=== PATIENT | male | born 1935 | race Caucasian/White ===

== ENCOUNTER 2016-07-09 20:34 | Observation (INO) | payer MEDICARE, BC ==
[~2016-07-09] VITALS: Ht 172.7 cm; Wt 90.1 kg
[~2016-07-09 20:34] MED LIST: ALLO300T74 PO; ATOR40TA64 PO; DIPH25CA84 PO; FAMO-14 PO; FINA5TAB40 PO; FOLI0.8T23 PO; FURO20TA4 PO; METO50TA5 PO; PYRI50TA24 PO; UBID200C8 PO; WARF4TAB6 PO
--- OUTSIDE RECORDS SUMMARY | 2016-07-09 20:39 | XMS REPORT | Continuity of Care Document ---
Demographics Preferred Language Unknown Marital Status Unknown Pentecostalism Affiliation Unknown Race Unknown Ethnic Group Unknown Author Author [facility] Organization [facility] Address Unknown Phone Unavailable Allergies Medications Medication Packaging Start Date Stop Date Route Dosage Sig Ambien 10 mg tablet Tablet 12/16/2015 10 mg 1 tablet qhs Problems Date Dx Coded Attending Type Code Diagnosis Diagnosed By 08/15/2015 G47.00 Insomnia, unspecified RUY MULLINS MD 08/15/2015 G47.33 Obstructive sleep apnea (adult) (pediatric) RUY MULLINS MD 11/07/2015 G47.33 Obstructive sleep apnea (adult) (pediatric) RUY MULLINS MD Procedures Code Description [place] [address] Office or other outpatient visit for the evaluation and management of a new patient, which requires RUY MULLINS MD 09/13/2015 81113 Office or other outpatient visit for the evaluation and management of a new patient, which requires RUY MULLINS MD 09/15/2015 72992 Office or other outpatient visit for the evaluation and management of an established patient, which RUY MULLINS MD 11/07/2015 36507 Office or other outpatient visit for the evaluation and management of an established patient, which RUY MULLINS MD 12/02/2015 18806 Office or other outpatient visit for the evaluation and management of an established patient, which RUY MULLINS MD 12/20/2015 Results Encounters ACCT No. Visit Date/Time Discharge Status Pt. Type Provider Facility Loc./Unit Complaint [id number] 09/13/2015 17:47:09 Document Registration
--- OUTSIDE RECORDS SUMMARY | 2016-07-09 20:39 | XMS REPORT | Referral Summary ---
Author Author [facility] Organization [facility] Address Unknown Phone Unavailable Care Team Providers Care Residential Real Estate Assistant Name Role Phone Wilmar Wilcox Primary Care Physician [phone] Encounter VC Date(s): 05/24/16 - 05/24/16 [facility] [address] [place] [id number]- Discharge Diagnosis: Actinic keratoses Discharge Disposition: 01-Home or Self Care Attending Physician: Niraj Wilcox MD Admitting Physician: Niraj Wiclox MD Vital Signs Most recent to 1 oldest [Reference Range]: Temperature Tympanic 36.7 degC [36.6-38.1 degC] (05/24/16 8:09 AM) Peripheral Pulse 80 bpm Rate [60-100 bpm] (05/24/16 8:09 AM) Respiratory Rate 14 br/min [14-20 br/min] (05/24/16 8:09 AM) Blood Pressure 138/80 mmHg [90-140/60-90 mmHg] (05/24/16 8:09 AM) Problem List Condition Effective Dates Status Health Status Informant Obesity(Confirmed) Active patient Allergies, Adverse Reactions, Alerts Substance Reaction Severity Status aspirin Active carisoprodol Active Medications allopurinol 300 mg oral tablet 300 mg 1 tabs, Oral, Daily, # 30 tabs, 0 Refill(s) Start Date: 05/09/16 Status: Ordered Ambien 5 mg oral tablet 5 mg 1 tabs, Oral, Bedtime (once a day), as needed for sleep, 0 Refill(s) Start Date: 05/09/16 Status: Ordered aspirin 81 mg oral tablet 81 mg 1 tabs, Oral, Daily, # 90 tabs, 0 Refill(s) Start Date: 05/09/16 Status: Ordered carvedilol 6.25 mg oral tablet 6.25 mg 1 tabs, Oral, BID, # 180 tabs, 0 Refill(s) Start Date: 05/09/16 Status: Ordered Co Q-10 200 mg, Oral, Daily, 0 Refill(s) Start Date: 05/09/16 Status: Ordered famotidine 20 mg oral tablet 20 mg 1 tabs, Oral, Daily, # 30 tabs, 0 Refill(s) Start Date: 05/09/16 Status: Ordered finasteride 5 mg oral tablet 5 mg 1 tabs, Oral, Daily, # 90 tabs, 0 Refill(s) Start Date: 05/09/16 Status: Ordered folic acid 0.4 mg oral tablet 0.4 mg 1 tabs, Oral, Daily, # 100 tabs, 0 Refill(s) Start Date: 05/09/16 Status: Ordered Lasix 40 mg oral tablet mg tabs, Oral, BID, 0 Refill(s) Start Date: 05/09/16 Status: Ordered Lipitor 40 mg oral tablet 40 mg 1 tabs, Oral, Daily, # 90 tabs, 0 Refill(s) Start Date: 05/09/16 Status: Ordered lisinopril 10 mg oral tablet 10 mg 1 tabs, Oral, Daily, # 90 tabs, 0 Refill(s) Start Date: 05/09/16 Status: Ordered potassium chloride 10 mEq oral capsule, extended release 10 mEq 1 caps, Oral, BID, # 180 caps, 0 Refill(s) Start Date: 05/09/16 Status: Ordered traMADol 50 mg oral tablet 1-2 tabs, Oral, q6hr, ndillons, # 60 tabs, 0 Refill(s) Start Date: 05/11/16 Stop Date: 06/12/16 Status: Ordered Vitamin B12 Oral, Daily, 0 Refill(s) Start Date: 05/09/16 Status: Ordered Vitamin B6 100 mg oral tablet mg tabs, Oral, Daily, 0 Refill(s) Start Date: 05/09/16 Status: Ordered warfarin 4 mg oral tablet mg tabs, Oral, Daily, take 1 daily TTHSS and 1.5 tabs MWF or as directed, 0 Refill(s) Start Date: 05/11/16 Status: Ordered zolpidem 10 mg oral tablet 10 mg 1 tabs, Oral, Bedtime (once a day), as needed for sleep, Coral Gardner, # 30 tabs, 0 Refill(s) Start Date: 05/24/16 Status: Ordered Results No data available for this section Immunizations No data available for this section Procedures Procedure Date Related Diagnosis Body Site Destruction (eg, laser surgery, 05/24/16 electrosurgery, cryosurgery, chemosurgery, surgical curettement), premalignant lesions (eg, actinic keratoses); first lesion Destruction (eg, laser surgery, 05/24/16 electrosurgery, cryosurgery, chemosurgery, surgical curettement), premalignant lesions (eg, actinic keratoses); second through 14 lesions, each (List separately in addition to code for first lesion) Social History Social History Type Response Smoking Status Former smoker; Type: Cigarettes; Date Last Use: 1955 Assessment and Plan Extracted from: Title: Office Visit Note Author: Niraj Wilcox MD Date: 05/24/16 Assessment/Plan 1.Actinic keratoses Using the cryo-guneach lesion was frozen for approximately 90 seconds. He tolerated this well. Natural progression of healing reviewed. If he runs into trouble or having any difficulties withthe healing process or if he has further questions or concerns or be glad to see him back. Encouraged him to keep his routinefollow-up for his other chronic health problems.
--- OUTSIDE RECORDS SUMMARY | 2016-07-09 20:39 | XMS REPORT | Continuity of Care Document ---
Author Author [facility] Organization [facility] Address Unknown Phone Unavailable Support Name Relationship Address Phone FREDA LERNER II, MD Caregiver [address] [place] [address] [place] [phone] SOFI ORTIZ MD Caregiver [address] [place] [address] [place] [phone] SILVIO FONSECA I Next Of Kin [address] [place] [address] Insurance Providers Payer Name Policy Number Subscriber Name Relationship Medicare [id number] Edmundo Fonseca 18 Self [facility] [id number] Edmundo Fonseca 18 Self Advance Directives Directive Response Recorded Date/Time Advanced Directives Type None 09/29/13 3:38am Ordered Resuscitation Status Full Code 09/29/13 2:41am Resuscitation Documents on File No 05/19/14 11:56am Problems Medical Problems Problem Onset Date Status Bradycardia Unknown Active Pneumonia Unknown Active Back spasm Unknown Active Back spasm Unknown Active Back spasm Unknown Active Altered mental status Unknown Active Back spasm Unknown Active New onset atrial fibrillation Unknown Active Volume depletion Unknown Active New onset atrial fibrillation Unknown Active Dyspnea Unknown Active CHF (congestive heart failure) Unknown Active Hypertension Unknown Active Dyspnea Unknown Active Medications Medication Dose Route Sig Days/Qty Instructions Order Date Discontinued Date Status Allopurinol 300 Mg PO BEDTIME 06/03/09 Active Metoprolol Succinate 25 Mg PO TWICE DAILY LUNCH & SUPPER 06/03/09 Discontinued Finasteride 5 Mg PO DAILY 06/03/09 Active Ezetimibe 10 Mg PO DAILY 06/03/09 06/04/13 Discontinued Rosuvastatin Calcium 10 Mg PO BEDTIME 06/03/09 05/09/13 Discontinued Zolpidem Tartrate 12.5 Mg PO BEDTIME 06/03/09 03/15/10 Discontinued Aspirin 81 Mg PO BEDTIME 06/02/09 01/01/14 Discontinued Irbesartan/Hydrochlorothiazide 1 Tab PO BEDTIME 06/03/09 03/15/10 Discontinued Pyridoxine Hcl 50 Mg PO GIVE WITH LUNCH 06/03/09 Active Folic Acid 0.8 Mg PO DAILY 06/03/09 03/15/10 Discontinued Fish Oil/[place]-3 Fatty Acids 1 Cap PO DAILY 06/02/09 05/09/13 Discontinued Ubidecarenone 300 Mg PO DAILY 06/03/09 06/04/13 Discontinued Docusate Sodium 100 Mg PO NEEDED 06/03/09 03/15/12 Discontinued Vit/Fe Fumarate/Fa 1 Tab PO DAILY 12/21/08 06/02/09 Discontinued Clopidogrel Bisulfate 75 Mg PO DAILY 06/02/09 06/04/13 Discontinued Zolpidem Tartrate 10 Mg PO BEDTIME 03/15/10 05/09/13 Discontinued Irbesartan/Hydrochlorothiazide 1 Tab PO DAILY 03/15/10 03/15/12 Discontinued Folic Acid 400 Mcg PO GIVE WITH LUNCH 03/15/12 Active Cyanocobalamin/Folic Acid 1 Each PO DAILY 03/15/12 06/04/13 Discontinued Losartan/Hydrochlorothiazide 1 Each PO DAILY 03/15/12 06/04/13 Discontinued Simvastatin 40 Mg PO DAILY 05/09/13 06/04/13 Discontinued Doxylamine Succinate 25 Mg PO BEDTIME 05/09/13 06/04/13 Discontinued Ubidecarenone 100 Mg PO DAILY 05/09/13 09/29/13 Discontinued Famotidine 20 Mg PO DAILY 06/04/13 Active Zolpidem Tartrate 12.5 Mg PO BEDTIME 09/23/13 01/04/14 Discontinued Cyclobenzaprine Hcl 10 Mg PO Every 8 Hours PRN PAIN &/OR SPASM 20 Qty 09/23/13 09/30/13 Discontinued Ubidecarenone 200 Mg PO DAILY 09/29/13 Active Hydrocodone Bit/Acetaminophen 1 Tab PO ONE TO THREE TIMES A DAY 09/2909/30/13 Discontinued Rivaroxaban 20 Mg PO GIVE WITH SUPPER 30 Qty 01/01/14 Active Metoprolol Tartrate 50 Mg PO TWICE DAILY WITH MEALS 60 Qty 01/01/14 Discontinued Doxycycline Hyclate 100 Mg PO TWICE DAILY WITH MEALS PRN INFLAMMATION 10 Days 01/04/14 01/04/14 Discontinued Zaleplon 5 Mg PO BEDTIME PRN INSOMNIA 30 Days 01/04/14 Active Atorvastatin Calcium 1 Tab PO DAILY 02/05/14 Active Metoprolol Tartrate 50 Mg PO TWICE DAILY WITH MEALS Take 1 tablet, by mouth, 2 times a day with meals. 02/11/14 Active Furosemide 20 Mg PO DAILY 30 Qty 05/19/14 Active Hydrocodone/Acetaminophen 1 Tab PO NEEDED 60 Qty 05/19/14 Active Social History Social History Problem Response Recorded Date/Time Chewing Tobacco Status No 09/29/2013 12:35am Hx Substance Use No 05/19/2014 11:56am Hx Alcohol Use No 05/19/2014 11:56am Has the pt used tobacco in the last 12 months No 05/19/2014 11:56am Tobacco Usage none 09/24/2013 9:00am Query Response Start Date Stop Date Smoking Status Former smoker Hospital Discharge Instructions No hospital discharge instructions. Plan of Care No plan of care. Functional Status Query Response Date Recorded Physical Hygiene Self February 11, 2014 7:36am Disabilities Hearing Visual September 30, 2013 5:43pm Devices Used Glasses September 30, 2013 5:43pm Dressing Self September 30, 2013 5:43pm Ambulation Self September 30, 2013 5:43pm Diet Self September 30, 2013 5:43pm Mental Status Alert Oriented September 30, 2013 5:43pm Disabilities Hearing Visual September 30, 2013 5:43pm Devices Used Glasses September 30, 2013 5:43pm Physical Hygiene Self February 11, 2014 7:36am Dressing Self September 30, 2013 5:43pm Ambulation Self September 30, 2013 5:43pm Diet Self September 30, 2013 5:43pm Allergies, Adverse Reactions, Alerts Allergen Type Severity Reaction Status Last Updated Sulfa (Sulfonamide Antibiotics) Allergy Unknown UNKNOWN Active 05/19/14 Meprobamate Allergy Unknown PER H&P Active 05/19/14 Morphine Adverse Reaction Unknown HALLUCINATIONS Active 05/19/14 Carisoprodol Allergy Severe UNRESPONSIVE Active 02/11/14 Immunizations Name Given Type Hx Influenza Vaccination Y DEC 2013 Historical Hx Pneumococcal Vaccination Y April 2013 Historical Hx Influenza Vaccination Y DEC 2013 Historical Vital Signs Acute Vital Signs Vital Response Date/Time Temperature (Fahrenheit) 96.5 deg F (96.8 - 99.1) Temperature (Calculated Celsius) 35.92087 degrees C (36.0 - 37.3) Temperature Source Temporal Pulse Rate (adult) 93 bpm (60 - 100) Respiratory Rate 16 breaths/min (10 - 20) O2 Sat by Pulse Oximetry 98 % (90 - 100) Oxygen Delivery Method Room Air Blood Pressure 149/71 mm Hg Blood Pressure Source Automatic Cuff Height 5 ft 8 in Weight 196 lb Body Mass Index 29.0 kg/m^2 Results Test Source Date Result Interp. Ref. Range Comments Activated Partial Thromboplast Time December 29, 2013 4:31am 26.1 SEC N 24-36 Alanine Aminotransferase (ALT/SGPT) February 11, 2014 7:43am 47 U/L N 21- 72 Albumin February 11, 2014 7:43am 3.9 G/DL N 3.5-5.0 Albumin/Globulin Ratio February 11, 2014 7:43am 1.4 RATIO N 1.1-2.2 Alkaline Phosphatase February 11, 2014 7:43am 80 U/L N 38-126 Anion Gap February 11, 2014 7:43am 10 MEQ/L N 5-15 Arterial Blood Base Excess June 04, 2013 4:05pm 4.2 MMOL/L H -2.0- 2.0 Arterial Blood HCO3 June 04, 2013 4:05pm 27 MEQ/L H 22-26 Arterial Blood Oxygen Saturation June 04, 2013 4:05pm 93.0 % L 95.0- 98.0 Arterial Blood Partial Pressure CO2 June 04, 2013 4:05pm 35 MMHG N 34-45 Arterial Blood Total CO2 June 04, 2013 4:05pm 28.4 MEQ/L H 23-27 Arterial Blood pH June 04, 2013 4:05pm 7.500 H 7.350-7.450 Aspartate Amino Transf (AST/SGOT) February 11, 2014 7:43am 30 U/L N 17- 59 BUN/Creatinine Ratio February 11, 2014 7:43am 22 RATIO N 6-26 Band Neutrophils # September 29, 2013 7:56pm 0.9 T/MM3 - COMMENT CALL LERNER IF ABNORMAL Band Neutrophils % September 29, 2013 7:56pm 9.0 % H 0-6 COMMENT CALL LERNER IF ABNORMAL Basophils # (Auto) February 11, 2014 7:43am 0.0 T/MM3 N 0-0.2 Basophils # (Manual) September 29, 2013 7:56pm 0.0 T/MM3 N 0-0.2 COMMENT CALL LERNER IF ABNORMAL Basophils % (Manual) September 29, 2013 7:56pm 0.0 % N 0-2 COMMENT CALL LERNER IF ABNORMAL Basophils (%) (Auto) February 11, 2014 7:43am 0.5 % N 0-2 Blood Urea Nitrogen February 11, 2014 7:43am 22.0 MG/DL H 9-20 C-Reactive Protein December 30, 2013 6:08am 177.4 MG/L H 0-9 Calcium Level February 11, 2014 7:43am 9.2 MG/DL N 8.4-10.2 Calculated Osmolality February 11, 2014 7:43am 271 MOSM/KG N 261-280 Carbon Dioxide Level February 11, 2014 7:43am 28 MEQ/L N 22-30 Chloride Level February 11, 2014 7:43am 101 MEQ/L N 98-107 Conjugated Bilirubin March 15, 2012 9:15am 0.00 MG/DL N 0.00-0.30 Creatine Kinase MB January 01, 2014 4:34am 1.4 NG/ML N 0-3.4 Creatinine February 11, 2014 7:43am 1.0 MG/DL N 0.8-1.5 Eosinophils # (Auto) February 11, 2014 7:43am 0.2 T/MM3 N 0-0.5 Eosinophils # (Manual) September 29, 2013 7:56pm 0.0 T/MM3 N 0-0.5 COMMENT CALL LERNER IF ABNORMAL Eosinophils % (Manual) September 29, 2013 7:56pm 0.0 % N 0-4 COMMENT CALL LERNER IF ABNORMAL Eosinophils (%) (Auto) February 11, 2014 7:43am 2.2 % N 0-4 Erythrocyte Sedimentation Rate December 30, 2013 6:08am 60 MM/HR H 0- 15 Folate January 01, 2014 4:34am > 20.0 NG/ML H 2.76-20 NORMAL ADULT RANGE: 2.76->20 ng/mL Globulin February 11, 2014 7:43am 2.8 G/DL N 2.4-3.6 Glucose Level February 11, 2014 7:43am 94 MG/DL N 75-110 Hematocrit February 11, 2014 7:43am 41.0 % N 41-53 Hemoglobin February 11, 2014 7:43am 13.3 GM/DL L 13.5-17.5 Influenza Type A Antigen June 04, 2013 5:10pm Negative - Negative for Flu A protein antigen. Assay sensitivity is90%. Influenza Type B Antigen June 04, 2013 5:10pm Negative - Negative for Flu B protein antigen. Assay sensitivity is90%. Lymphocytes # (Auto) February 11, 2014 7:43am 1.1 T/MM3 N 1-4.8 Lymphocytes # (Manual) September 29, 2013 7:56pm 1.4 T/MM3 N 1-4.8 COMMENT CALL LERNER IF ABNORMAL Lymphocytes % (Manual) September 29, 2013 7:56pm 14.0 % L 23-45 COMMENT CALL LERNER IF ABNORMAL Lymphocytes (%) (Auto) February 11, 2014 7:43am 12.9 % L 23-45 Magnesium Level February 11, 2014 7:43am 2.2 MG/DL N 1.6-2.3 Mean Corpuscular Hemoglobin February 11, 2014 7:43am 27.5 UUG N 26-34 Mean Corpuscular Hemoglobin Concent February 11, 2014 7:43am 32.4 GM/DL N 31-37 Mean Corpuscular Volume February 11, 2014 7:43am 84.7 UM3 N 80-100 Mean Platelet Volume February 11, 2014 7:43am 9.9 UM3 N 9.4-12.4 Monocytes # (Auto) February 11, 2014 7:43am 1.0 T/MM3 H 0-0.8 Monocytes # (Manual) September 29, 2013 7:56pm 0.2 T/MM3 N 0-0.8 COMMENT CALL LERNER IF ABNORMAL Monocytes % (Manual) September 29, 2013 7:56pm 2.0 % N 0-9.0 COMMENT CALL LERNER IF ABNORMAL Monocytes (%) (Auto) February 11, 2014 7:43am 11.5 % H 0-9.0 Neutrophils # (Auto) February 11, 2014 7:43am 6.1 T/MM3 N 1.8-7.7 Neutrophils # (Manual) September 29, 2013 7:56pm 7.6 T/MM3 N 1.8-7.7 COMMENT CALL LERNER IF ABNORMAL Neutrophils % (Manual) September 29, 2013 7:56pm 75.0 % H 33-66 COMMENT CALL LERNER IF ABNORMAL Neutrophils (%) (Auto) February 11, 2014 7:43am 72.7 % H 33-66 Platelet Count February 11, 2014 7:43am 171 T/MM3 N 130-400 Platelet Function Assay March 16, 2010 8:48am 0 % - P2Y1 WAS DRAWN 0940--- 03/16/10 1001 --- PI previously reported as: 0 % <20% inhibition: recommended pre-surgical level. >20% inhibition: indicates anti-platelet effect. NOTE: Test not reliable with NSAID use or low platelet counts. Not for use with inherited platelet disorders. Potassium Level February 11, 2014 7:43am 4.1 MEQ/L N 3.6-5 Prothromb Time International Ratio February 11, 2014 7:43am 1.64 H 0.81- 1.09 THERAPUTIC RANGE=2.00-3.00 FOR ANTI-THROMBOSIS THERAPUTIC RANGE=2.50- 3.50 FOR IMPLANTED VALVE RDW Standard Deviation February 11, 2014 7:43am 49.4 FL N 36.9-50.2 Red Blood Count February 11, 2014 7:43am 4.84 M/MM3 N 4.50-5.90 Sodium Level February 11, 2014 7:43am 139 MEQ/L N 134-144 Thyroid Stimulating Hormone (TSH) February 11, 2014 7:43am 2.47 MIU/L DN 0.47-4.68 Total Bilirubin February 11, 2014 7:43am 0.60 MG/DL N 0.20-1.30 Total Protein February 11, 2014 7:43am 6.7 G/DL N 6.3-8.2 Troponin I February 11, 2014 7:43am 0.030 ng/ml N 0-0.12 Unconjugated Bilirubin March 15, 2012 9:15am 0.80 MG/DL N 0.00-1.10 Uric Acid December 29, 2013 4:31am 4.1 MG/DL N 3.5-8.5 Urine Amorphous Phosphates December 29, 2013 5:46am Many - Has specimen been collected/obtained? Y Urine Bacteria February 11, 2014 8:25am Trace H - Has specimen been collected/obtained? Y Urine Bilirubin February 11, 2014 8:25am Negative - Has specimen been collected/obtained? Y Urine Blood February 11, 2014 8:25am 1+ H - Has specimen been collected/ obtained? Y Urine Coarse Granular Casts February 11, 2014 8:25am 0-1 /LPF - Has specimen been collected/obtained? Y Urine Collection Type February 11, 2014 8:25am Voided-not cc-midstr - Has specimen been collected/obtained? Y Urine Color February 11, 2014 8:25am Yellow - Has specimen been collected/obtained? Y Urine Glucose (UA) February 11, 2014 8:25am Negative - Has specimen been collected/obtained? Y Urine Hyaline Casts February 11, 2014 8:25am 0-1 /LPF - Has specimen been collected/obtained? Y Urine Ketones February 11, 2014 8:25am Negative - Has specimen been collected/obtained? Y Urine Leukocyte Esterase February 11, 2014 8:25am Negative - Has specimen been collected/obtained? Y Urine Mucus February 11, 2014 8:25am Present - Has specimen been collected/obtained? Y Urine Nitrite February 11, 2014 8:25am Negative - Has specimen been collected/obtained? Y Urine Protein February 11, 2014 8:25am Negative - Has specimen been collected/obtained? Y Urine RBC February 11, 2014 8:25am 3-5 /HPF H - Has specimen been collected/obtained? Y Urine Specific Ida February 11, 2014 8:25am >=1.030 H - Has specimen been collected/obtained? Y Urine Squamous Epithelial Cells February 11, 2014 8:25am 0-5 - Has specimen been collected/obtained? Y Urine Turbidity February 11, 2014 8:25am Clear - Has specimen been collected/obtained? Y Urine Urobilinogen February 11, 2014 8:25am 0.2 EU/DL - Has specimen been collected/obtained? Y Urine WBC February 11, 2014 8:25am 0-1 /HPF - Has specimen been collected/obtained? Y Urine pH February 11, 2014 8:25am 5.5 - Has specimen been collected/ obtained? Y Vitamin B12 Level January 01, 2014 4:34am 689 PG/ML N 239-931 White Blood Count February 11, 2014 7:43am 8.3 T/MM3 N 4.5-11.0 Chemistry Specimen Hemolysis February 11, 2014 7:43am < 15 0-25 0-25: No Hemolysis.26-70: Slight Hemolysis - can falsely elevate K and Urine Protein. 71-285: Moderate Hemolysis - can falsely elevate K, Troponin I, CA 19-9, PTH, CSF GLucose, and Urine Protein, and can falsely decrease Phenytoin. 286-999: Gross Hemolysis - can falsely elevate K, Troponin I, CA 19-9, PTH, CSF Glucose, and Urine Protine, and can falsely decrease Phenytoin. Recommend specimen recollection. Oxygen Delivery Method (LAB) June 04, 2013 4:05pm Room air - Urinalysis Comment June 04, 2013 6:37pm Microscopic not ind. - Has specimen been collected/obtained? Y EKG December 21, 2008 7:30am Complete - Turbidity February 11, 2014 7:43am < 20 0-20 Platelet Function - Aspirin December 21, 2008 7:25am 423 ARU - 350- 549 ARU: Therapeutic range for platelet function withaspirin therapy. 550-700 ARU: does not indicate effect of aspirin therapy. Test not reliable for NSAIDS, anti-platelet agents, low platelets, or low hematocrits. Not to be used for inherited platelet disorders. Reactive Lymphocytes % September 29, 2013 12:30am 3.0 % H 0-0 Glomerular Filtration Rate Calc February 11, 2014 7:43am 72 - Reactive Lymphocytes # September 29, 2013 12:30am 0.4 T/MM3 H 0-0 Immature Granulocyte # (Auto) February 11, 2014 7:43am 0.02 T/MM3 N 0.00- 0.03 Immature Granulocyte % (Auto) February 11, 2014 7:43am 0.2 % N 0.0-0.5 Arterial Blood pO2 at Patient Temp June 04, 2013 4:05pm 60 MMHG L 80 -100 Venous Blood Lactate June 04, 2013 4:25pm 1.9 MMOL/L N 0.6-2.2 Procalcitonin June 04, 2013 4:25pm < 0.05 NG/ML - PCT </=0.5 ng/ mL - sepsis not likely;PCT >0.5 and </=2 ng/mL - sepsis possible; PCT >2 ng/mL - sepsis likely; PCT >/=10 ng/mL - systemic inflammatory response - sepsis or septic shock highly indicated. Icterus Index February 11, 2014 7:43am < 2 0-7 [id number] Natriuretic Peptide February 11, 2014 7:43am 3910 PG/ML H 0 -175 Rule in cut points: <50 years old=450; 50-75 years old=900; >75 years old=1800; When utilizing ProBNP rule-in cut points, adjustment for impaired renal function is typically not required. Blood Culture Blood June 04, 2013 4:25pm NO GROWTH AFTER 5 DAYS Gram Stain Knee, Intraoperative Site-Left December 21, 2008 9:51am Procedures Procedure Status Date Provider(s) Colonoscopy completed 05/20/14 SOFI ORTIZ MD
--- OUTSIDE RECORDS SUMMARY | 2016-07-09 20:39 | XMS REPORT | Continuity of Care Document ---
Author Author [facility] Organization [facility] Address Unknown Phone Unavailable Support Name Relationship Address Phone ADRIANNA KEITA MD Caregiver [facility] [address] [facility] [address] [place] [address] FREDA LERNER II, MD Caregiver [address] [place] [address] [phone] SILVIO FONSECA I Next Of Kin [address] [place] [address] Insurance Providers Payer Name Policy Number Subscriber Name Relationship Medicare [id number] Edmundo Fonseca 18 Self [facility] [id number] Edmundo Fonseca 18 Self Advance Directives Directive Response Recorded Date/Time Advanced Directives Type None 09/29/13 3:38am Ordered Resuscitation Status Full Code 09/29/13 2:41am Resuscitation Documents on File No 02/05/14 12:30pm Chief Complaint and Reason for Visit Chief Complaint General Reason for Visit New onset atrial fibrillation Volume depletion Problems Medical Problems Problem Onset Date Status Bradycardia Unknown Active Pneumonia Unknown Active Back spasm Unknown Active Back spasm Unknown Active Back spasm Unknown Active Altered mental status Unknown Active Back spasm Unknown Active New onset atrial fibrillation Unknown Active Volume depletion Unknown Active New onset atrial fibrillation Unknown Active Medications Medication Dose Route Sig Days/Qty Instructions Order Date Discontinued Date Status Allopurinol 300 Mg PO BEDTIME 06/03/09 Active Metoprolol Succinate 25 Mg PO TWICE DAILY LUNCH & SUPPER 06/03/09 Discontinued Finasteride 5 Mg PO NEEDED EVERY OTHER DAY 06/03/09 Active Ezetimibe 10 Mg PO DAILY [...] Mg PO DAILY 06/03/09 03/15/10 Discontinued Fish Oil/[place]-3 Fatty Acids 1 Cap PO DAILY 06/02/09 [...] BEDTIME PRN INSOMNIA 30 Days 01/04/14 Active Metoprolol Tartrate 25 Mg PO TWICE DAILY WITH MEALS 60 Qty 02/05/14 Active Furosemide 1 Tab PO DAILY 02/05/14 Active Mirtazapine 15 Mg PO BEDTIME 02/05/14 Active Temazepam 15 Mg PO BEDTIME Take 1 capsule, by mouth, 1 time a day (at BEDTIME). 02/05/14 Active Atorvastatin Calcium 1 Tab PO DAILY 02/05/14 Active Social History Social History Problem Response Recorded Date/Time Smoking Status Former smoker 09/29/2013 3:38am When did patient START smoking? 20'S 02/05/2014 12:45pm When did patient STOP smoking? LATE 20S 02/05/2014 12:45pm Chewing Tobacco Status No 09/29/2013 12:35am Hx Substance Use No 02/05/2014 12:45pm Hx Alcohol Use No 02/05/2014 12:45pm Has the pt used tobacco in the last 12 months No 02/05/2014 12:45pm Query Response Start Date Stop Date Smoking Status Never smoker Hospital Discharge Instructions Instructions: Care Instructions: Reason for Hospitalization: BACK SPASM, NEW ONSET A-FIB I was in the hospital because (patient own words): "Terrible pain" Discharge Diet: REGULAR Discharge Activity: as tolerated Follow Up Appointments: Dr Lerner , AT 11:15am ([phone]) Dr Schneider FEBRUARY 04 AT 12:50pm ([phone]) Patient Instructions: back stretching BID Durable Medical Equipment: Pt needs a cane Condition at time of discharge: Good You have increased discomfort at incision site. Redness Hot or hardened area Temperature over 101 degress Fahrenheit Increased or foul smelling drainage Chills IF BLEEDING, PAIN OR PROGRESSIVE SWELLING OCCURS TO THE SITE, APPLY PRESSURE AND CALL 911. Condition at time of discharge: Fair 1.Clear dressing is to remain in place for 2 weeks. 2.Do not pick at it or scrub it while showering. 3.If the dressing begins to pull up, secure it with 4x4 gauze pad and tape. 4.You may shower; however, do not submerge yourself in water until the incision is completely healed. Mepilex 1.Dressing to remain in place until your follow up appointment. 2.If this dressing starts peeling up slightly, it may be reinforced, if it peels excessively, notify your surgeon's office. 3.You may shower with the dressing in place, but do not submerge in water 4.Do not allow water to seep under the dressing, if it should seep under, remove the dressing and notify your surgeon. Notify Physician If: Call your Surgeon if you have: 1.Chest pain, difficulty breathing, fever>100.5 degrees, chills, heart rate >100, confusion, or persistent nausea/vomitting. 2.Severe pain, swelling, redness, or warmth in either of your legs. 3.During office hours, call [phone] 4. After hours, please call [facility] at [phone], and have the short filler bunch machine operator page your Surgeon IN THE EVENT OF AN EMERGENCY, seek medical care at the nearest Emergency Room Condition at time of discharge: Good Care Plan Discharge Patient: Goal: Understand discharge plan Patient Instructions: see patient instructions Plan of Care Discharge Date 01/04/14 2:24pm Disposition 02 TO [facility] Condition at Discharge Improved Instructions/Education Provided Atrial Fibrillation Prescriptions See Medications Section Referrals FREDA LERNER II, MD Functional Status Query Response Date Recorded Physical Hygiene Self January 04, 2014 1:33pm Disabilities Hearing Visual September 30, 2013 5:43pm Devices Used Glasses September 30, 2013 5:43pm Dressing Self September 30, 2013 5:43pm Ambulation Self September 30, 2013 5:43pm Diet Self September 30, 2013 5:43pm Mental Status Alert Oriented September 30, 2013 5:43pm Disabilities Hearing Visual September 30, 2013 5:43pm Devices Used Glasses September 30, 2013 5:43pm Physical Hygiene Self January 04, 2014 1:33pm Dressing Self September 30, 2013 5:43pm Ambulation Self September 30, 2013 5:43pm Diet Self September 30, 2013 5:43pm Allergies, Adverse Reactions, Alerts Allergen Type Severity Reaction Status Last Updated Sulfa (Sulfonamide Antibiotics) Allergy Unknown Active 02/05/14 Morphine Allergy Unknown Active 02/05/14 Carisoprodol Allergy Severe UNRESPONSIVE Active 02/05/14 Immunizations Name Given Type Hx Influenza Vaccination Y DEC 2013 Historical Hx Pneumococcal Vaccination Y April 2013 Historical Hx Influenza Vaccination Y DEC 2013 Historical Vital Signs Acute Vital Signs Vital Response Date/Time Temperature (Fahrenheit) 98.1 deg F (96.8 - 99.1) Temperature (Calculated Celsius) 36.22504 degrees C (36.0 - 37.3) Temperature Source Temporal Pulse Rate (adult) 104 bpm (60 - 100) O2 Sat by Pulse Oximetry 97 % (90 - 100) Oxygen Delivery Method Room Air Blood Pressure 129/70 mm Hg Blood Pressure Source Automatic Cuff Height 5 ft 8 in Weight 192 lb Body Mass Index 29.0 kg/m^2 Results Test Source Date Result Interp. Ref. Range Comments Activated Partial Thromboplast Time December 29, 2013 4:31am 26.1 SEC N 24-36 Alanine Aminotransferase (ALT/SGPT) January 01, 2014 4:34am 41 U/L N 21-72 Albumin January 01, 2014 4:34am 3.3 G/DL L 3.5-5.0 Albumin/Globulin Ratio January 01, 2014 4:34am 1.3 RATIO N 1.1-2.2 Alkaline Phosphatase January 01, 2014 4:34am 125 U/L N 38-126 Anion Gap January 04, 2014 4:22am 10 MEQ/L N 5-15 Arterial Blood Base [...] 7.500 H 7.350-7.450 Aspartate Amino Transf (AST/SGOT) January 01, 2014 4:34am 50 U/L N 17- 59 BUN/Creatinine Ratio January 04, 2014 4:22am 19 RATIO N 6-26 Band Neutrophils # September 29, 2013 7:56pm 0.9 T/MM3 - COMMENT CALL LERNER IF ABNORMAL Band Neutrophils % September 29, 2013 7:56pm 9.0 % H 0-6 COMMENT CALL LERNER IF ABNORMAL Basophils # (Auto) January 02, 2014 4:50am 0.0 T/MM3 N 0-0.2 Basophils # (Manual) September 29, 2013 7:56pm 0.0 T/MM3 N 0-0.2 COMMENT CALL LERNER IF ABNORMAL Basophils % (Manual) September 29, 2013 7:56pm 0.0 % N 0-2 COMMENT CALL LERNER IF ABNORMAL Basophils (%) (Auto) January 02, 2014 4:50am 0.4 % N 0-2 Blood Urea Nitrogen January 04, 2014 4:22am 15.0 MG/DL N 9-20 C-Reactive Protein December 30, 2013 6:08am 177.4 MG/L H 0-9 Calcium Level January 04, 2014 4:22am 8.7 MG/DL N 8.4-10.2 Calculated Osmolality January 04, 2014 4:22am 269 MOSM/KG N 261-280 Carbon Dioxide Level January 04, 2014 4:22am 28 MEQ/L N 22-30 Chloride Level January 04, 2014 4:22am 102 MEQ/L N 98-107 Conjugated Bilirubin March 15, 2012 9:15am 0.00 MG/DL N 0.00-0.30 Creatine Kinase MB January 01, 2014 4:34am 1.4 NG/ML N 0-3.4 Creatinine January 04, 2014 4:22am 0.8 MG/DL N 0.8-1.5 Eosinophils # (Auto) January 02, 2014 4:50am 0.1 T/MM3 N 0-0.5 Eosinophils # (Manual) September 29, 2013 7:56pm 0.0 T/MM3 N 0-0.5 COMMENT CALL LERNER IF ABNORMAL Eosinophils % (Manual) September 29, 2013 7:56pm 0.0 % N 0-4 COMMENT CALL LERNER IF ABNORMAL Eosinophils (%) (Auto) January 02, 2014 4:50am 1.3 % N 0-4 Erythrocyte Sedimentation Rate December 30, 2013 6:08am 60 MM/HR H 0- 15 Folate January 01, 2014 4:34am > 20.0 NG/ML H 2.76-20 NORMAL ADULT RANGE: 2.76->20 ng/mL Globulin January 01, 2014 4:34am 2.6 G/DL N 2.4-3.6 Glucose Level January 04, 2014 4:22am 89 MG/DL N 75-110 Hematocrit January 02, 2014 4:50am 40.5 % L 41-53 Hemoglobin January 02, 2014 4:50am 13.0 GM/DL L 13.5-17.5 Influenza Type A Antigen June 04, 2013 5:10pm Negative - Negative for Flu A protein antigen. Assay sensitivity is90%. Influenza Type B Antigen June 04, 2013 5:10pm Negative - Negative for Flu B protein antigen. Assay sensitivity is90%. Lymphocytes # (Auto) January 02, 2014 4:50am 1.1 T/MM3 N 1-4.8 Lymphocytes # (Manual) September 29, 2013 7:56pm 1.4 T/MM3 N 1-4.8 COMMENT CALL LERNER IF ABNORMAL Lymphocytes % (Manual) September 29, 2013 7:56pm 14.0 % L 23-45 COMMENT CALL LERNER IF ABNORMAL Lymphocytes (%) (Auto) January 02, 2014 4:50am 14.5 % L 23-45 Magnesium Level September 29, 2013 12:30am 2.2 MG/DL N 1.6-2.3 Mean Corpuscular Hemoglobin January 02, 2014 4:50am 27.3 UUG N 26-34 Mean Corpuscular Hemoglobin Concent January 02, 2014 4:50am 32.1 GM/DL N 31-37 Mean Corpuscular Volume January 02, 2014 4:50am 84.9 UM3 N 80-100 Mean Platelet Volume January 02, 2014 4:50am 10.2 UM3 N 9.4-12.4 Monocytes # (Auto) January 02, 2014 4:50am 0.8 T/MM3 N 0-0.8 Monocytes # (Manual) September 29, 2013 7:56pm 0.2 T/MM3 N 0-0.8 COMMENT CALL LERNER IF ABNORMAL Monocytes % (Manual) September 29, 2013 7:56pm 2.0 % N 0-9.0 COMMENT CALL LERNER IF ABNORMAL Monocytes (%) (Auto) January 02, 2014 4:50am 11.1 % H 0-9.0 Neutrophils # (Auto) January 02, 2014 4:50am 5.5 T/MM3 N 1.8-7.7 Neutrophils # (Manual) September 29, 2013 7:56pm 7.6 T/MM3 N 1.8-7.7 COMMENT CALL LERNER IF ABNORMAL Neutrophils % (Manual) September 29, 2013 7:56pm 75.0 % H 33-66 COMMENT CALL LERNER IF ABNORMAL Neutrophils (%) (Auto) January 02, 2014 4:50am 72.4 % H 33-66 Platelet Count January 02, 2014 4:50am 280 T/MM3 N 130-400 Platelet Function Assay March 16, 2010 8:48am 0 % - P2Y1 WAS DRAWN 0940--- 03/16/10 1001 --- PI previously reported as: 0 % <20% inhibition: recommended pre-surgical level. >20% inhibition: indicates anti-platelet effect. NOTE: Test not reliable with NSAID use or low platelet counts. Not for use with inherited platelet disorders. Potassium Level January 04, 2014 4:22am 3.7 MEQ/L N 3.6-5 Prothromb Time International Ratio December 29, 2013 4:31am 1.41 H 0.81 -1.09 THERAPUTIC RANGE=2.00-3.00 FOR ANTI-THROMBOSIS THERAPUTIC RANGE=2.50- 3.50 FOR IMPLANTED VALVE RDW Standard Deviation January 02, 2014 4:50am 48.4 FL N 36.9-50.2 Red Blood Count January 02, 2014 4:50am 4.77 M/MM3 N 4.50-5.90 Sodium Level January 04, 2014 4:22am 140 MEQ/L N 134-144 Thyroid Stimulating Hormone (TSH) January 01, 2014 4:34am 1.30 MIU/L N 0.47-4.68 Total Bilirubin January 01, 2014 4:34am 1.00 MG/DL N 0.20-1.30 Total Protein January 01, 2014 4:34am 5.9 G/DL L 6.3-8.2 Troponin I January 01, 2014 4:34am 0.043 ng/ml N 0-0.12 Unconjugated Bilirubin March 15, 2012 9:15am 0.80 MG/DL N 0.00-1.10 Uric Acid December 29, 2013 4:31am 4.1 MG/DL N 3.5-8.5 Urine Amorphous Phosphates December 29, 2013 5:46am Many - Has specimen been collected/obtained? Y Urine Bacteria December 29, 2013 5:46am None seen - Has specimen been collected/obtained? Y Urine Bilirubin December 29, 2013 5:46am Negative - --- 01/01/14 1359 ---UBILI previously reported as: 1+ H Urine Blood December 29, 2013 5:46am 2+ H - Has specimen been collected/obtained? Y Urine Collection Type December 29, 2013 5:46am Voided-not cc-midstr - Has specimen been collected/obtained? Y Urine Color December 29, 2013 5:46am Katelyn - Has specimen been collected/obtained? Y Urine Glucose (UA) December 29, 2013 5:46am Negative - Has specimen been collected/obtained? Y Urine Hyaline Casts December 29, 2013 5:46am 5-10 /LPF - Has specimen been collected/obtained? Y Urine Ketones December 29, 2013 5:46am 2+ H - Has specimen been collected/obtained? Y Urine Leukocyte Esterase December 29, 2013 5:46am Negative - Has specimen been collected/obtained? Y Urine Mucus September 29, 2013 1:58am Present - Has specimen been collected/obtained? Y Urine Nitrite December 29, 2013 5:46am Negative - Has specimen been collected/obtained? Y Urine Protein December 29, 2013 5:46am 2+ H - Has specimen been collected/obtained? Y Urine RBC December 29, 2013 5:46am None seen /HPF - Has specimen been collected/obtained? Y Urine Specific [place] December 29, 2013 5:46am >=1.030 H - Has specimen been collected/obtained? Y Urine Squamous Epithelial Cells September 30, 2013 6:14am 0-5 - Has specimen been collected/obtained? Y Urine Turbidity December 29, 2013 5:46am Clear - Has specimen been collected/obtained? Y Urine Urobilinogen December 29, 2013 5:46am 0.2 EU/DL - Has specimen been collected/obtained? Y Urine WBC December 29, 2013 5:46am 1-3 /HPF - Has specimen been collected/obtained? Y Urine pH December 29, 2013 5:46am 5.5 - Has specimen been collected/ obtained? Y Vitamin B12 Level January 01, 2014 4:34am 689 PG/ML N 239-931 White Blood Count January 02, 2014 4:50am 7.6 T/MM3 N 4.5-11.0 Chemistry Specimen Hemolysis January 04, 2014 4:22am < 15 0-25 0-25 : No Hemolysis.26-70: Slight Hemolysis - can falsely [...] December 21, 2008 7:30am Complete - Turbidity January 04, 2014 4:22am < 20 0-20 Platelet Function - Aspirin [...] % H 0-0 Glomerular Filtration Rate Calc January 04, 2014 4:22am 93 - Reactive Lymphocytes # September 29, 2013 12:30am 0.4 T/MM3 H 0-0 Immature Granulocyte # (Auto) January 02, 2014 4:50am 0.02 T/MM3 N 0.00-0.03 Immature Granulocyte % (Auto) January 02, 2014 4:50am 0.3 % N 0.0-0.5 Arterial Blood pO2 at [...] or septic shock highly indicated. Icterus Index January 04, 2014 4:22am < 2 0-7 VA-Qrk-H-Type Natriuretic Peptide September 29, 2013 12:30am 1310 PG/ML H 0- 175 Rule in cut points: <50 years old=450; 50-75 years old=900; >75 years old=1800; When utilizing ProBNP rule-in cut points, adjustment for impaired renal function is typically not required. Blood Culture Blood June 04, 2013 4:25pm NO GROWTH AFTER 5 DAYS Gram Stain Knee, Intraoperative Site-Left December 21, 2008 9:51am Name: EDMUNDO FONSECA Unit #: [id number] : 1935 Sex: M Loc / Svc: MED DOS: 12/29/13 Signed Report #: [id number] DIAGNOSTIC IMAGING REPORT TYPE OF EXAM: CHEST, PA & LATERAL Dictated By: LEN HANNAH MD INDICATION: ITS.REASON: AFIB CHEST 2-VIEWS UPRIGHT (PA & LAT): COMPARISON: September 29, 2013 FINDINGS: The lungs are clear without evidence of focal abnormal airspace opacity. There is no pleural effusion or pneumothorax. The heart size, mediastinal contours and pulmonary vascularity are stable. IMPRESSION: No acute cardiopulmonary disease. . Procedures Procedure Status Date Provider(s) ECHO EXAMINATION PROCEDURE completed 12/29/13 ADRIANNA KEITA MD Encounters Encounter Location Date/Time Departed Clinic [facility] 02/05/14 11:53am Discharged Inpatient [facility] 12/29/13 7:41am
--- OUTSIDE RECORDS SUMMARY | 2016-07-09 20:39 | XMS REPORT | Continuity of Care Document ---
Author Author [facility] Organization [facility] Address Unknown Phone Unavailable Support Name Relationship Address Phone FREDA LERNER II, MD Caregiver [address] [place] [phone] JEN ANDREW MD Caregiver [address] [place] [phone] SILVIO FONSECA I Next Of Kin [address] [place] [address] Insurance Providers Payer Name Policy Number Subscriber Name Relationship Medicare [id number] Edmundo Fonseca 18 Self [facility] [id number] Edmundo Fonseca 18 Self Advance Directives Directive Response Recorded Date/Time Advanced Directives Type None 09/29/13 3:38am Ordered Resuscitation Status Full Code 09/29/13 2:41am Resuscitation Documents on File N Full Code 12/29/13 8:18am Chief Complaint and Reason for Visit Chief Complaint NEW ONSET A FIB,NEAR SYNCOPE VOLUME DEPLETION Reason for Visit Bradycardia Pneumonia Altered mental status Back spasm New onset atrial fibrillation Volume depletion New onset atrial fibrillation Problems Medical Problems Problem Onset Date Status [...] Mg PO DAILY 06/03/09 03/15/10 Discontinued Fish Oil/[place]-3 Fatty Acids 1 Cap PO DAILY 06/02/09 [...] DAILY 03/15/10 03/15/12 Discontinued Folic Acid 400 Mg PO GIVE WITH LUNCH 03/15/12 Active Cyanocobalamin/Folic [...] 09/23/13 09/30/13 Discontinued Ubidecarenone 200 Mg PO GIVE WITH LUNCH 09/29/13 Active Hydrocodone Bit/Acetaminophen 1 Tab PO ONE TO THREE TIMES A DAY 09/2909/30/13 Discontinued Rosuvastatin Calcium 10 Mg PO BEDTIME Take 1 tablet, by mouth, one time a day at bedtime. 12/29/13 Active Rivaroxaban 20 Mg PO GIVE WITH SUPPER 30 Qty 01/01/14 Active Metoprolol Tartrate 50 Mg PO TWICE DAILY WITH MEALS 60 Qty 01/01/14 Active Doxycycline Hyclate 100 Mg PO TWICE DAILY WITH MEALS PRN INFLAMMATION 10 Days 01/04/14 01/04/14 Discontinued Zaleplon 5 Mg PO BEDTIME PRN INSOMNIA 30 Days 01/04/14 Active Doxycycline Hyclate 100 Mg PO TWICE DAILY WITH MEALS 10 Days 01/04/14 Active Social History Social History Problem Response Recorded Date/Time Smoking Status Former smoker 09/29/2013 3:38am Chewing Tobacco Status No 09/29/2013 12:35am Hx Substance Use No 12/29/2013 4:58am Hx Alcohol Use No 12/29/2013 4:58am Has the pt used tobacco in the last 12 months No 12/29/2013 8:19am Query Response Start Date Stop Date Smoking Status Never smoker Hospital Discharge Instructions Instructions: Care Instructions: Reason for Hospitalization: BACK SPASM, NEW ONSET A-FIB I was in the hospital because (patient own words): "Terrible pain" Discharge Diet: REGULAR Discharge Activity: as tolerated Follow Up Appointments: Dr Lerner , AT 11:15am ([phone]) Dr Schneider FEBRUARY 04 AT 12:50pm ([phone]) Patient Instructions: back stretching BID Durable Medical Equipment: Pt needs a cane Condition at time of discharge: Good SHOULD YOUR SYMPTOMS RETURN YOU CAN CONTACT DR RODRIGUEZ OR THE WOUND CARE CLINIC THROUGH THE OFFICE OR RETURN TO THE EMERGENCY DEPARTMENT FOR EMERGENT EVALUATION Wound/Incision Care: KEEP THE AREA DRY. Condition at time of discharge: Good Plan of Care Discharge Date 01/04/14 2:24pm Disposition 01 DISCHARGED HOME, SELF-CARE Instructions/Education Provided Atrial Fibrillation Prescriptions See Medications Section Functional Status Query Response Date Recorded Physical [...] Updated Sulfa (Sulfonamide Antibiotics) Allergy Unknown Active 09/28/13 Morphine Allergy Unknown Active 12/29/13 Carisoprodol Allergy Severe UNRESPONSIVE Active 12/29/13 Immunizations Name Given Type Hx Influenza Vaccination Y November 2012 Historical Hx Pneumococcal Vaccination Y April 2013 Historical Hx Influenza Vaccination Y November 2012 Historical Vital Signs Acute Vital Signs Vital Response Date/Time Temperature (Fahrenheit) 97.9 deg F (96.8 - 99.1) Temperature (Calculated Celsius) 36.50241 degrees C (36.0 - 37.3) Temperature Source Temporal Pulse Rate (adult) 72 bpm (60 - 100) Respiratory Rate 16 breaths/min (10 - 20) Height 5 ft 8 in Weight 216 lb Body Mass Index 32.0 kg/m^2 Results Test Source Date Result Interp. [...] June 04, 2013 4:05pm 7.500 H 7.350-7.450 Arterial Blood pO2 at Patient Temp June 04, 2013 4:05pm 60 MMHG L 80 -100 Aspartate Amino Transf (AST/SGOT) January 01, 2014 [...] 04, 2014 4:22am 28 MEQ/L N 22-30 Chemistry Specimen Hemolysis January 04, 2014 4:22am [...] can falsely decrease Phenytoin. Recommend specimen recollection. Chloride Level January 04, 2014 4:22am 102 MEQ/L N 98-107 Conjugated Bilirubin March 15, 2012 9:15am 0.00 MG/DL N 0.00-0.30 Creatine Kinase MB January 01, 2014 4:34am 1.4 NG/ML N 0-3.4 Creatinine January 04, 2014 4:22am 0.8 MG/DL N 0.8-1.5 EKG December 21, 2008 7:30am Complete - Eosinophils # (Auto) January 02, 2014 4:50am [...] 01, 2014 4:34am 2.6 G/DL N 2.4-3.6 Glomerular Filtration Rate Calc January 04, 2014 4:22am 93 - Glucose Level January 04, 2014 4:22am 89 MG/DL N 75-110 Hematocrit January 02, 2014 4:50am 40.5 % L 41-53 Hemoglobin January 02, 2014 4:50am 13.0 GM/DL L 13.5-17.5 Icterus Index January 04, 2014 4:22am < 2 0-7 Immature Granulocyte # (Auto) January 02, 2014 4:50am 0.02 T/MM3 N 0.00-0.03 Immature Granulocyte % (Auto) January 02, 2014 4:50am 0.3 % N 0.0-0.5 Influenza Type A Antigen June 04, 2013 [...] 02, 2014 4:50am 11.1 % H 0-9.0 XJ-Feo-S-Type Natriuretic Peptide September 29, 2013 12:30am 1310 PG/ML H 0- 175 Rule in cut points: <50 years old=450; 50-75 years old=900; >75 years old=1800; When utilizing ProBNP rule-in cut points, adjustment for impaired renal function is typically not required. Neutrophils # (Auto) January 02, 2014 4:50am 5.5 T/MM3 N 1.8-7.7 Neutrophils # (Manual) September 29, 2013 7:56pm 7.6 T/MM3 N 1.8-7.7 COMMENT CALL LERNER IF ABNORMAL Neutrophils % (Manual) September 29, 2013 7:56pm 75.0 % H 33-66 COMMENT CALL LERNER IF ABNORMAL Neutrophils (%) (Auto) January 02, 2014 4:50am 72.4 % H 33-66 Oxygen Delivery Method (LAB) June 04, 2013 4:05pm Room air - Platelet Count January 02, 2014 4:50am 280 T/MM3 N 130-400 Platelet Function - Aspirin December 21, 2008 7:25am 423 ARU - 350- 549 ARU: Therapeutic range for platelet function withaspirin therapy. 550-700 ARU: does not indicate effect of aspirin therapy. Test not reliable for NSAIDS, anti-platelet agents, low platelets, or low hematocrits. Not to be used for inherited platelet disorders. Platelet Function Assay March 16, 2010 8:48am 0 % - P2Y1 WAS DRAWN 0940--- 03/16/10 1001 --- PI previously reported as: 0 % <20% inhibition: recommended pre-surgical level. >20% inhibition: indicates anti-platelet effect. NOTE: Test not reliable with NSAID use or low platelet counts. Not for use with inherited platelet disorders. Potassium Level January 04, 2014 4:22am 3.7 MEQ/L N 3.6-5 Procalcitonin June 04, 2013 4:25pm < 0.05 NG/ML - PCT </=0.5 ng/ mL - sepsis not likely;PCT >0.5 and </=2 ng/mL - sepsis possible; PCT >2 ng/mL - sepsis likely; PCT >/=10 ng/mL - systemic inflammatory response - sepsis or septic shock highly indicated. Prothromb Time International Ratio December 29, 2013 4:31am 1.41 H 0.81 -1.09 THERAPUTIC RANGE=2.00-3.00 FOR ANTI-THROMBOSIS THERAPUTIC RANGE=2.50- 3.50 FOR IMPLANTED VALVE RDW Standard Deviation January 02, 2014 4:50am 48.4 FL N 36.9-50.2 Reactive Lymphocytes # September 29, 2013 12:30am 0.4 T/MM3 H 0-0 Reactive Lymphocytes % September 29, 2013 12:30am 3.0 % H 0-0 Red Blood Count January 02, 2014 4:50am 4.77 M/MM3 N 4.50-5.90 Sodium Level January 04, 2014 4:22am 140 MEQ/L N 134-144 Thyroid Stimulating Hormone (TSH) January 01, 2014 4:34am 1.30 MIU/L N 0.47-4.68 Total Bilirubin January 01, 2014 4:34am 1.00 MG/DL N 0.20-1.30 Total Protein January 01, 2014 4:34am 5.9 G/DL L 6.3-8.2 Troponin I January 01, 2014 4:34am 0.043 ng/ml N 0-0.12 Turbidity January 04, 2014 4:22am < 20 0-20 Unconjugated Bilirubin March 15, 2012 9:15am 0.80 MG/DL N 0.00-1.10 Uric Acid December 29, 2013 4:31am 4.1 MG/DL N 3.5-8.5 Urinalysis Comment June 04, 2013 6:37pm Microscopic not ind. - Has specimen been collected/obtained? Y Urine Amorphous Phosphates December 29, 2013 5:46am [...] Has specimen been collected/obtained? Y Urine Specific [place] December 29, 2013 5:46am >=1.030 H - [...] - Has specimen been collected/ obtained? Y Venous Blood Lactate June 04, 2013 4:25pm 1.9 MMOL/L N 0.6-2.2 White Blood Count January 02, 2014 4:50am 7.6 T/MM3 N 4.5-11.0 Blood Culture Blood June 04, 2013 4:25pm NO GROWTH AFTER 5 DAYS Gram Stain Knee, Intraoperative Site-Left December 21, 2008 9:51am Name: EDMUNDO FONSECA Unit #: [id number] : 1935 Sex: M Loc / Svc: MED DOS: 12/29/13 Signed Report #: [id number] DIAGNOSTIC IMAGING REPORT TYPE OF EXAM: CHEST, [...] IMPRESSION: No acute cardiopulmonary disease. . Procedures No known history of procedures. Encounters Encounter Location Date/Time Discharged Inpatient 12/29/13 7:41am Recent Diagnosis Bradycardia Pneumonia Altered mental status Back spasm New onset atrial fibrillation Volume depletion New onset atrial fibrillation
--- OUTSIDE RECORDS SUMMARY | 2016-07-09 20:39 | XMS REPORT | Continuity of Care Document ---
Author Author [facility] Organization [facility] Address Unknown Phone Unavailable Support Name Relationship Address Phone MILAGROS KEYS MD Caregiver [address] [place] [address] FREDA LERNER II, MD Caregiver [address] [facility] [address] [place] [phone] SILVIO FONSECA I Next Of Kin [address] [place] [address] Insurance Providers Payer Name Policy Number Subscriber Name Relationship Medicare [id number] Edmundo Fonseca 18 Self [facility] [id number] Edmundo Fonseca 18 Self Advance Directives Directive Response Recorded Date/Time Advanced Directives Type None 09/29/13 3:38am Ordered Resuscitation Status Full Code 09/29/13 2:41am Chief Complaint and Reason for Visit Chief [...] Mg PO DAILY 06/03/09 03/15/10 Discontinued Fish Oil/[place]-3 Fatty Acids 1 Cap PO DAILY 06/02/09 [...] BEDTIME PRN INSOMNIA 30 Days 01/04/14 Active Mirtazapine 15 Mg PO BEDTIME Take 1 tablet, by mouth, 1 time a day at bedtime. 02/05/14 Active Atorvastatin Calcium 1 Tab PO DAILY 02/05/14 Active Metoprolol Tartrate 50 Mg PO TWICE DAILY WITH MEALS 02/11/14 Active Social History Social History Problem Response Recorded Date/Time Smoking Status Former smoker 09/29/2013 3:38am Chewing Tobacco Status No 09/29/2013 12:35am Hx Substance Use No 02/11/2014 7:36am Hx Alcohol Use No 02/11/2014 7:36am Has the pt used tobacco in the last 12 months No 02/05/2014 12:45pm Query Response Start Date Stop Date Smoking Status Never smoker Hospital Discharge Instructions Instructions: Care Instructions: Reason for Hospitalization: BACK SPASM, NEW ONSET A-FIB I was in the hospital because (patient own words): "Terrible pain" Discharge Diet: REGULAR Discharge Activity: as tolerated Follow Up Appointments: Dr Lerner , AT 11:15am ([phone]) Dr Schneider FEBRUARY 04 AT 12:50pm ([phone]) Patient Instructions: back stretching BID Durable Medical Equipment: Pt needs a cane Condition at time of discharge: Good Plan of Care Discharge Date 01/04/14 2:24pm Disposition 02 TO [facility] Condition at Discharge Improved Instructions/Education [...] Updated Sulfa (Sulfonamide Antibiotics) Allergy Unknown Active 02/11/14 Morphine Allergy Unknown Active 02/11/14 Carisoprodol Allergy Severe UNRESPONSIVE Active 02/11/14 Immunizations Name Given Type Hx Influenza Vaccination Y DEC 2013 Historical Hx Pneumococcal Vaccination Y April 2013 Historical Hx Influenza Vaccination Y DEC 2013 Historical Vital Signs Acute Vital Signs Vital Response Date/Time Temperature (Fahrenheit) 98.0 deg F (96.8 - 99.1) Temperature (Calculated Celsius) 36.51356 degrees C (36.0 - 37.3) Pulse Rate (adult) 71 bpm (60 - 100) Respiratory Rate 18 breaths/min (10 - 20) O2 Sat by Pulse Oximetry 96 % (90 - 100) Blood Pressure 132/71 mm Hg Height 5 ft 8 in Weight 199 lb Body Mass Index 30.0 kg/m^2 Results Test Source Date Result Interp. [...] L 80 -100 Aspartate Amino Transf (AST/SGOT) February 11, 2014 [...] 11, 2014 7:43am 28 MEQ/L N 22-30 Chemistry Specimen Hemolysis February 11, 2014 7:43am [...] decrease Phenytoin. Recommend specimen recollection. Chloride Level February 11, 2014 7:43am 101 MEQ/L N 98-107 Conjugated Bilirubin March 15, 2012 9:15am 0.00 MG/DL N 0.00-0.30 Creatine Kinase MB January 01, 2014 4:34am 1.4 NG/ML N 0-3.4 Creatinine February 11, 2014 7:43am 1.0 MG/DL N 0.8-1.5 EKG December 21, 2008 7:30am Complete - Eosinophils # (Auto) February 11, 2014 7:43am [...] 11, 2014 7:43am 2.8 G/DL N 2.4-3.6 Glomerular Filtration Rate Calc February 11, 2014 7:43am 72 - Glucose Level February 11, 2014 7:43am 94 MG/DL N 75-110 Hematocrit February 11, 2014 7:43am 41.0 % N 41-53 Hemoglobin February 11, 2014 7:43am 13.3 GM/DL L 13.5-17.5 Icterus Index February 11, 2014 7:43am < 2 0-7 Immature Granulocyte # (Auto) February 11, 2014 7:43am 0.02 T/MM3 N 0.00- 0.03 Immature Granulocyte % (Auto) February 11, 2014 7:43am 0.2 % N 0.0-0.5 Influenza Type A Antigen [...] 11, 2014 7:43am 11.5 % H 0-9.0 BR-Yzu-G-Type Natriuretic Peptide February 11, 2014 7:43am 3910 PG/ML H 0 -175 Rule in cut points: <50 years old=450; 50-75 years old=900; >75 years old=1800; When utilizing ProBNP rule-in cut points, adjustment for impaired renal function is typically not required. Neutrophils # (Auto) February 11, 2014 7:43am 6.1 T/MM3 N 1.8-7.7 Neutrophils # (Manual) September 29, 2013 7:56pm 7.6 T/MM3 N 1.8-7.7 COMMENT CALL LERNER IF ABNORMAL Neutrophils % (Manual) September 29, 2013 7:56pm 75.0 % H 33-66 COMMENT CALL LERNER IF ABNORMAL Neutrophils (%) (Auto) February 11, 2014 7:43am 72.7 % H 33-66 Oxygen Delivery Method (LAB) June 04, 2013 4:05pm Room air - Platelet Count February 11, 2014 7:43am 171 T/MM3 N 130-400 Platelet Function - Aspirin [...] 11, 2014 7:43am 4.1 MEQ/L N 3.6-5 Procalcitonin June 04, 2013 4:25pm < 0.05 NG/ML - PCT </=0.5 ng/ mL - sepsis not likely;PCT >0.5 and </=2 ng/mL - sepsis possible; PCT >2 ng/mL - sepsis likely; PCT >/=10 ng/mL - systemic inflammatory response - sepsis or septic shock highly indicated. Prothromb Time International Ratio February 11, 2014 7:43am 1.64 H 0.81- 1.09 THERAPUTIC RANGE=2.00-3.00 FOR ANTI-THROMBOSIS THERAPUTIC RANGE=2.50- 3.50 FOR IMPLANTED VALVE RDW Standard Deviation February 11, 2014 7:43am 49.4 FL N 36.9-50.2 Reactive Lymphocytes # September 29, 2013 12:30am 0.4 T/MM3 H 0-0 Reactive Lymphocytes % September 29, 2013 12:30am 3.0 % H 0-0 Red Blood Count February 11, 2014 7:43am 4.84 M/MM3 N 4.50-5.90 Sodium Level February 11, 2014 7:43am 139 MEQ/L N 134-144 Thyroid Stimulating Hormone (TSH) February 11, 2014 7:43am 2.47 MIU/L DN 0.47-4.68 Total Bilirubin February 11, 2014 7:43am 0.60 MG/DL N 0.20-1.30 Total Protein February 11, 2014 7:43am 6.7 G/DL N 6.3-8.2 Troponin I February 11, 2014 7:43am 0.030 ng/ml N 0-0.12 Turbidity February 11, 2014 7:43am < 20 0-20 Unconjugated Bilirubin March 15, [...] Has specimen been collected/obtained? Y Urine Specific [place] February 11, 2014 8:25am >=1.030 H - [...] 04, 2013 4:25pm 1.9 MMOL/L N 0.6-2.2 Vitamin B12 Level January 01, 2014 4:34am 689 PG/ML N 239-931 White Blood Count February 11, 2014 7:43am 8.3 T/MM3 N 4.5-11.0 Blood Culture Blood June 04, 2013 4:25pm NO GROWTH AFTER 5 DAYS Gram Stain Knee, Intraoperative Site-Left December 21, 2008 9:51am Name: EDMUNDO FONSECA Unit #: [id number] : 1935 Sex: M Loc / Svc: ED DOS: 02/11/14 Signed Report #: [id number] DIAGNOSTIC IMAGING REPORT TYPE OF EXAM: CHEST 1 VIEW Dictated By: LEN HANNAH MD INDICATION: ITS.REASON: dyspnea CHEST 1 VIEW: Comparison: December 31, 2013 Findings: Lungs are stable in appearance. Postoperative changes of prior CABG. No focal pneumonia or congestive failure. Heart size and mediastinal contours are stable. Impression: Stable chest without acute cardiopulmonary disease. . Procedures Procedure Status Date Provider(s) ECHO EXAMINATION PROCEDURE completed 12/29/13 ADRIANNA KEITA MD Encounters Encounter Location Date/Time Registered Emergency Room [facility] 02/11/14 7:13am Departed Clinic [facility] 02/05/14 11:53am Discharged Inpatient [facility] 12/29/13 7:41am Recent Diagnosis
--- OUTSIDE RECORDS SUMMARY | 2016-07-09 20:40 | XMS REPORT | Referral Summary ---
Author Author [facility] Organization [facility] Address Unknown Phone Unavailable Care Team Providers Care Product Representative Name Role Phone Wilmar Wilcox Primary Care Physician [phone] Encounter Date(s): 05/09/16 - 05/09/16 [facility] [address] [place] [phone] Discharge Diagnosis: Mixed hyperlipidemia Discharge Diagnosis: Afib Discharge Diagnosis: Right hip pain Discharge Diagnosis: 3-vessel CAD Discharge Diagnosis: Benign essential HTN Discharge Disposition: 01-Home or Self Care Attending Physician: Niraj Wilcox MD Admitting Physician: Niraj Wilcox MD Vital Signs Most recent to 1 oldest [Reference Range]: Temperature Tympanic 36.2 degC [36.6-38.1 degC] *LOW* (05/09/16 8:49 AM) Peripheral Pulse 80 bpm Rate [60-100 bpm] (05/09/16 8:49 AM) Respiratory Rate 20 br/min [14-20 br/min] (05/09/16 8:49 AM) Blood Pressure 124/64 mmHg [90-140/60-90 mmHg] (05/09/16 8:49 AM) Problem List Condition Effective Dates Status [...] Refill(s) Start Date: 05/09/16 Status: Ordered Vitamin B12 Oral, Daily, 0 Refill(s) Start Date: 05/09/16 Status: Ordered Vitamin B6 100 mg oral tablet mg tabs, Oral, Daily, 0 Refill(s) Start Date: 05/09/16 Status: Ordered Results No data available for this section Immunizations No data available for this section Procedures No data available for this section Social History Social History Type Response Smoking Status Former smoker; Type: Cigarettes; Date Last Use: 1955 Assessment and Plan Extracted from: Title: Office Visit Note Author: Niraj Wilcox MD Date: 05/09/16 Assessment/Plan 1.Right hip pain We will do an x-ray today and see what that shows. I think it's likely he 'll need to see an orthopedic surgeonmore than likely has significant arthritic changes. We'll see what the x-ray shows and make further recommendations. Ordered: Office Visit [place] 3 [place] [id number] XR Hip w Pelvis when perform 2-3 vws RT 2.3-vessel CAD Overall this appears to bechronic but stable. 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 He has had recent evaluation as mentioned above. Medications reviewed and no changes are recommended at this time. Ordered: CBC w/ Differential Comprehensive Metabolic Panel Lipid Panel Office Visit Level 3 New [id number] PT 3.Benign essential HTN Blood pressure appears to be adequately controlled no change in current treatment is recommended. Laboratory studies will be ordered. Ordered: CBC w/ Differential Comprehensive Metabolic Panel Lipid Panel Office Visit Level 3 New [id number] 4.Afib He is on chronic anticoagulation therapy. His rhythm actually sounded fairly regular today. We will check INR along with other laboratory studies. No change in current treatment at this time. Ordered: CBC w/ Differential Comprehensive Metabolic Panel Lipid Panel Office Visit Level 3 New [id number] PT 5.Mixed hyperlipidemia Labstudies ordered no change in current treatment recommended. Ordered: Comprehensive Metabolic Panel Lipid Panel Office Visit Level 3 New [id number]
--- OUTSIDE RECORDS SUMMARY | 2016-07-09 20:40 | XMS REPORT | Continuity of Care Document ---
Author Author [facility] L[facility] Organization [facility] LIVE Address Unknown Phone Unavailable Support Name Relationship Address Phone FREDA LERNER II, MD Caregiver [address] [place] [phone] JUAN DAVID PIZANO MD Caregiver [address] [place] [id number] SILVIO FONSECA I Next Of Kin [phone] [place] [address] Insurance Providers Payer Name Policy Number Subscriber Name Relationship Medicare [id number] Edmundo Fonseca 18 Self [facility] [id number] Edmundo Fonseca 18 Self Advance Directives Directive Response Recorded Date/Time Advanced Directives Type None 09/29/13 3:38am Ordered Resuscitation Status Full Code 09/29/13 2:41am Problems Medical Problems Problem Onset Date Status [...] Mg PO DAILY 06/03/09 03/15/10 Discontinued Fish Oil/[place]-3 Fatty Acids 1 Cap PO DAILY 06/02/09 [...] 02/05/14 Active Metoprolol Tartrate 50 Mg PO DAILY Take 1 tablet, by mouth, 2 times a day with meals. 02/11/14 Active Furosemide 20 Mg PO DAILY 30 Qty 05/19/14 Active Mirtazapine 15 Mg PO BEDTIME 06/02/14 Active Social History Social History Problem Response Recorded Date/Time Chewing Tobacco Status No 09/29/2013 12:35am Hx Substance Use No 06/02/2014 10:10am Hx Alcohol Use No 06/02/2014 10:10am Has the pt used tobacco in the last 12 months No 05/19/2014 11:56am Tobacco Usage none 09/24/2013 9:00am Query Response Start Date Stop Date Smoking Status Former smoker Hospital Discharge Instructions No hospital discharge instructions. Plan of Care No plan of care. Functional Status Query Response Date Recorded Physical Hygiene Self June 02, 2014 10:10am Disabilities Hearing Visual September 30, 2013 5:43pm Devices Used Glasses September 30, 2013 5:43pm Dressing Self September 30, 2013 5:43pm Ambulation Self September 30, 2013 5:43pm Diet Self September 30, 2013 5:43pm Mental Status Alert Oriented September 30, 2013 5:43pm Disabilities Hearing Visual September 30, 2013 5:43pm Devices Used Glasses September 30, 2013 5:43pm Physical Hygiene Self June 02, 2014 10:10am Dressing Self September 30, 2013 5:43pm Ambulation Self September 30, 2013 5:43pm Diet Self September 30, 2013 5:43pm Allergies, Adverse Reactions, Alerts Allergen Type Severity Reaction Status Last Updated Sulfa (Sulfonamide Antibiotics) Allergy Unknown UNKNOWN Active 06/02/14 Meprobamate Allergy Unknown PER H&P Active 06/02/14 Morphine Adverse Reaction Unknown HALLUCINATIONS Active 06/02/14 Carisoprodol Allergy Severe UNRESPONSIVE Active 06/02/14 Immunizations Name Given Type Hx Influenza Vaccination Y DEC 2013 Historical Hx Pneumococcal Vaccination Y April 2013 Historical Hx Influenza Vaccination Y DEC 2013 Historical Vital Signs Acute Vital Signs Vital Response Date/Time Temperature (Fahrenheit) 98.2 deg F (96.8 - 99.1) Temperature (Calculated Celsius) 36.24534 degrees C (36.0 - 37.3) Pulse Rate (adult) 38 bpm (60 - 100) Respiratory Rate 15 breaths/min (10 - 20) O2 Sat by Pulse Oximetry 99 % (90 - 100) Oxygen Flow Rate 2 L/min Blood Pressure 158/80 mm Hg Height 5 ft 8 in Weight 204 lb Body Mass Index 31.0 kg/m^2 Results Test Source Date Result Interp. Ref. Range Comments Activated Partial Thromboplast Time June 02, 2014 10:10am 42.1 SEC H 24-36 Alanine Aminotransferase (ALT/SGPT) June 02, 2014 10:10am 45 U/L N 21-72 Albumin June 02, 2014 10:10am 4.5 G/DL N 3.5-5.0 Albumin/Globulin Ratio June 02, 2014 10:10am 1.6 RATIO N 1.1-2.2 Alkaline Phosphatase June 02, 2014 10:10am 89 U/L N 38-126 Anion Gap June 02, 2014 10:10am 14 MEQ/L N 5-15 Arterial Blood Base Excess [...] L 80 -100 Aspartate Amino Transf (AST/SGOT) June 02, 2014 10:10am 46 U/L N 17- 59 BUN/Creatinine Ratio June 02, 2014 10:10am 25 RATIO N 6-26 Band Neutrophils # September 29, 2013 7:56pm 0.9 T/MM3 - COMMENT CALL LERNER IF ABNORMAL Band Neutrophils % September 29, 2013 7:56pm 9.0 % H 0-6 COMMENT CALL LERNER IF ABNORMAL Basophils # (Auto) June 02, 2014 10:10am 0.0 T/MM3 N 0-0.2 Basophils # (Manual) September 29, 2013 7:56pm 0.0 T/MM3 N 0-0.2 COMMENT CALL LERNER IF ABNORMAL Basophils % (Manual) September 29, 2013 7:56pm 0.0 % N 0-2 COMMENT CALL LERNER IF ABNORMAL Basophils (%) (Auto) June 02, 2014 10:10am 0.4 % N 0-2 Blood Urea Nitrogen June 02, 2014 10:10am 30.0 MG/DL H 9-20 C-Reactive Protein December 30, 2013 6:08am 177.4 MG/L H 0-9 Calcium Level June 02, 2014 10:10am 9.8 MG/DL N 8.4-10.2 Calculated Osmolality June 02, 2014 10:10am 283 MOSM/KG H 261-280 Carbon Dioxide Level June 02, 2014 10:10am 30 MEQ/L N 22-30 Chemistry Specimen Hemolysis June 02, 2014 10:10am 19 N 0-25 0-25: No Hemolysis.26-70: Slight Hemolysis - [...] decrease Phenytoin. Recommend specimen recollection. Chloride Level June 02, 2014 10:10am 100 MEQ/L N 98-107 Conjugated Bilirubin March 15, 2012 9:15am 0.00 MG/DL N 0.00-0.30 Creatine Kinase MB January 01, 2014 4:34am 1.4 NG/ML N 0-3.4 Creatinine June 02, 2014 10:10am 1.2 MG/DL N 0.8-1.5 EKG December 21, 2008 7:30am Complete - Eosinophils # (Auto) June 02, 2014 10:10am 0.1 T/MM3 N 0-0.5 Eosinophils # (Manual) September 29, 2013 7:56pm 0.0 T/MM3 N 0-0.5 COMMENT CALL LERNER IF ABNORMAL Eosinophils % (Manual) September 29, 2013 7:56pm 0.0 % N 0-4 COMMENT CALL LERNER IF ABNORMAL Eosinophils (%) (Auto) June 02, 2014 10:10am 0.5 % N 0-4 Erythrocyte Sedimentation Rate December 30, 2013 6:08am 60 MM/HR H 0- 15 Folate January 01, 2014 4:34am > 20.0 NG/ML H 2.76-20 NORMAL ADULT RANGE: 2.76->20 ng/mL Globulin June 02, 2014 10:10am 2.9 G/DL N 2.4-3.6 Glomerular Filtration Rate Calc June 02, 2014 10:10am 58 - Glucose Level June 02, 2014 10:10am 102 MG/DL N 75-110 Hematocrit June 02, 2014 10:10am 44.4 % N 41-53 Hemoglobin June 02, 2014 10:10am 14.4 GM/DL N 13.5-17.5 Icterus Index June 02, 2014 10:10am < 2 0-7 Immature Granulocyte # (Auto) June 02, 2014 10:10am 0.01 T/MM3 N 0.00-0.03 Immature Granulocyte % (Auto) June 02, 2014 10:10am 0.1 % N 0.0-0.5 Influenza Type A Antigen June 04, 2013 5:10pm Negative - Negative for Flu A protein antigen. Assay sensitivity is90%. Influenza Type B Antigen June 04, 2013 5:10pm Negative - Negative for Flu B protein antigen. Assay sensitivity is90%. Lymphocytes # (Auto) June 02, 2014 10:10am 1.5 T/MM3 N 1-4.8 Lymphocytes # (Manual) September 29, 2013 7:56pm 1.4 T/MM3 N 1-4.8 COMMENT CALL LERNER IF ABNORMAL Lymphocytes % (Manual) September 29, 2013 7:56pm 14.0 % L 23-45 COMMENT CALL LERNER IF ABNORMAL Lymphocytes (%) (Auto) June 02, 2014 10:10am 14.8 % L 23-45 Magnesium Level June 02, 2014 10:10am 2.2 MG/DL N 1.6-2.3 Mean Corpuscular Hemoglobin June 02, 2014 10:10am 29.1 UUG N 26-34 Mean Corpuscular Hemoglobin Concent June 02, 2014 10:10am 32.4 GM/DL N 31-37 Mean Corpuscular Volume June 02, 2014 10:10am 89.7 UM3 N 80-100 Mean Platelet Volume June 02, 2014 10:10am 10.4 UM3 N 9.4-12.4 Monocytes # (Auto) June 02, 2014 10:10am 1.0 T/MM3 H 0-0.8 Monocytes # (Manual) September 29, 2013 7:56pm 0.2 T/MM3 N 0-0.8 COMMENT CALL LERNER IF ABNORMAL Monocytes % (Manual) September 29, 2013 7:56pm 2.0 % N 0-9.0 COMMENT CALL LERNER IF ABNORMAL Monocytes (%) (Auto) June 02, 2014 10:10am 9.6 % H 0-9.0 XC-Siv-T-Type Natriuretic Peptide June 02, 2014 10:10am 5130 PG/ML H 0-175 Rule in cut points: <50 years old=450; 50-75 years old=900; >75 years old=1800; When utilizing ProBNP rule-in cut points, adjustment for impaired renal function is typically not required. Neutrophils # (Auto) June 02, 2014 10:10am 7.6 T/MM3 N 1.8-7.7 Neutrophils # (Manual) September 29, 2013 7:56pm 7.6 T/MM3 N 1.8-7.7 COMMENT CALL LERNER IF ABNORMAL Neutrophils % (Manual) September 29, 2013 7:56pm 75.0 % H 33-66 COMMENT CALL LERNER IF ABNORMAL Neutrophils (%) (Auto) June 02, 2014 10:10am 74.6 % H 33-66 Oxygen Delivery Method (LAB) June 04, 2013 4:05pm Room air - Platelet Count June 02, 2014 10:10am 204 T/MM3 N 130-400 Platelet Function - Aspirin [...] use with inherited platelet disorders. Potassium Level June 02, 2014 10:10am 4.1 MEQ/L N 3.6-5 Procalcitonin June 04, 2013 4:25pm < 0.05 NG/ML - PCT </=0.5 ng/ mL - sepsis not likely;PCT >0.5 and </=2 ng/mL - sepsis possible; PCT >2 ng/mL - sepsis likely; PCT >/=10 ng/mL - systemic inflammatory response - sepsis or septic shock highly indicated. Prothromb Time International Ratio June 02, 2014 10:10am 2.63 H 0.81 -1.09 THERAPUTIC RANGE=2.00-3.00 FOR ANTI-THROMBOSIS THERAPUTIC RANGE=2.50- 3.50 FOR IMPLANTED VALVE RDW Standard Deviation June 02, 2014 10:10am 45.6 FL N 36.9-50.2 Reactive Lymphocytes # September 29, 2013 12:30am 0.4 T/MM3 H 0-0 Reactive Lymphocytes % September 29, 2013 12:30am 3.0 % H 0-0 Red Blood Count June 02, 2014 10:10am 4.95 M/MM3 N 4.50-5.90 Sodium Level June 02, 2014 10:10am 144 MEQ/L N 134-144 Thyroid Stimulating Hormone (TSH) June 02, 2014 10:10am 2.34 MIU/L N 0.47-4.68 Total Bilirubin June 02, 2014 10:10am 1.00 MG/DL N 0.20-1.30 Total Protein June 02, 2014 10:10am 7.4 G/DL N 6.3-8.2 Troponin I June 02, 2014 10:10am 0.090 ng/ml N 0-0.12 Turbidity June 02, 2014 10:10am < 20 0-20 Unconjugated Bilirubin March 15, [...] Has specimen been collected/obtained? Y Urine Specific [place] February 11, 2014 8:25am >=1.030 H - [...] 689 PG/ML N 239-931 White Blood Count June 02, 2014 10:10am 10.2 T/MM3 N 4.5-11.0 Blood Culture Blood June 04, 2013 4:25pm NO GROWTH AFTER 5 DAYS Gram Stain Knee, Intraoperative Site-Left December 21, 2008 9:51am Name: EDMUNDO FONSECA Monique Unit #: [id number] : 1935 Sex: M Loc / Svc: ED DOS: 06/02/14 Signed Report #: [id number] DIAGNOSTIC IMAGING REPORT TYPE OF EXAM: CHEST 1 VIEW Dictated By: LEN HANNAH MD Indication: ITS.REASON: weakness CHEST 1 VIEW: Comparison: February 11, 2014 Findings: Post sternotomy changes are again noted. The lungs are stable. Prominent aortic knob is redemonstrated without interval change. No pneumothorax or effusion. Cardiac silhouette remains moderately enlarged. Mediastinal contours and pulmonary vascularity are stable. Impression: Stable appearance of the chest without pneumonia or congestive failure. . Procedures Procedure Status Date Provider(s) COLONOSCOPY W/LESION REMOVAL completed 05/20/14 SOFI ORTIZ MD COLONOSCOPY W/LESION REMOVAL completed 05/20/14 SOFI ORTIZ MD PROPOFOL INJ 500 MG/50ML completed 05/20/14 [id number]"RINGERS LACTATE INFUSION, UP TO 1000 CC" completed 05/20/14 Encounters Encounter Location Date/Time Departed Emergency Room [facility] 06/02/14 9:51am Recent Diagnosis
--- OUTSIDE RECORDS SUMMARY | 2016-07-09 20:40 | XMS REPORT | Continuity of Care Document ---
Author Author [facility] Organization [facility] Address Unknown Phone Unavailable Support Name Relationship Address Phone FREDA LERNER II, MD Caregiver [address] [place] [phone] JUAN DAVID PIZANO MD Caregiver [address] [place] [address] SILVIO FONSECA I Next Of Kin [address] [place] [address] Insurance Providers Payer Name Policy Number Subscriber Name Relationship Medicare [id number] Edmundo Fonseca 18 Self [facility] [id number] Edmundo Fonseca 18 Self Advance Directives Directive Response Recorded Date/Time Advanced Directives Type None 09/29/13 3:38am Ordered Resuscitation Status Full Code 09/29/13 2:41am Chief Complaint and Reason for Visit Chief Complaint ALTERED MENTAL STATUS Reason for Visit Back spasm Altered mental status Back spasm Problems Medical Problems Problem Onset Date Status Bradycardia Unknown Active Pneumonia Unknown Active Back spasm Unknown Active Back spasm Unknown Active Back spasm Unknown Active Altered mental status Unknown Active Back spasm Unknown Active Medications Medication Dose Route Sig Days/Qty Instructions Order Date Discontinued Date Status Allopurinol 300 Mg PO DAILY 06/03/09 Active Metoprolol Succinate 25 Mg PO TWICE A DAY 06/03/09 Active Finasteride 5 Mg PO DAILY 06/03/09 Active Ezetimibe 10 Mg PO DAILY 06/03/09 06/04/13 Discontinued Rosuvastatin Calcium 10 Mg PO BEDTIME 06/03/09 05/09/13 Discontinued Zolpidem Tartrate 12.5 Mg PO BEDTIME 06/03/09 03/15/10 Discontinued Aspirin 81 Mg PO BEDTIME 06/02/09 Active Irbesartan/Hydrochlorothiazide 1 Tab PO BEDTIME 06/03/09 03/15/10 Discontinued Pyridoxine Hcl 50 Mg PO DAILY 06/03/09 Active Folic Acid 0.8 Mg PO DAILY 06/03/09 03/15/10 Discontinued Fish Oil/[place]-3 Fatty Acids 1 Cap PO DAILY 06/02/09 [...] 03/15/12 Discontinued Folic Acid 400 Mg PO DAILY 03/15/12 Active Cyanocobalamin/Folic Acid 1 Each PO DAILY 03/15/12 06/04/13 Discontinued Losartan/Hydrochlorothiazide 1 Each PO DAILY 03/15/12 06/04/13 Discontinued Atorvastatin Calcium 40 Mg PO DAILY 05/09/13 Active Simvastatin 40 Mg PO DAILY 05/09/13 06/04/13 Discontinued Doxylamine Succinate 25 Mg PO BEDTIME 05/09/13 06/04/13 Discontinued Ubidecarenone 100 Mg PO DAILY 05/09/13 09/29/13 Discontinued Famotidine 20 Mg PO DAILY 06/04/13 Active Zolpidem Tartrate 12.5 Mg PO BEDTIME 09/23/13 Active Cyclobenzaprine Hcl 10 Mg PO Every 8 Hours PRN PAIN &/OR SPASM 20 Qty 09/23/13 09/30/13 Discontinued Ibuprofen 3 Tab PO Every 8 Hours 5 Days 09/23/13 Active Ubidecarenone 200 Mg PO DAILY 09/29/13 Active Hydrocodone Bit/Acetaminophen 1 Tab PO ONE TO THREE TIMES A DAY 09/2909/30/13 Discontinued Tramadol Hcl 50 Mg PO Q6H/0300,0900,1500,2100 PRN PAIN 21 Days Active Social History Social History Problem Response Recorded Date/Time Smoking Status Former smoker 09/29/2013 3:38am Chewing Tobacco Status No 09/29/2013 12:35am Hx Substance Use No 09/29/2013 12:35am Hx Alcohol Use No 09/29/2013 12:35am Has the pt used tobacco in the last 12 months No 09/29/2013 3:38am Query Response Start Date Stop Date Smoking Status Never smoker Hospital Discharge Instructions Instructions: Care Instructions: Reason for Hospitalization: CONFUSION, BACK PAIN, UNSTABLE GAIT I was in the hospital because (patient own words): "I GOT TO THE PLACE WHERE THINGS WEREN'T MAKING SENSE" Follow Up Appointments: MAKE FOLLOW UP APPOINTMENT WITH IN 1 WEEK Condition at time of discharge: Good Care Plan Discharge Patient: Patient Instructions: see patient instructions Problem: see problem list Keep insisions covered with current dressing. Keep wounds dry. Durable Medical Equipment: PATIENT HAS A WALKER AND WHEELCHAIR, NO OTHER EQUIPMENT NEEDS IDENTIFIED AT THIS TIME. Condition at time of discharge: Good Care Plan Discharge Patient: Patient Instructions: see patient instructions Problem: see problem list rate >100, confusion, or persistent nausea/vomitting. 2.Severe pain, swelling, redness, or warmth in either of your legs. 3.During office hours, call [phone] 4. After hours, please call [facility] at [phone], and have the drying tumbler operator page your Surgeon IN THE EVENT OF AN EMERGENCY, seek medical care at the nearest Emergency Room New Scripts Called to Pharmacy: asa ec 325 mg daily,celebrex 200 mg bid,colace 100mg daily,neurontin 300 mg bid,theragan H 1 DAILY,ROXICODONE 5 MG 5-15mg q 3 hr prn pain,oxycontin 10mg q 12hrs for pain Condition at time of discharge: Good Care Plan Discharge Patient: Patient Instructions: see patient instructions Problem: see problem list see problem list Plan of Care Discharge Date 09/30/13 6:35pm Disposition 01 DISCHARGED HOME, SELF-CARE Instructions/Education Provided DI for Altered Mental Status Prescriptions See Medications Section Functional Status Query Response Date Recorded Physical Hygiene Self September 30, 2013 5:43pm Disabilities Hearing Visual September 30, 2013 5:43pm Devices Used Glasses September 30, 2013 5:43pm Dressing Self September 30, 2013 5:43pm Ambulation Self September 30, 2013 5:43pm Diet Self September 30, 2013 5:43pm Mental Status Alert Oriented September 30, 2013 5:43pm Disabilities Hearing Visual September 30, 2013 5:43pm Devices Used Glasses September 30, 2013 5:43pm Physical Hygiene Self September 30, 2013 5:43pm Dressing Self September 30, 2013 5:43pm Ambulation Self September 30, 2013 5:43pm Diet Self September 30, 2013 5:43pm Allergies, Adverse Reactions, Alerts Allergen Type Severity Reaction Status Last Updated Sulfa (Sulfonamide Antibiotics) Allergy Unknown Active 09/28/13 Carisoprodol Allergy Severe UNRESPONSIVE Active 09/28/13 Immunizations Name Given Type Hx Influenza Vaccination Y November 2012 Historical Hx Pneumococcal Vaccination Y April 2013 Historical Hx Influenza Vaccination Y November 2012 Historical Vital Signs Acute Vital Signs Vital Response Date/Time Temperature (Fahrenheit) 98.2 deg F (96.8 - 99.1) Temperature (Calculated Celsius) 36.70519 degrees C (36.0 - 37.3) Temperature Source Temporal Pulse Rate (adult) 71 bpm (60 - 100) Respiratory Rate 20 breaths/min (10 - 20) O2 Sat by Pulse Oximetry 99 % (90 - 100) Blood Pressure 112/65 mm Hg Blood Pressure Source Automatic Cuff Blood Pressure 112/65 mm Hg Height 5 ft 9 in Weight 196 lb Body Mass Index 29.0 kg/m^2 Results Test Source Date Result Interp. Ref. Range Comments Activated Partial Thromboplast Time March 15, 2012 9:15am 30.1 SEC N 24-36 Alanine Aminotransferase (ALT/SGPT) September 29, 2013 12:30am 12 U/L L 21- 72 Albumin September 29, 2013 12:30am 4.3 G/DL N 3.5-5.0 Albumin/Globulin Ratio September 29, 2013 12:30am 1.3 RATIO N 1.1-2.2 Alkaline Phosphatase September 29, 2013 12:30am 102 U/L N 38-126 Anion Gap September 29, 2013 12:30am 12 MEQ/L N 5-15 Arterial Blood Base Excess [...] 7.500 H 7.350-7.450 Aspartate Amino Transf (AST/SGOT) September 29, 2013 12:30am 22 U/L N 17-59 BUN/Creatinine Ratio September 29, 2013 12:30am 21 RATIO N 6-26 Band Neutrophils # September 29, 2013 7:56pm 0.9 T/MM3 - COMMENT CALL LERNER IF ABNORMAL Band Neutrophils % September 29, 2013 7:56pm 9.0 % H 0-6 COMMENT CALL LERNER IF ABNORMAL Basophils # (Auto) June 06, 2013 4:26am 0.0 T/MM3 N 0-0.2 Basophils # (Manual) September 29, 2013 7:56pm 0.0 T/MM3 N 0-0.2 COMMENT CALL LERNER IF ABNORMAL Basophils % (Manual) September 29, 2013 7:56pm 0.0 % N 0-2 COMMENT CALL LERNER IF ABNORMAL Basophils (%) (Auto) June 06, 2013 4:26am 0.2 % N 0-2 Blood Urea Nitrogen September 29, 2013 12:30am 23.0 MG/DL H 9-20 Calcium Level September 29, 2013 12:30am 9.4 MG/DL N 8.4-10.2 Calculated Osmolality September 29, 2013 12:30am 265 MOSM/KG N 261-280 Carbon Dioxide Level September 29, 2013 12:30am 29 MEQ/L N 22-30 Chloride Level September 29, 2013 12:30am 94 MEQ/L L 98-107 Conjugated Bilirubin March 15, 2012 9:15am 0.00 MG/DL N 0.00-0.30 Creatinine September 29, 2013 12:30am 1.1 MG/DL N 0.8-1.5 Eosinophils # (Auto) June 06, 2013 4:26am 0.0 T/MM3 N 0-0.5 Eosinophils # (Manual) September 29, 2013 7:56pm 0.0 T/MM3 N 0-0.5 COMMENT CALL LERNER IF ABNORMAL Eosinophils % (Manual) September 29, 2013 7:56pm 0.0 % N 0-4 COMMENT CALL LERNER IF ABNORMAL Eosinophils (%) (Auto) June 06, 2013 4:26am 0.3 % N 0-4 Globulin September 29, 2013 12:30am 3.3 G/DL N 2.4-3.6 Glucose Level September 29, 2013 12:30am 108 MG/DL N 75-110 Hematocrit September 29, 2013 7:56pm 40.6 % L 41-53 COMMENT CALL LERNER IF ABNORMAL Hemoglobin September 29, 2013 7:56pm 12.9 GM/DL L 13.5-17.5 COMMENT CALL LERNER IF ABNORMAL Influenza Type A Antigen June 04, 2013 5:10pm Negative - Negative for Flu A protein antigen. Assay sensitivity is90%. Influenza Type B Antigen June 04, 2013 5:10pm Negative - Negative for Flu B protein antigen. Assay sensitivity is90%. Lymphocytes # (Auto) June 06, 2013 4:26am 1.0 T/MM3 N 1-4.8 Lymphocytes # (Manual) September 29, 2013 7:56pm 1.4 T/MM3 N 1-4.8 COMMENT CALL LERNER IF ABNORMAL Lymphocytes % (Manual) September 29, 2013 7:56pm 14.0 % L 23-45 COMMENT CALL LERNER IF ABNORMAL Lymphocytes (%) (Auto) June 06, 2013 4:26am 10.5 % L 23-45 Magnesium Level September 29, 2013 12:30am 2.2 MG/DL N 1.6-2.3 Mean Corpuscular Hemoglobin September 29, 2013 7:56pm 25.6 UUG L 26-34 COMMENT CALL LERNER IF ABNORMAL Mean Corpuscular Hemoglobin Concent September 29, 2013 7:56pm 31.8 GM/DL N 31 -37 COMMENT CALL LERNER IF ABNORMAL Mean Corpuscular Volume September 29, 2013 7:56pm 80.7 UM3 N 80-100 COMMENT CALL LERNER IF ABNORMAL Mean Platelet Volume September 29, 2013 7:56pm 9.0 UM3 L 9.4-12.4 COMMENT CALL LERNER IF ABNORMAL Monocytes # (Auto) June 06, 2013 4:26am 1.4 T/MM3 H 0-0.8 Monocytes # (Manual) September 29, 2013 7:56pm 0.2 T/MM3 N 0-0.8 COMMENT CALL LERNER IF ABNORMAL Monocytes % (Manual) September 29, 2013 7:56pm 2.0 % N 0-9.0 COMMENT CALL LERNER IF ABNORMAL Monocytes (%) (Auto) June 06, 2013 4:26am 14.4 % H 0-9.0 Neutrophils # (Auto) June 06, 2013 4:26am 7.2 T/MM3 N 1.8-7.7 Neutrophils # (Manual) September 29, 2013 7:56pm 7.6 T/MM3 N 1.8-7.7 COMMENT CALL LERNER IF ABNORMAL Neutrophils % (Manual) September 29, 2013 7:56pm 75.0 % H 33-66 COMMENT CALL LERNER IF ABNORMAL Neutrophils (%) (Auto) June 06, 2013 4:26am 74.4 % H 33-66 Platelet Count September 29, 2013 7:56pm 217 T/MM3 N 130-400 COMMENT CALL LERNER IF ABNORMAL Platelet Function Assay March 16, 2010 8:48am 0 % - P2Y1 WAS DRAWN 0940--- 03/16/10 1001 --- PI previously reported as: 0 % <20% inhibition: recommended pre-surgical level. >20% inhibition: indicates anti-platelet effect. NOTE: Test not reliable with NSAID use or low platelet counts. Not for use with inherited platelet disorders. Potassium Level September 29, 2013 12:30am 4.6 MEQ/L N 3.6-5 Prothromb Time International Ratio March 15, 2012 9:15am 1.05 N 0.86- 1.10 THERAPUTIC RANGE=2.00-3.00 FOR ANTI-THROMBOSIS THERAPUTIC RANGE=2.50- 3.50 FOR IMPLANTED VALVE RDW Standard Deviation September 29, 2013 7:56pm 50.3 FL H 36.9-50.2 COMMENT CALL LERNER IF ABNORMAL Red Blood Count September 29, 2013 7:56pm 5.03 M/MM3 N 4.50-5.90 COMMENT CALL LERNER IF ABNORMAL Sodium Level September 29, 2013 12:30am 135 MEQ/L N 134-144 Thyroid Stimulating Hormone (TSH) September 29, 2013 12:30am 4.89 MIU/L H 0.47-4.68 Total Bilirubin September 29, 2013 12:30am 1.20 MG/DL N 0.20-1.30 Total Protein September 29, 2013 12:30am 7.6 G/DL N 6.3-8.2 Troponin I September 29, 2013 12:30am 0.030 ng/ml N 0-0.12 Unconjugated Bilirubin March 15, 2012 9:15am 0.80 MG/DL N 0.00-1.10 Urine Bacteria September 30, 2013 6:14am None seen - Has specimen been collected/obtained? Y Urine Bilirubin September 30, 2013 6:14am Negative - Has specimen been collected/obtained? Y Urine Blood September 30, 2013 6:14am 1+ H - Has specimen been collected/ obtained? Y Urine Collection Type September 30, 2013 6:14am Cleancatch-midstream - Has specimen been collected/obtained? Y Urine Color September 30, 2013 6:14am Yellow - Has specimen been collected /obtained? Y Urine Glucose (UA) September 30, 2013 6:14am Negative - Has specimen been collected/obtained? Y Urine Ketones September 30, 2013 6:14am Negative - Has specimen been collected/obtained? Y Urine Leukocyte Esterase September 30, 2013 6:14am Negative - Has specimen been collected/obtained? Y Urine Mucus September 29, 2013 1:58am Present - Has specimen been collected/obtained? Y Urine Nitrite September 30, 2013 6:14am Negative - Has specimen been collected/obtained? Y Urine Protein September 30, 2013 6:14am Negative - Has specimen been collected/obtained? Y Urine RBC September 30, 2013 6:14am 3-5 /HPF H - Has specimen been collected /obtained? Y Urine Specific [place] September 30, 2013 6:14am >=1.030 H - Has specimen been collected/obtained? Y Urine Squamous Epithelial Cells September 30, 2013 6:14am 0-5 - Has specimen been collected/obtained? Y Urine Turbidity September 30, 2013 6:14am Clear - Has specimen been collected/obtained? Y Urine Urobilinogen September 30, 2013 6:14am 0.2 EU/DL - Has specimen been collected/obtained? Y Urine WBC September 30, 2013 6:14am 1-3 /HPF - Has specimen been collected /obtained? Y Urine pH September 30, 2013 6:14am 5.0 - Has specimen been collected/ obtained? Y White Blood Count September 29, 2013 7:56pm 10.1 T/MM3 N 4.5-11.0 COMMENT CALL LERNER IF ABNORMAL Chemistry Specimen Hemolysis September 29, 2013 12:30am < 15 0-25 0-25: No Hemolysis.26-70: Slight [...] December 21, 2008 7:30am Complete - Turbidity September 29, 2013 12:30am < 20 0-20 Platelet Function - Aspirin [...] % H 0-0 Glomerular Filtration Rate Calc September 29, 2013 12:30am 65 - Reactive Lymphocytes # September 29, 2013 12:30am 0.4 T/MM3 H 0-0 Immature Granulocyte # (Auto) June 06, 2013 4:26am 0.02 T/MM3 N 0.00 -0.03 Immature Granulocyte % (Auto) June 06, 2013 4:26am 0.2 % N 0.0-0.5 Arterial Blood pO2 [...] or septic shock highly indicated. Icterus Index September 29, 2013 12:30am < 2 0-7 BC-Sed-S-Type Natriuretic Peptide September 29, 2013 12:30am 1310 PG/ML H 0- 175 Rule in cut points: <50 years old=450; 50-75 years old=900; >75 years old=1800; When utilizing ProBNP rule-in cut points, adjustment for impaired renal function is typically not required. Blood Culture Blood June 04, 2013 4:25pm NO GROWTH AFTER 5 DAYS Gram Stain Knee, Intraoperative Site-Left December 21, 2008 9:51am Procedures No known history of procedures. Encounters Encounter Location Date/Time Discharged Inpatient [facility] 09/29/13 2:41am Departed Emergency Room [facility] 09/23/13 12:56pm Recent Diagnosis Back spasm Altered mental status Back spasm
--- NOTE | 2016-07-09 21:08 | NUR ---
WAITING ROOM PT AMBULATES TO WAITING ROOM AT THIS TIME ACCOMPANIED BY FAMILY TO AWAIT ROOM PLACEMENT. NO S/S OF DISTRESS, NO COMPLAINTS.
--- OUTSIDE RECORDS SUMMARY | 2016-07-09 22:01 | XMS REPORT | Continuity of Care Document ---
Demographics Preferred Language Unknown Marital Status Unknown Jainism Affiliation Unknown Race Unknown Ethnic Group Unknown Author Author [facility] Organization [facility] Address Unknown Phone Unavailable Allergies Medications Medication [...] Procedures Code [place] [address] Office or other outpatient visit for the evaluation and management of a new patient, which requires RUY MULLINS MD 09/13/2015 24946 Office or other outpatient visit for the evaluation and management of a new patient, which requires RUY MULLINS MD 09/15/2015 70651 Office or other outpatient visit for the evaluation and management of an established patient, which RUY MULLINS MD 11/07/2015 26351 Office or other outpatient visit for the evaluation and management of an established patient, which RUY MULLINS MD 12/02/2015 81388 Office or other outpatient visit for the evaluation and management of an established patient, which RUY MULLINS MD 12/20/2015 Results Encounters ACCT No. Visit Date/Time Discharge Status Pt. Type Provider Facility Loc./Unit Complaint [id number] 09/13/2015 17:47:09 Document Registration
--- OUTSIDE RECORDS SUMMARY | 2016-07-09 22:01 | XMS REPORT | Continuity of Care Document ---
Author Author [facility] Organization [facility] Address Unknown Phone Unavailable Support Name Relationship Address Phone FREDA LERNER II, MD Caregiver [address] [place] [address] [place] [phone] SOFI ORTIZ MD Caregiver [address] [place] [address] [place] [phone] SILVIO FONSECA I Next Of Kin [address] [place] [address] Insurance Providers Payer Name Policy Number Subscriber Name Relationship Medicare [id number] Edmundo Fonseca 18 Self [facility] [id number] Edmundo Fonseca 18 Self Advance Directives Directive [...] Mg PO DAILY 06/03/09 03/15/10 Discontinued Fish Oil/[place]-3 Fatty Acids 1 Cap PO DAILY 06/02/09 [...] F (96.8 - 99.1) Temperature (Calculated Celsius) 35.21057 degrees C (36.0 - 37.3) Temperature Source [...] Has specimen been collected/obtained? Y Urine Specific [place] February 11, 2014 8:25am >=1.030 H - [...] February 11, 2014 7:43am < 2 0-7 KP-Wok-X-Type Natriuretic Peptide February 11, 2014 7:43am 3910 [...]
--- OUTSIDE RECORDS SUMMARY | 2016-07-09 22:01 | XMS REPORT | Continuity of Care Document ---
Author Author [facility] Organization [facility] Address Unknown Phone Unavailable Support Name Relationship Address Phone ADRIANNA KEITA MD Caregiver [facility] [address] [place] [address] FREDA LERNER II, MD Caregiver [address] [place] [address] [phone] SILVIO FONSECA I Next Of Kin [address] [place] [address] Insurance Providers Payer Name Policy Number Subscriber Name Relationship Medicare [id number] Edmundo Fonseca 18 Self [facility] [id number] Edmundo Fonseca 18 Self Advance Directives Directive [...] Mg PO DAILY 06/03/09 03/15/10 Discontinued Fish Oil/[place]-3 Fatty Acids 1 Cap PO DAILY 06/02/09 [...] Up Appointments: Dr Lerner , AT 11:15am ([phone]) Dr Schneider FEBRUARY 04 AT 12:50pm ([phone]) Patient Instructions: back stretching BID Durable Medical [...] of your legs. 3.During office hours, call [phone] 4. After hours, please call [facility] at [phone], and have the lens molding equipment operator page your Surgeon IN THE EVENT OF AN EMERGENCY, seek medical care at the nearest Emergency Room Condition at time of discharge: Good Care Plan Discharge Patient: Goal: Understand discharge plan Patient Instructions: see patient instructions Plan of Care Discharge Date 01/04/14 2:24pm Disposition 02 TO [facility] Condition at Discharge Improved Instructions/Education [...] F (96.8 - 99.1) Temperature (Calculated Celsius) 36.74734 degrees C (36.0 - 37.3) Temperature Source [...] Has specimen been collected/obtained? Y Urine Specific [place] December 29, 2013 5:46am >=1.030 H - [...] January 04, 2014 4:22am < 2 0-7 GR-Ymf-M-Type Natriuretic Peptide September 29, 2013 12:30am 1310 [...] 2008 9:51am Name: EDMUNDO FONSECA Unit #: [id number] : 1935 Sex: M Loc / Svc: MED DOS: 12/29/13 Signed Report #: [id number] DIAGNOSTIC IMAGING REPORT TYPE OF EXAM: CHEST, [...] MD Encounters Encounter Location Date/Time Departed Clinic [facility] 02/05/14 11:53am Discharged Inpatient [facility] 12/29/13 7:41am
--- OUTSIDE RECORDS SUMMARY | 2016-07-09 22:01 | XMS REPORT | Continuity of Care Document ---
Author Author [facility] Organization [facility] Address Unknown Phone Unavailable Support Name Relationship Address Phone FREDA LERNER II, MD Caregiver [address] [facility] [address] [place] [phone] JEN ANDREW MD Caregiver [address] [place] [phone] SILVIO FONSECA I Next Of Kin [address] [place] [address] Insurance Providers Payer Name Policy Number Subscriber Name Relationship Medicare [id number] Edmundo Fonseca 18 Self [facility] [id number] Edmundo Fonseca 18 Self Advance Directives Directive [...] Mg PO DAILY 06/03/09 03/15/10 Discontinued Fish Oil/[place]-3 Fatty Acids 1 Cap PO DAILY 06/02/09 [...] Up Appointments: Dr Lerner , AT 11:15am ([phone]) Dr Schneider FEBRUARY 04 AT 12:50pm ([phone]) Patient Instructions: back stretching BID Durable Medical [...] F (96.8 - 99.1) Temperature (Calculated Celsius) 36.60553 degrees C (36.0 - 37.3) Temperature Source [...] 02, 2014 4:50am 11.1 % H 0-9.0 ZC-Voa-S-Type Natriuretic Peptide September 29, 2013 12:30am 1310 [...] Has specimen been collected/obtained? Y Urine Specific [place] December 29, 2013 5:46am >=1.030 H - [...] 2008 9:51am Name: EDMUNDO FONSECA Unit #: [id number] : 1935 Sex: M Loc / Svc: MED DOS: 12/29/13 Signed Report #: [id number] DIAGNOSTIC IMAGING REPORT TYPE OF EXAM: CHEST, [...] procedures. Encounters Encounter Location Date/Time Discharged Inpatient [facility] 12/29/13 7:41am Recent Diagnosis Bradycardia Pneumonia Altered mental status Back spasm New onset atrial fibrillation Volume depletion New onset atrial fibrillation
--- OUTSIDE RECORDS SUMMARY | 2016-07-09 22:01 | XMS REPORT | Continuity of Care Document ---
Author Author [facility] Organization [facility] Address Unknown Phone Unavailable Support Name Relationship Address Phone MILAGROS KEYS MD Caregiver [address] [place] [address] FREDA LERNER II, MD Caregiver [address] [facility] [address] [address] [place] [phone] SILVIO FONSECA I Next Of Kin [address] [place] [address] Insurance Providers Payer Name Policy Number Subscriber Name Relationship Medicare [id number] Edmundo Fonseca 18 Self [facility] [id number] Edmundo Fonseca 18 Self Advance Directives Directive [...] Mg PO DAILY 06/03/09 03/15/10 Discontinued Fish Oil/[place]-3 Fatty Acids 1 Cap PO DAILY 06/02/09 [...] Up Appointments: Dr Lerner , AT 11:15am ([phone]) Dr Schneider FEBRUARY 04 AT 12:50pm ([phone]) Patient Instructions: back stretching BID Durable Medical Equipment: Pt needs a cane Condition at time of discharge: Good Plan of Care Discharge Date 01/04/14 2:24pm Disposition 02 TO [facility] Condition at Discharge Improved Instructions/Education [...] F (96.8 - 99.1) Temperature (Calculated Celsius) 36.07085 degrees C (36.0 - 37.3) Pulse Rate [...] 11, 2014 7:43am 11.5 % H 0-9.0 YA-Ptd-W-Type Natriuretic Peptide February 11, 2014 7:43am 3910 [...] Has specimen been collected/obtained? Y Urine Specific [place] February 11, 2014 8:25am >=1.030 H - [...] 2008 9:51am Name: EDMUNDO FONSECA Unit #: [id number] : 1935 Sex: M Loc / Svc: ED DOS: 02/11/14 Signed Report #: [id number] DIAGNOSTIC IMAGING REPORT TYPE OF EXAM: CHEST [...] Encounters Encounter Location Date/Time Registered Emergency Room [facility] 02/11/14 7:13am Departed Clinic [facility] 02/05/14 11:53am Discharged Inpatient [facility] 12/29/13 7:41am Recent Diagnosis
--- OUTSIDE RECORDS SUMMARY | 2016-07-09 22:02 | XMS REPORT | Continuity of Care Document ---
Author Author Ihsan [facility] LIVE Organization [facility] LIVE Address Unknown Phone Unavailable Support Name Relationship Address Phone FREDA LERNER II, MD Caregiver [address] [place] [phone] JUAN DAVID PIZANO MD Caregiver [address] [place] [id number] SILVIO FONSECA I Next Of Kin [address] [place] [address] Insurance Providers Payer Name Policy Number Subscriber Name Relationship Medicare [id number] Edmundo Fonseca 18 Self [facility] [id number] Edmundo Fonseca 18 Self Advance Directives Directive [...] Mg PO DAILY 06/03/09 03/15/10 Discontinued Fish Oil/[place]-3 Fatty Acids 1 Cap PO DAILY 06/02/09 [...] F (96.8 - 99.1) Temperature (Calculated Celsius) 36.85415 degrees C (36.0 - 37.3) Pulse Rate [...] 02, 2014 10:10am 9.6 % H 0-9.0 DS-Wfk-J-Type Natriuretic Peptide June 02, 2014 10:10am 5130 [...] Has specimen been collected/obtained? Y Urine Specific [place] February 11, 2014 8:25am >=1.030 H - [...] 9:51am Name: EDMUNDO FONSECA Monique Unit #: [id number] : 1935 Sex: M Loc / Svc: ED DOS: 06/02/14 Signed Report #: [id number] DIAGNOSTIC IMAGING REPORT TYPE OF EXAM: CHEST [...] MD PROPOFOL INJ 500 MG/50ML completed 05/20/14 [id number]"RINGERS LACTATE INFUSION, UP TO 1000 CC" completed 05/20/14 Encounters Encounter Location Date/Time Departed Emergency Room [facility] 06/02/14 9:51am Recent Diagnosis
--- OUTSIDE RECORDS SUMMARY | 2016-07-09 22:02 | XMS REPORT | Continuity of Care Document ---
Author Author Ihsan [facility] LIVE Organization [facility] LIVE Address Unknown Phone Unavailable Support Name Relationship Address Phone FREDA LERNER II, MD Caregiver [address] [place] [phone] JUAN DAVID PIZANO MD Caregiver [address] [place] [address] SILVIO FONSECA I Next Of Kin [address] [place] [address] Insurance Providers Payer Name Policy Number Subscriber Name Relationship Medicare [id number] Edmundo Fonseca [address] [facility] [id number] Edmundo Fonseca 18 Self Advance Directives Directive [...] Mg PO DAILY 06/03/09 03/15/10 Discontinued Fish Oil/[place]-3 Fatty Acids 1 Cap PO DAILY 06/02/09 [...] of your legs. 3.During office hours, call [phone] 4. After hours, please call [facility] at [phone], and have the turbogenerator operator page your Surgeon IN THE EVENT [...] F (96.8 - 99.1) Temperature (Calculated Celsius) 36.50663 degrees C (36.0 - 37.3) Temperature Source [...] specimen been collected /obtained? Y Urine Specific [place] September 30, 2013 6:14am >=1.030 H - [...] September 29, 2013 12:30am < 2 0-7 QQ-Pib-R-Type Natriuretic Peptide September 29, 2013 12:30am 1310 [...] procedures. Encounters Encounter Location Date/Time Discharged Inpatient [facility] 09/29/13 2:41am Departed Emergency Room [facility] 09/23/13 12:56pm Recent Diagnosis Back spasm Altered mental status Back spasm
[2016-07-09 22:34] LABS: BASOPHILS % (AUTO) 0.4 % (0-2); EOSINOPHILS # (AUTO) 0.4 T/MM3 (0-0.5); EOSINOPHILS % (AUTO) 4.6 % (0-4); HCT - HEMATOCRIT 30.5 % (41-53); HGB - HEMOGLOBIN 10.1 GM/DL (13.5-17.5); IMMATURE GRANULOCYTE # (AUTO) 0.04 T/MM3 (0.00-0.03); IMMATURE GRANULOCYTE % (AUTO) 0.4 % (0.0-0.5); LYMPHOCYTES # (AUTO) 1.5 T/MM3 (1-4.8); LYMPHOCYTES % (AUTO) 16.1 % (23-45); MEAN CORPUSCULAR HGB 31.7 UUG (26-34); MEAN CORPUSCULAR HGB CONC(MCHC 33.1 GM/DL (31-37); MEAN CORPUSCULAR VOLUME 95.6 UM3 (80-100); MEAN PLATELET VOLUME 9.5 UM3 (9.4-12.4); MONOCYTES # (AUTO) 0.8 T/MM3 (0-0.8); MONOCYTES % (AUTO) 8.1 % (0-9.0); NEUTROPHILS #(AUTO)-ABSOLUTE 6.6 T/MM3 (1.8-7.7); NEUTROPHILS % (AUTO) 70.4 % (33-66); RED BLOOD COUNT 3.19 M/MM3 (4.50-5.90); WBC - WHITE BLOOD COUNT 9.4 T/MM3 (4.5-11.0)
[2016-07-09 22:43] LABS: ALBUMIN 4.1 G/DL (3.5-5.0); ALBUMIN/GLOBULIN RATIO 1.4 RATIO (1.1-2.2); ALKALINE PHOSPHATASE 64 U/L (38-126); ALT (SGPT) 37 U/L (21-72); ANION GAP 14 MEQ/L (5-15); AST (SGOT) 27 U/L (17-59); BUN/CREATININE RATIO 26 RATIO (6-26); CALCIUM 9.6 MG/DL (8.4-10.2); CHLORIDE 103 MEQ/L (98-107); CO2 - CARBON DIOXIDE 22 MEQ/L (22-30); CREATININE 3.6 MG/DL (0.8-1.5); GLOMERULAR FILTRATION RATE 16; GLUCOSE 134 MG/DL (75-110); POTASSIUM 5.5 MEQ/L (3.6-5); SODIUM 139 MEQ/L (134-144)
[2016-07-09 22:57] LABS: BLOOD, URINE NEGATIVE (NEGATIVE); COLOR,URINE YELLOW (YELLOW); LEUKOCYTE ESTERASE ,URINE NEGATIVE (NEGATIVE); NITRITE,URINE NEGATIVE (NEGATIVE); UROBILINOGEN,URINE 0.2 EU/DL (NORMAL)
[2016-07-09] MEDS ORDERED: NORMAL SALINE 1,000 ML IV SCH (23:05)
--- NOTE | 2016-07-09 23:05 | ERPDOC ---
Departure Disposition Decision Date: Jul 09, 2016 Disposition Decision Time: 23:18 Disposition: 02 TO [facility] Impression Impression Impression: Primary Impression: Acute renal failure Severity: Moderate Condition: Stable Seen By: Physician only Referrals: BIJAL ATWOOD MD (Family) Problems/Meds/Labs Reviewed?: Yes Medications reviewed and manag: Yes Follow up care ordered?: Yes Mental Status: Alert, Oriented [facility] - General Medical General Chief Complaint: Acute Medical Problem Stated Complaint: CRITICAL LAB RESULTS Time Seen by Provider: 21:39 [facility] - General Medical Initial Comments 81-year-old gentleman sent in for lab follow-up. He was told his potassium was 6.5 and creatinine was 3.5 on a routine blood draw today. He has felt "cruddy" with a headache and some body aches for about 2 months now. Has a history of coronary artery disease and atrial fibrillation after having a coronary bypass in 2004.No hx of renal insufficiency or elevated potassium. Allergies: Coded Allergies: carisoprodol (Verified Allergy, Severe, UNRESPONSIVE, 07/09/16) Sulfa (Sulfonamide Antibiotics) (Verified Allergy, Unknown, UNKNOWN, ) morphine (Verified Adverse Reaction, Unknown, HALLUCINATIONS, 07/09/16) Past History Past Medical History Metabolic: gout, hypercholesterolemia, hypertension, other ENMT: sleep apnea Cardiac: A-fib, CAD GI: GERD, ulcers Male: BPH, kidney stones Musculoskeletal: back pain, osteoarthritis Psychological: depression Surgical History General: appendix, back, other, tonsils Cardiac: cardiac bypass, cardiac stent Joint: carpal tunnel, elbow, knee Family History Family PMH: FOUND: CAD Vaccines Hx Influenza Vaccination: Yes (DEC 2013) Hx Pneumococcal Vaccination: Yes (April 2013) Social History Smoking Status: Never smoker Substance Use Type: does not use Sexuality: female partner Record Review Pertinent history updated: Yes Review of Systems Cardiovascular Cardiac: see HPI GI Upper Abdomen: see HPI Musculoskeletal General: see HPI All other Systems All Other Systems: Reviewed and Negative Physical Exam General General Nourishment: well nourished, well developed, appears stated age, no acute distress General Body Habitus: well groomed Vitals and Pain First Documented Vital Signs Date Time Temp Pulse Resp B/P Pulse Ox O2 Delivery O2 Flow Rate FiO2 07/09/16 20:54 98.5 68 16 96/54 99 Room Air Weight: Kilograms: 89.600 Height (feet): 5 Height (inches): 8.00 Triage Pain Scale: Normal Exams: Head: Normocephalic w/o trauma Eyes: Pupils are PERRLA w/ EOMI, No scleral icterus, irritation, or foreign bodies noted Neck: Full range of motion, without adenopathy, JVD, bruits or thyromegaly Chest/Resp: Clear all benson, with good airflow, and symmetry bilaterally CV: Regular rate and rhythm, without murmur or gallop, Pulses 2+ all extremities, capillary refill, <2 seconds all ext., no pedal edema noted Abdomen: Bowel sounds positive, soft, non-tender, non-distended, no hepatosplenomegaly, masses or bruits noted Neurologic: Patient is alert, and oriented, cranial nerves, motor/sensory/ cerebellar, exams w/o gross deficits, to observation Psychiatric: Patient exhibits, appropriate attention, emotion and affect Differential Diagnoses Considering: Depression, Hypo/Hyperkalemia, Hypo/Hypernatremia, Medication Effect, Metabolic, UTI Progress Results/Orders Orders Procedure Category Date Status Time Cbc W/Auto LAB 07/09/16 Complete Diff-Reflex Manual Cmp - Comprehensive LAB 07/09/16 Complete Metabolic Ua, Dip Wreflex LAB 07/09/16 Complete [employer] Writer 22:04 Probnp LAB 07/09/16 Complete 23:00 Place In Facility: ED ADM 07/09/16 Transmitted Normal Saline (Ns) PHA 07/09/16 Complete 23:15 Normal Saline (Normal PHA 07/09/16 In Process Saline Iv) 23:15 Ambulate CARLI 07/09/16 In Process 23:05 Telemetry [facility] 07/09/16 In Process 23:05 Regular Diet DIET 07/10/16 Transmitted Breakfast Normal Saline (Normal PHA 07/09/16 Complete Saline Iv) 23:05 Ondansetron Inj PHA 07/09/16 In Process (Zofran) 23:15 Cbc W/Auto LAB 07/10/16 Complete Diff-Reflex Manual 04:00 Bmp - Basic Metabolic LAB 07/10/16 Complete Panel 04:00 Magnesium LAB 07/10/16 Complete 04:00 Phosphorus LAB 07/10/16 Complete 04:00 Lab Results Laboratory Tests Test 07/09/16 22:17 07/09/16 22:48 White Blood Count 9.4T/MM3 Red Blood Count 3.19M/MM3 Hemoglobin 10.1GM/DL Hematocrit 30.5% Mean Corpuscular Volume 95.6UM3 Mean Corpuscular Hemoglobin 31.7UUG Mean Corpuscular Hemoglobin Concent 33.1GM/DL RDW Standard Deviation 48.6FL Platelet Count 188T/MM3 Mean Platelet Volume 9.5UM3 Immature Granulocyte % (Auto) 0.4% Neutrophils (%) (Auto) 70.4% Lymphocytes (%) (Auto) 16.1% Monocytes (%) (Auto) 8.1% Eosinophils (%) (Auto) 4.6% Basophils (%) (Auto) 0.4% Absolute Immature Granulocyte (auto 0.04T/MM3 Absolute Neutrophils (auto) 6.6T/MM3 Absolute Lymphocytes (auto) 1.5T/MM3 Absolute Monocytes (auto) 0.8T/MM3 Absolute Eosinophils (auto) 0.4T/MM3 Absolute Basophils (auto) 0.0T/MM3 Turbidity < 20 Sodium Level 139MEQ/L Potassium Level 5.5MEQ/L Chloride Level 103MEQ/L Carbon Dioxide Level 22MEQ/L Anion Gap 14MEQ/L Blood Urea Nitrogen 95.0MG/DL Creatinine 3.6MG/DL Glomerular Filtration Rate Calc 16 BUN/Creatinine Ratio 26RATIO Glucose Level 134MG/DL Calculated Osmolality 299MOSM/KG Calcium Level 9.6MG/DL Total Bilirubin 0.80MG/DL Icterus Index < 2 Aspartate Amino Transf (AST/SGOT) 27U/L Alanine Aminotransferase (ALT/SGPT) 37U/L Alkaline Phosphatase 64U/L BQ-Afj-U-Type Natriuretic Peptide 3610PG/ML Total Protein 7.0G/DL Albumin 4.1G/DL Globulin 2.9G/DL Albumin/Globulin Ratio 1.4RATIO Chemistry Specimen Hemolysis < 15 Urine Collection Type Voided-not cc-midstr Urine Color Yellow Urine Turbidity Clear Urine pH 5.0 Urine Specific [place] 1.020 Urine Protein Negative Urine Glucose (UA) Negative Urine Ketones Negative Urine Blood Negative Urine Nitrite Negative Urine Bilirubin Negative Urine Urobilinogen 0.2EU/DL Urine Leukocyte Esterase Negative Urinalysis Comment Microscopic not ind. Medications Current ED Medications Sodium Chloride (Normal Saline IV) 1,000 ml @ 125 mls/hr Q8H IV ; Start at 23:05; Stop 07/10/16 at 02:01; Status DC Progress Progress Labs drawn initially as likelihood of rbc rupture inflating Kt value. However, Kt 5.5, Creat 3.5, No obvious cause. He is on lasix 40mg bid, but has been chronically on this for some time. Called and spoke with hospitalist, who agreed with admit, hydrate and reeval in am. MOHSEN ANAND MD Jul 09, 2016 23:05
[2016-07-09] MEDS ORDERED: NORMAL SALINE 500 ML IV ONE (23:15)
[2016-07-09] MEDS ORDERED: ONDANSETRON 4mg/2ml INJECTION IV PRN (23:15)
--- OUTSIDE RECORDS SUMMARY | 2016-07-09 23:22 | XMS REPORT | Continuity of Care Document ---
Author Author [facility] LIVE Organization [facility] LIVE Address Unknown Phone Unavailable Support Name Relationship Address Phone ADRIANNA KEITA MD Caregiver [facility] [address] [place] [address] FREDA LERNER II, MD Caregiver [address] [place] [address] [phone] SILVIO FONSECA I Next Of Kin [address] [place] [address] Insurance Providers Payer Name Policy Number Subscriber Name Relationship Medicare [id number] Edmundo Fonseca 18 Self [facility] [id number] Edmundo Fonseca 18 Self Advance Directives Directive [...] Mg PO DAILY 06/03/09 03/15/10 Discontinued Fish Oil/[place]-3 Fatty Acids 1 Cap PO DAILY 06/02/09 [...] Up Appointments: Dr Lerner , AT 11:15am ([phone]) Dr Schneider FEBRUARY 04 AT 12:50pm ([phone]) Patient Instructions: back stretching BID Durable Medical [...] of your legs. 3.During office hours, call [phone] 4. After hours, please call [facility] at [phone], and have the loop drier operator page your Surgeon IN THE EVENT OF AN EMERGENCY, seek medical care at the nearest Emergency Room Condition at time of discharge: Good Care Plan Discharge Patient: Goal: Understand discharge plan Patient Instructions: see patient instructions Plan of Care Discharge Date 01/04/14 2:24pm Disposition 02 TO [facility] Condition at Discharge Improved Instructions/Education [...] F (96.8 - 99.1) Temperature (Calculated Celsius) 36.42762 degrees C (36.0 - 37.3) Temperature Source [...] Has specimen been collected/obtained? Y Urine Specific [place] December 29, 2013 5:46am >=1.030 H - [...] January 04, 2014 4:22am < 2 0-7 BX-Hij-E-Type Natriuretic Peptide September 29, 2013 12:30am 1310 [...] 2008 9:51am Name: EDMUNDO FONSECA Unit #: [id number] : 1935 Sex: M Loc / Svc: MED DOS: 12/29/13 Signed Report #: [id number] DIAGNOSTIC IMAGING REPORT TYPE OF EXAM: CHEST, [...] Provider(s) ECHO EXAMINATION PROCEDURE completed 12/29/13 ADRIANNA EKITA MD Encounters Encounter Location Date/Time Departed Clinic [facility] 02/05/14 11:53am Discharged Inpatient [facility] 12/29/13 7:41am
--- OUTSIDE RECORDS SUMMARY | 2016-07-09 23:22 | XMS REPORT | Continuity of Care Document ---
Demographics Preferred Language Unknown Marital Status Unknown Anabaptism Affiliation Unknown Race Unknown Ethnic Group Unknown Author Author [facility] Organization [facility] Address Unknown Phone Unavailable Allergies Medications Medication [...] Procedures Code [place] [address] Office or other outpatient visit for the evaluation and management of a new patient, which requires RUY MULLINS MD 09/13/2015 56649 Office or other outpatient visit for the evaluation and management of a new patient, which requires RUY MULLINS MD 09/15/2015 15279 Office or other outpatient visit for the evaluation and management of an established patient, which RUY MULLINS MD 11/07/2015 61769 Office or other outpatient visit for the evaluation and management of an established patient, which RUY MULLINS MD 12/02/2015 42358 Office or other outpatient visit for the evaluation and management of an established patient, which RUY MULLINS MD 12/20/2015 Results Encounters ACCT No. Visit Date/Time Discharge Status Pt. Type Provider Facility Loc./Unit Complaint [id number] 09/13/2015 17:47:09 Document Registration
--- OUTSIDE RECORDS SUMMARY | 2016-07-09 23:22 | XMS REPORT | Continuity of Care Document ---
Author Author [facility] LIVE Organization [facility] LIVE Address Unknown Phone Unavailable Support Name Relationship Address Phone FREDA LERNER II, MD Caregiver [address] [place] [phone] JEN ANDREW MD Caregiver [address] [place] [phone] SILVIO FONSECA I Next Of Kin [address] [place] [address] Insurance Providers Payer Name Policy Number Subscriber Name Relationship Medicare [id number] Edmundo Fonseca 18 Self [facility] [id number] Edmundo Fonseca 18 Self Advance Directives Directive [...] Mg PO DAILY 06/03/09 03/15/10 Discontinued Fish Oil/[place]-3 Fatty Acids 1 Cap PO DAILY [...] Up Appointments: Dr Lerner , AT 11:15am ([phone]) Dr Schneider FEBRUARY 04 AT 12:50pm ([phone]) Patient Instructions: back stretching BID Durable Medical [...] F (96.8 - 99.1) Temperature (Calculated Celsius) 36.30366 degrees C (36.0 - 37.3) Temperature Source [...] 02, 2014 4:50am 11.1 % H 0-9.0 YY-Bil-J-Type Natriuretic Peptide September 29, 2013 12:30am 1310 [...] Has specimen been collected/obtained? Y Urine Specific [place] December 29, 2013 5:46am >=1.030 H - [...] 2008 9:51am Name: EDMUNDO FONSECA Unit #: [id number] : 1935 Sex: M Loc / Svc: MED DOS: 12/29/13 Signed Report #: [id number] DIAGNOSTIC IMAGING REPORT TYPE OF EXAM: CHEST, [...] procedures. Encounters Encounter Location Date/Time Discharged Inpatient [facility] 12/29/13 7:41am Recent Diagnosis Bradycardia Pneumonia Altered mental status Back spasm New onset atrial fibrillation Volume depletion New onset atrial fibrillation
--- OUTSIDE RECORDS SUMMARY | 2016-07-09 23:23 | XMS REPORT | Continuity of Care Document ---
Author Author Ihsan [facility] LIVE Organization [facility] LIVE Address Unknown Phone Unavailable Support Name Relationship Address Phone FREDA LERNER II, MD Caregiver [address] [place] [phone] JUAN DAVID PIZANO MD Caregiver [address] [place] [address] SILVIO FONSECA I Next Of Kin [address] [place] [address] Insurance Providers Payer Name Policy Number Subscriber Name Relationship Medicare [id number] Edmundo Fonseca 18 Self [facility] [id number] Edmundo Fonseca 18 Self Advance Directives Directive [...] Mg PO DAILY 06/03/09 03/15/10 Discontinued Fish Oil/[place]-3 Fatty Acids 1 Cap PO DAILY 06/02/09 [...] of your legs. 3.During office hours, call [phone] 4. After hours, please call [facility] at [phone], and have the tubing machine operator page your Surgeon IN THE [...] F (96.8 - 99.1) Temperature (Calculated Celsius) 36.32176 degrees C (36.0 - 37.3) Temperature Source [...] specimen been collected /obtained? Y Urine Specific [place] September 30, 2013 6:14am >=1.030 H - [...] September 29, 2013 12:30am < 2 0-7 ZV-Bbj-O-Type Natriuretic Peptide September 29, 2013 12:30am 1310 [...] procedures. Encounters Encounter Location Date/Time Discharged Inpatient [facility] 09/29/13 2:41am Departed Emergency Room [facility] 09/23/13 12:56pm Recent Diagnosis Back spasm Altered mental status Back spasm
--- OUTSIDE RECORDS SUMMARY | 2016-07-09 23:23 | XMS REPORT | Continuity of Care Document ---
Author Author Ihsan [facility] LIVE Organization [facility] LIVE Address Unknown Phone Unavailable Support Name Relationship Address Phone FREDA LERNER II, MD Caregiver [address] [place] [phone] JUAN DAVID PIZANO MD Caregiver [address] [place] [id number] SILVIO FONSECA I Next Of Kin [address] [place] [address] Insurance Providers Payer Name Policy Number Subscriber Name Relationship Medicare [id number] Edmundo Fonseca 18 Self [facility] [id number] Edmundo Fonseca 18 Self Advance Directives Directive [...] Mg PO DAILY 06/03/09 03/15/10 Discontinued Fish Oil/[place]-3 Fatty Acids 1 Cap PO DAILY 06/02/09 [...] F (96.8 - 99.1) Temperature (Calculated Celsius) 36.66026 degrees C (36.0 - 37.3) Pulse Rate [...] 02, 2014 10:10am 9.6 % H 0-9.0 HF-Dzf-Z-Type Natriuretic Peptide June 02, 2014 10:10am 5130 [...] Has specimen been collected/obtained? Y Urine Specific [place] February 11, 2014 8:25am >=1.030 H - [...] 9:51am Name: EDMUNDO FONSECA Monique Unit #: [id number] : 1935 Sex: M Loc / Svc: ED DOS: 06/02/14 Signed Report #: [id number] DIAGNOSTIC IMAGING REPORT TYPE OF EXAM: CHEST [...] MD PROPOFOL INJ 500 MG/50ML completed 05/20/14 [id number]"RINGERS LACTATE INFUSION, UP TO 1000 CC" completed 05/20/14 Encounters Encounter Location Date/Time Departed Emergency Room [facility] 06/02/14 9:51am Recent Diagnosis
--- OUTSIDE RECORDS SUMMARY | 2016-07-09 23:23 | XMS REPORT | Continuity of Care Document ---
Author Author [facility] LIVE Organization [facility] LIVE Address Unknown Phone Unavailable Support Name Relationship Address Phone FREDA LERNER II, MD Caregiver [address] [place] [address] [place] [phone] SOFI ORTIZ MD Caregiver [address] [place] [address] [place] [phone] SILVIO FONSECA I Next Of Kin [address] [place] [address] Insurance Providers Payer Name Policy Number Subscriber Name Relationship Medicare [id number] Edmundo Fonseca 18 Self [facility] [id number] Edmundo Fonseca 18 Self Advance Directives Directive [...] Mg PO DAILY 06/03/09 03/15/10 Discontinued Fish Oil/[place]-3 Fatty Acids 1 Cap PO DAILY 06/02/09 [...] F (96.8 - 99.1) Temperature (Calculated Celsius) 35.36884 degrees C (36.0 - 37.3) Temperature Source [...] Has specimen been collected/obtained? Y Urine Specific [place] February 11, 2014 8:25am >=1.030 H - [...] February 11, 2014 7:43am < 2 0-7 YP-Vnm-Z-Type Natriuretic Peptide February 11, 2014 7:43am 3910 [...]
--- OUTSIDE RECORDS SUMMARY | 2016-07-09 23:23 | XMS REPORT | Continuity of Care Document ---
Author Author [facility] LIVE Organization [facility] LIVE Address Unknown Phone Unavailable Support Name Relationship Address Phone MILAGROS KEYS MD Caregiver [address] [place] [address] FREDA LERNER II, MD Caregiver [address] [place] [phone] SILVIO FONSECA I Next Of Kin [address] [place] [address] Insurance Providers Payer Name Policy Number Subscriber Name Relationship Medicare [id number] Edmundo Fonseca 18 Self [facility] [id number] Edmundo Fonseca 18 Self Advance Directives Directive [...] Mg PO DAILY 06/03/09 03/15/10 Discontinued Fish Oil/[place]-3 Fatty Acids 1 Cap PO DAILY 06/02/09 [...] Up Appointments: Dr Lerner , AT 11:15am ([phone]) Dr Schneider FEBRUARY 04 AT 12:50pm ([phone]) Patient Instructions: back stretching BID Durable Medical Equipment: Pt needs a cane Condition at time of discharge: Good Plan of Care Discharge Date 01/04/14 2:24pm Disposition 02 TO [facility] Condition at Discharge Improved Instructions/Education [...] F (96.8 - 99.1) Temperature (Calculated Celsius) 36.23398 degrees C (36.0 - 37.3) Pulse Rate [...] 11, 2014 7:43am 11.5 % H 0-9.0 AT-Bpu-U-Type Natriuretic Peptide February 11, 2014 7:43am 3910 [...] Has specimen been collected/obtained? Y Urine Specific [place] February 11, 2014 8:25am >=1.030 H - [...] 2008 9:51am Name: EDMUNDO FONSECA Unit #: [id number] : 1935 Sex: M Loc / Svc: ED DOS: 02/11/14 Signed Report #: [id number] DIAGNOSTIC IMAGING REPORT TYPE OF EXAM: CHEST [...] Encounters Encounter Location Date/Time Registered Emergency Room [facility] 02/11/14 7:13am Departed Clinic [facility] 02/05/14 11:53am Discharged Inpatient [facility] 12/29/13 7:41am Recent Diagnosis
[2016-07-09] MEDS ORDERED: LISI10TA7 PO (23:29)
[2016-07-09] MEDS ORDERED: ASPI-557 PO (23:29)
[2016-07-09] MEDS ORDERED: CARV6.252 PO (23:29)
[2016-07-09] MEDS ORDERED: POTA10TA10 PO (23:29)
[2016-07-09] MEDS ORDERED: ZOLP5TAB2 PO (23:30)
[2016-07-10] VITALS (7 sets, daily range): BP systolic 81–122; BP diastolic 46–69; PULSE 59–71; RESP 16; TEMP 97.7–98; O2SAT 95–99; Ht 172.7 cm; Wt 90.1 kg
--- NOTE | 2016-07-10 00:08 | NUR ---
Admission 81 yo male arrived to Room 149 via wheelchair accompanied by RN from ED. Pt. alert, oriented x3. States received call from MD today regarding abnormal lab and was directed to come to hospital.
--- NOTE | 2016-07-10 00:08 | NUR ---
TRANSFER TO [facility] VIA W/C
--- NOTE | 2016-07-10 00:30 | NUR ---
Pt. assessed and spoke with tele-hospitalist Yahir Horne. Meds and IVF orders reviewed, no new orders.
--- NOTE | 2016-07-10 01:00 | NUR ---
Meds Pt. did not take Ambien or Lipitor prior to admission. Given on admission - see eMAR.
--- NOTE | 2016-07-10 01:04 | HPPDOC ---
JOHNATHAN HERNANDEZ MD 07/10/16 0007: HPI - Adult Date DATE: 07/10/16 TIME: 00:06 General Chief Complaint: Abnormal lab values History of Present Illness 81 yo M with PMH of A. Fib and CAD presented to the ED per his PCP's request for abnormal lab values. He was told his potassium was 6.5 and creatinine was 3.5 on a routine blood draw today. He has felt "cruddy" with a headache and some body aches for about 2 months now. Has a history of coronary artery disease and atrial fibrillation after having a coronary bypass in 2004. He denies CP, SOA, abdominal pain and changes in bowel habits or black stools. He reports a decreased appetite and a 10 lbs weight loss in the past 2 months. Patient was admitted for IVF, further evaluation and treatment. Past Medical History Past Medical History a. fib CAD Current Medications Home Meds Reported Medications Pyridoxine HCl (Pyridoxine HCl) 100 Mg Tablet, 100 MG PO WL, TAB 07/10/16 Zolpidem Tartrate (Ambien) 5 Mg Tablet, 5 MG PO HS, TAB Take 1 tablet, by mouth, 1 time a day (at BEDTIME). 07/09/16 Aspirin (Aspir 81) 81 Mg Tablet.dr, 1 TAB PO DAILY, #30 TAB 5 Refills 07/09/16 Carvedilol (Carvedilol) 6.25 Mg Tablet, 1 TAB PO BIDWM, TAB BEST WITH FOOD. 07/09/16 Potassium Chloride (Klor-Con 10) 10 Meq Tablet.er, 1 TAB PO BID 07/09/16 Lisinopril (Lisinopril) 10 Mg Tablet, 10 MG PO DAILY for HYPERTENSION, TAB 07/09/16 Warfarin Sodium (Warfarin Sodium) 4 Mg Tablet, 4 MG PO 1700, TAB Take 1 tablet, by mouth, 1 time a day (at 5 pm). 03/02/15 Furosemide (Furosemide) 20 Mg Tablet, 20 MG PO DAILY, #30 05/19/14 Atorvastatin Calcium (Atorvastatin Calcium) 40 Mg Tablet, 1 TAB PO DAILY, TAB 02/05/14 Ubidecarenone (Co Q-10) 200 Mg Capsule, 200 MG PO DAILY 09/29/13 Famotidine (Famotidine) 20 Mg Tablet, 20 MG PO DAILY, TAB 0 Refills 06/04/13 Folic Acid (Folic Acid) 0.8 Mg Tablet, 400 MCG PO WL, 0 Refills 03/15/12 Finasteride (Finasteride) 5 Mg Tablet, 5 MG PO DAILY, 0 Refills 06/03/09 Allopurinol (Allopurinol) 300 Mg Tablet, 300 MG PO HS, 0 Refills 06/03/09 Discontinued Reported Medications Metoprolol Tartrate (Metoprolol Tartrate) 50 Mg Tablet, 50 MG PO BID, TAB 02/11/14 Diphenhydramine HCl (Benadryl) 25 Mg Capsule, 1 CAP PO HS Y for PRN ORDERS, CAP 12/21/14 Allergies: Coded Allergies: carisoprodol (Verified Allergy, Severe, UNRESPONSIVE, 07/09/16) Sulfa (Sulfonamide Antibiotics) (Verified Allergy, Unknown, UNKNOWN, ) morphine (Verified Adverse Reaction, Unknown, HALLUCINATIONS, 07/09/16) Family History Family History: Patient denies HX of cancer Social History Sexuality: female partner Review of Systems Constitutional: REPORTS: see HPI Eyes General: DENIES: burning, dryness, erythema, exudate, foreign body sensation, itching, other, pain, photophobia, see HPI, subconjunctival bleed, watering ENMT Ears: DENIES: drainage, erythema, foreign body, other, pain, see HPI Hearing: DENIES: hearing loss, other, see HPI, tinnitus Balance: DENIES: ataxia, falling to one side, other, see HPI, vertigo Cardiovascular DENIES: chest pain, dyspnea on exertion, hx of rheumatic fever, murmur, orthopnea, other, paroxysmal nocturnal dysp, see HPI Rhythm/Rate: DENIES: bradycardia, irregular beat, other, palpitations, see HPI , tachycardia Pulmonary Respiratory: DENIES: cough, dyspnea, exposure to TB, hyperventilation, other, pleuritic chest pain, pneumonia hx, see HPI, sputum, tachypnea GI Upper Abdomen: DENIES: abdominal swelling, dysphagia, food intolerances, heartburn/indigestion, hematemesis, nausea, other, pain, see HPI, vomiting Lower Abdomen: DENIES: blood in stool, monika-colored stools, constipation, diarrhea, melena, other, pain, painful BM, see HPI Musculoskeletal General: DENIES: atrophy of muscles, cramps, edema, joint pain, joint swelling , other, pain, see HPI, spasm, tenderness, weakness Integumentary Skin: DENIES: color change, infections, itching, lesion, mole, other, rash, see HPI, sores, tumor, ulcers Hair: DENIES: alopecia, breaking, change in distribution, dandruff, lesions, other, see HPI Neurological General: DENIES: aphasia, ataxia, blackouts, blindness, change in strength, dysarthria, dysesthesia, fainting, headache, memory disturbances, numbness, other, paralysis/paresis, poor coordination, see HPI, seizures, syncope, tics, tingling, tremor, vertigo, weakness Psychiatric Psychiatric: DENIES: anxiety, depression, emotional instability, hallucinations , irritability, memory impairment, nervousness, other, see HPI, suicidal ideation/attempt Endocrine DENIES: heat/cold intolerance, other, polydipsia, polyphagia, see HPI Hematologic/Lymphatic DENIES: anemia, bleeding gums, easy bruising, frequent nosebleeds, lymphadenopathy, other, see HPI Physical Exam General General Nourishment: well nourished, well developed Vital Signs Vital Signs Date Time Temp Pulse Resp B/P Pulse Ox O2 Delivery O2 Flow Rate FiO2 07/09/16 20:54 98.5 68 16 96/54 99 Room Air Height (Feet): 5 Height (Inches): 8.00 Respiratory Brief: FOUND: clear all benson, equal bilaterally Cardiovascular (brief) Cardiac Brief: FOUND: regular rate, regular rhythm Abdomen (brief) Abdominal Brief: FOUND: BS normo active x4, soft Musculoskeletal (brief) Musculoskeletal Brief: NOT FOUND: deformity, extremities move equally, loss of motion, other, spasm, tenderness Integumentary (brief) Integumentary Brief: FOUND: pink, NOT FOUND: dry, lesions, other, rash, warm Neurologic (brief) Neurological Brief: FOUND: cranial 2-12 intact Neurologic RN Documented GCS Eye Opening: (4)Spontaneous Verbal: (5)Oriented Motor: (6)Obeys Commands Total: Psychiatric (brief) FOUND: alert, normal affect, oriented Laboratory Laboratory Tests Test 07/09/16 22:17 07/09/16 22:48 White Blood Count 9.4T/MM3 Red Blood Count 3.19M/MM3 Hemoglobin 10.1GM/DL Hematocrit 30.5% Mean Corpuscular Volume 95.6UM3 Mean Corpuscular Hemoglobin 31.7UUG Mean Corpuscular Hemoglobin Concent 33.1GM/DL RDW Standard Deviation 48.6FL Platelet Count 188T/MM3 Mean Platelet Volume 9.5UM3 Immature Granulocyte % (Auto) 0.4% Neutrophils (%) (Auto) 70.4% Lymphocytes (%) (Auto) 16.1% Monocytes (%) (Auto) 8.1% Eosinophils (%) (Auto) 4.6% Basophils (%) (Auto) 0.4% Absolute Immature Granulocyte (auto 0.04T/MM3 Absolute Neutrophils (auto) 6.6T/MM3 Absolute Lymphocytes (auto) 1.5T/MM3 Absolute Monocytes (auto) 0.8T/MM3 Absolute Eosinophils (auto) 0.4T/MM3 Absolute Basophils (auto) 0.0T/MM3 Turbidity < 20 Sodium Level 139MEQ/L Potassium Level 5.5MEQ/L Chloride Level 103MEQ/L Carbon Dioxide Level 22MEQ/L Anion Gap 14MEQ/L Blood Urea Nitrogen 95.0MG/DL Creatinine 3.6MG/DL Glomerular Filtration Rate Calc 16 BUN/Creatinine Ratio 26RATIO Glucose Level 134MG/DL Calculated Osmolality 299MOSM/KG Calcium Level 9.6MG/DL Total Bilirubin 0.80MG/DL Icterus Index < 2 Aspartate Amino Transf (AST/SGOT) 27U/L Alanine Aminotransferase (ALT/SGPT) 37U/L Alkaline Phosphatase 64U/L SF-Smq-[id number]-Type Natriuretic Peptide 3610PG/ML Total Protein 7.0G/DL Albumin 4.1G/DL Globulin 2.9G/DL Albumin/Globulin Ratio 1.4RATIO Chemistry Specimen Hemolysis < 15 Urine Collection Type Voided-not cc-midstr Urine Color Yellow Urine Turbidity Clear Urine pH 5.0 Urine Specific [place] 1.020 Urine Protein Negative Urine Glucose (UA) Negative Urine Ketones Negative Urine Blood Negative Urine Nitrite Negative Urine Bilirubin Negative Urine Urobilinogen 0.2EU/DL Urine Leukocyte Esterase Negative Urinalysis Comment Microscopic not ind. Assessment & Plan Problems: (1) Acute renal failure Status: Acute Assessment & Plan: etiology unknown. Likely due to volume depletion from decreased PO intake. Will give IVF NS at 124cc/hr overnight. Monitor UOP and BUN/ Cr. Given patients constellation of symptoms he will likely need further work up for possible underlying CA. (2) Hypertension Status: Acute Assessment & Plan: continue home meds (3) CHF (congestive heart failure) Status: Acute Assessment & Plan: will give gentle IVF and carefully monitor fluid status. DVT Prophylaxis: SCD'S Code Status Full Code Hospital Course Summary Disclaimer The hospital course summary below is not to be considered part of the above Progress Note. NATHANIEL PRATT DO 07/10/16 9262: Past Medical History Current Medications Home Meds Reported Medications Pyridoxine HCl (Pyridoxine HCl) 100 Mg Tablet, 100 MG PO WL, TAB 07/10/16 Zolpidem Tartrate (Ambien) 5 Mg Tablet, 5 MG PO HS, TAB Take 1 tablet, by mouth, 1 time a day (at BEDTIME). 07/09/16 Aspirin (Aspir 81) 81 Mg Tablet.dr, 1 TAB PO DAILY, #30 TAB 5 Refills 07/09/16 Carvedilol (Carvedilol) 6.25 Mg Tablet, 1 TAB PO BIDWM, TAB BEST WITH FOOD. 07/09/16 Potassium Chloride (Klor-Con 10) 10 Meq Tablet.er, 1 TAB PO BID 07/09/16 Lisinopril (Lisinopril) 10 Mg Tablet, 10 MG PO DAILY for HYPERTENSION, TAB 07/09/16 Warfarin Sodium (Warfarin Sodium) 4 Mg Tablet, 4 MG PO 1700, TAB Take 1 tablet, by mouth, 1 time a day (at 5 pm). 03/02/15 Furosemide (Furosemide) 20 Mg Tablet, 20 MG PO DAILY, #30 05/19/14 Atorvastatin Calcium (Atorvastatin Calcium) 40 Mg Tablet, 1 TAB PO DAILY, TAB 02/05/14 Ubidecarenone (Co Q-10) 200 Mg Capsule, 200 MG PO DAILY 09/29/13 Famotidine (Famotidine) 20 Mg Tablet, 20 MG PO DAILY, TAB 0 Refills 06/04/13 Folic Acid (Folic Acid) 0.8 Mg Tablet, 400 MCG PO WL, 0 Refills 03/15/12 Finasteride (Finasteride) 5 Mg Tablet, 5 MG PO DAILY, 0 Refills 06/03/09 Allopurinol (Allopurinol) 300 Mg Tablet, 300 MG PO HS, 0 Refills 06/03/09 Discontinued Reported Medications Metoprolol Tartrate (Metoprolol Tartrate) 50 Mg Tablet, 50 MG PO BID, TAB 02/11/14 Diphenhydramine HCl (Benadryl) 25 Mg Capsule, 1 CAP PO HS Y for PRN ORDERS, CAP 12/21/14 Allergies: Coded Allergies: carisoprodol (Verified Allergy, Severe, UNRESPONSIVE, 07/09/16) Sulfa (Sulfonamide Antibiotics) (Verified Allergy, Unknown, UNKNOWN, ) morphine (Verified Adverse Reaction, Unknown, HALLUCINATIONS, 07/09/16) Assessment & Plan Plan/Intensity of Service 07/10/2016 Dr. Pratt H&P: I saw and examined Edmundo Fonseca in his room today. He was alert, quite cooperative, and in his asked many, many pertinent questions. He came to the ER last night because his doctor told him he had a high potassium and he had a lousy kidney function rating. Ama [place] history to this current problem as he did not realize he was as sick as his doctor believed him to be. Edmundo's medical history includes the following problems: Coronary artery disease, hypertension, congestive heart failure, acute renal failure, hyperkalemia, atrial fib after his CABG in 2004. He also has sleep apnea. Lately he has had a headache and body aches more or less for the past 2 months. Surgical history includes an appendectomy, back surgery, tonsillectomy, elbow surgery, knee surgery, dad and a coronary artery bypass graft, I believe 3 vessels, in 2004. The family history is noncontributory. His review of systems is positive for 2 months [place] past for headaches, and body aches, as well as long-term renal problems. Is also positive for backaches elbow pain and knee pain. The remainder of his review of systems is negative. Physical exam is as follows: Head is normocephalic pupils are equal tympanic membranes are clear nares are clear and the oropharynx is clear. Neck is supple with no lymphadenopathy. Lungs are clear to auscultation bilaterally, and the heart shows a regular rhythm and rate. Abdomen is soft, nontender with physiologic bowel sounds. Rectal exam is deferred and the genital exam is deferred. Extremities show no clubbing cyanosis or edema integument is warm and dry and without rash or bruising. Cranial nerves II through XII are grossly intact. The diagnoses are as follows: Acute renal failure; 2. Hypertension, chronic; 3. Congestive heart failure, chronic and 4. Hyperkalemia currently. Our plan is to hydrate this gentleman because right now he is a little dry with osmolality of 296. We've already raises GFR from 16-18 with the with this gentle hydration. Creatinine was was 3.3 albumin 90 and those should both be helped with this gentle hydration. Potassium was 5.5 and I'm sure that will come down also. We have to do this slowly as the his BNP was 3600. He stated irritated tomorrow will know how that will result. JOHNATHAN HERNANDEZ MD Jul 10, 2016 00:07 NATHANIEL PRATT DO Jul 10, 2016 23:13
[2016-07-10] MEDS: ZOLPIDEM 5 MG TABLET PO SCH ×2 (01:05→22:05)
[2016-07-10] MEDS: NORMAL SALINE 1,000 ML IV SCH ×3 (01:59→19:59)
--- NOTE | 2016-07-10 05:18 | NUR ---
Shift Summary Pt. reports sleeping some; states it is difficult to sleep in a different environment. Output 600cc for shift. IVF NS infusing 125cc/hr.
[2016-07-10 05:42] LABS: BASOPHILS % (AUTO) 0.3 % (0-2); EOSINOPHILS # (AUTO) 0.4 T/MM3 (0-0.5); EOSINOPHILS % (AUTO) 4.5 % (0-4); HCT - HEMATOCRIT 28.7 % (41-53); HGB - HEMOGLOBIN 9.6 GM/DL (13.5-17.5); IMMATURE GRANULOCYTE # (AUTO) 0.03 T/MM3 (0.00-0.03); IMMATURE GRANULOCYTE % (AUTO) 0.3 % (0.0-0.5); INR 2.95 (0.76-1.04); LYMPHOCYTES # (AUTO) 1.4 T/MM3 (1-4.8); LYMPHOCYTES % (AUTO) 15.9 % (23-45); MEAN CORPUSCULAR HGB 31.9 UUG (26-34); MEAN CORPUSCULAR HGB CONC(MCHC 33.4 GM/DL (31-37); MEAN CORPUSCULAR VOLUME 95.3 UM3 (80-100); MONOCYTES # (AUTO) 0.9 T/MM3 (0-0.8); MONOCYTES % (AUTO) 10.5 % (0-9.0); NEUTROPHILS #(AUTO)-ABSOLUTE 5.9 T/MM3 (1.8-7.7); NEUTROPHILS % (AUTO) 68.5 % (33-66); PROTHROMBIN TIME 32.2 SEC (9.31-12.49); RED BLOOD COUNT 3.01 M/MM3 (4.50-5.90); WBC - WHITE BLOOD COUNT 8.6 T/MM3 (4.5-11.0)
[2016-07-10 05:54] LABS: ANION GAP 10 MEQ/L (5-15); BUN/CREATININE RATIO 27 RATIO (6-26); CALCIUM 9.2 MG/DL (8.4-10.2); CHLORIDE 107 MEQ/L (98-107); CO2 - CARBON DIOXIDE 22 MEQ/L (22-30); CREATININE 3.3 MG/DL (0.8-1.5); GLOMERULAR FILTRATION RATE 18; GLUCOSE 107 MG/DL (75-110); MAGNESIUM 2.1 MG/DL (1.6-2.3); PHOSPHORUS 5.1 MG/DL (2.5-4.5); POTASSIUM 5.5 MEQ/L (3.6-5); SODIUM 139 MEQ/L (134-144)
[2016-07-10] MEDS ORDERED: ATORVASTATIN 40 MG TABLET PO SCH ×2 (09:00→22:00)
[2016-07-10] MEDS: CARVEDILOL 6.25 MG TABLET PO SCH ×2 (09:37→17:35)
[2016-07-10] MEDS: FAMOTIDINE 20 MG TABLET PO SCH (09:37)
[2016-07-10] MEDS: ASPIRIN *EC* 81mg TABLET PO SCH (09:37)
[2016-07-10] MEDS ORDERED: PYRI100T6 PO (13:56)
[2016-07-10] MEDS ORDERED: PNEUMOCOCCAL 13 VACCINE 0.5 ML SYRINGE IM ONE (14:00)
[2016-07-10] MEDS ORDERED: PNEUMOCOCCAL VAC. ADMIN. CHARGE INJ ONE (14:00)
--- NOTE | 2016-07-10 14:34 | NUR ---
CM THIS WORKER VISITED PT IN ROOM, WAS PRESENT. THIS WORKER INTRODUCED SELF AND ROLE OF CASE MANAGEMENT. THIS WORKER DISCUSSED PLANS AFTER BEING DISCHARGED, PT STATED HE WILL BE RETURNING HOME WITH . PT STATED HE HAS GOOD FINANCIAL SUPPORT AND FAMILY SUPPORT. CHILDREN AND FAMILY LIVE IN [place]. PT AND DENIED ANY NEEDS. THIS PT WAS GIVEN THIS WORKER'S CONTACT INFORMATION AND ENCOURAGED TO CALL WITH ANY QUESTIONS/NEEDS. Addendum: 07/10/16 at 1434 by TABBY SMITH Amended: Links added.
[2016-07-10] MEDS: LISINOPRIL 2.5 MG TABLET PO SCH (15:15)
[2016-07-10] MEDS ORDERED: WARFARIN 4 MG TABLET PO SCH (17:00)
--- NOTE | 2016-07-10 18:47 | NUR ---
SHIFT SUMMARY PT ALERT AND ORIENTED X3. PT ON RA, DENIES SOA. DENIES PAIN, DENIES N/V. UP WITH STAND BY ASSIST, CANE. IVL RIGHT AC PATENT. ADEQUATE URINE OUTPUT. PT ABLE TO MAKE NEEDS KNOWN. AMBULATED IN ROOM MULTIPLE TIMES TODAY. BED ALARM ON, CALL LIGHT WITHIN REACH.
[2016-07-11] VITALS: BP 96/54; PULSE 61; RESP 15; TEMP 97.5; O2SAT 96
[2016-07-11] MEDS: NORMAL SALINE 1,000 ML IV SCH ×3 (03:31→15:15)
--- NOTE | 2016-07-11 03:55 | NUR ---
SUMMARY PT IS ALERT AND ORIENTED. PT HAS BEEN SLEEPING AT EACH ROUNDING CHECK. DENIES PAIN. DENIES NAUSEA. DENIES SOA, DENIES DIZZINESS. IV IN THE RT AC RUNNING NS 125 ML/HR.
[2016-07-11 07:41] VITALS: BP 134/60; PULSE 89; RESP 16; TEMP 98.1; O2SAT 98
[2016-07-11 07:48] VITALS: PULSE 87; RESP 16
[2016-07-11 07:58] VITALS: PULSE 87; RESP 16
[2016-07-11] MEDS: LISINOPRIL 2.5 MG TABLET PO SCH (08:44)
[2016-07-11] MEDS: ASPIRIN *EC* 81mg TABLET PO SCH (08:45)
[2016-07-11] MEDS: FAMOTIDINE 20 MG TABLET PO SCH (08:45)
[2016-07-11] MEDS: CARVEDILOL 6.25 MG TABLET PO SCH ×2 (08:45→17:10)
[2016-07-11 12:28] LABS: INR 3.05 (0.76-1.04); PROTHROMBIN TIME 33.2 SEC (9.31-12.49)
--- NOTE | 2016-07-11 14:28 | NUR ---
COUMADIN CONSULT (Initial): Dx: AFIB Baseline INR = 3.05. Mr Fonseca usually receives warfarin 4mg daily, will give 2.5mg today. Will continue to monitor and make adjustments accordingly. Thank you.
[2016-07-11] MEDS ORDERED: WARFARIN 2.5 MG TABLET PO ONE (14:30)
[2016-07-11 15:11] VITALS: BP 136/57; PULSE 61; RESP 18; TEMP 97; O2SAT 100
[2016-07-11 16:36] LABS: ANION GAP 10 MEQ/L (5-15); BUN/CREATININE RATIO 34 RATIO (6-26); CALCIUM 8.8 MG/DL (8.4-10.2); CHLORIDE 112 MEQ/L (98-107); CO2 - CARBON DIOXIDE 22 MEQ/L (22-30); CREATININE 1.7 MG/DL (0.8-1.5); GLOMERULAR FILTRATION RATE 39; GLUCOSE 101 MG/DL (75-110); POTASSIUM 5.2 MEQ/L (3.6-5); SODIUM 144 MEQ/L (134-144)
--- NOTE | 2016-07-11 17:28 | NUR ---
NON-ADMIN COREG PT BEING DISCHARGED THIS EVENING. WILL TAKE OWN COREG AT HOME DUE TO MOP STATUS AND COST.
--- NOTE | 2016-07-11 18:07 | NUR ---
SHIFT SUMMARY VSS. RA. DENIES PAIN. AMBULATED SEVERAL TIMES INDEPENDENTLY IN HALLWAY TODAY. IV FLUIDS D/C'D. GOOD INTAKE AND URINE OUTPUT. PRESENT MOST OF DAY.
--- NOTE | 2016-07-11 18:44 | DSPDOC ---
General Date Date DATE: 07/11/16 TIME: 18:38 Attending Physician Alejandra Dsouza MD Admitting Physician Alejandra Dsouza MD Consulting Physician Admitting Diagnosis acute renal insufficiency Discharge Diagnosis . Acute renal failure, resolved 2. CHF, controlled 3. Hypertension, chronic 4. She be G, 2004 6. Hyperkalemia, mostly resolved 7. Dehydration, resolved Procedures None Laboratory Laboratory Tests Test 07/11/16 10:00 07/11/16 12:10 07/11/16 15:54 07/11/16 16:07 Stool Occult Blood Negative Prothromb Time International Ratio 3.05 (0.76-1.04) Specimen Comment ([facility]) Lab to recollect Tests Not Done Bmp Reason Tests Not Done Hemolyzed specimen Turbidity < 20 (0-20) Sodium Level 144MEQ/L (134-144) Potassium Level 5.2MEQ/L (3.6-5) Chloride Level 112MEQ/L (98-107) Carbon Dioxide Level 22MEQ/L (22-30) Anion Gap 10MEQ/L (5-15) Blood Urea Nitrogen 58.0MG/DL (9-20) Creatinine 1.7MG/DL (0.8-1.5) Glomerular Filtration Rate Calc 39 BUN/Creatinine Ratio 34RATIO (6-26) Glucose Level 101MG/DL (75-110) Calculated Osmolality 293MOSM/KG (261-280) Calcium Level 8.8MG/DL (8.4-10.2) Icterus Index < 2 (0-7) Chemistry Specimen Hemolysis < 15 (0-25) Microbiology Not applicable History of Present Illness 81 yo M with PMH of A. Fib and CAD presented to the ED per his PCP's request for abnormal lab values. He was told his potassium was 6.5 and creatinine was 3.5 on a routine blood draw today. He has felt "cruddy" with a headache and some body aches for about 2 months now. Has a history of coronary artery disease and atrial fibrillation after having a coronary bypass in 2004. He denies CP, SOA, abdominal pain and changes in bowel habits or black stools. He reports a decreased appetite and a 10 lbs weight loss in the past 2 months. Patient was admitted for IVF, further evaluation and treatment. Hospital Course This 81-year-old gentleman came into to the hospital with complaints of acute renal failure and CHF. He also complaints of dehydration. He was dehydrated, with a also loudly of 299; he also had a GFR of only 16, which is quite close to the area where we think about dialysis. He also had hyperkalemia which was a 5.5 when he came in when necessary was 58 creatinine was 1.7. H&H was 9.6 and 28.7. We hydrated him talk to him quite a bit about limiting his caffeine in all forms including tea and coffee on his next lab work is GFR and risen to 18 and today it was up to 39 which is quite amazing. His potassium today dropped to 5.2 which is barely above normal his dehydration was resolved also he assures us he is going to start drinking water every day and avoid the caffeine which pushes up out of his body he has done quite well the hospital and is leaving in much better condition than he came in. He also says he feels much much better than when he came in he plans to follow-up with Dr. martinez or 2. He'll build make those plans easily I did spend over 30 minutes doing this discharge summary Problems: (1) Acute renal failure Status: Acute Assessment & Plan: etiology unknown. Likely due to volume depletion from decreased PO intake. Will give IVF NS at 124cc/hr overnight. Monitor UOP and BUN/ Cr. Given patients constellation of symptoms he will likely need further work up for possible underlying CA. (2) Hypertension Status: Acute Assessment & Plan: continue home meds (3) CHF (congestive heart failure) Status: Acute Assessment & Plan: will give gentle IVF and carefully monitor fluid status. Code Status Full Code Home Meds Reported Medications Pyridoxine HCl (Pyridoxine HCl) 100 Mg Tablet, 100 MG PO WL, TAB 07/10/16 Zolpidem Tartrate (Ambien) 5 Mg Tablet, 5 MG PO HS, TAB Take 1 tablet, by mouth, 1 time a day (at BEDTIME). 07/09/16 Aspirin (Aspir 81) 81 Mg Tablet.dr, 1 TAB PO DAILY, #30 TAB 5 Refills 07/09/16 Carvedilol (Carvedilol) 6.25 Mg Tablet, 1 TAB PO BIDWM, TAB BEST WITH FOOD. 07/09/16 Potassium Chloride (Klor-Con 10) 10 Meq Tablet.er, 1 TAB PO BID 07/09/16 Lisinopril (Lisinopril) 10 Mg Tablet, 10 MG PO DAILY for HYPERTENSION, TAB 07/09/16 Warfarin Sodium (Warfarin Sodium) 4 Mg Tablet, 4 MG PO 1700, TAB Take 1 tablet, by mouth, 1 time a day (at 5 pm). 03/02/15 Atorvastatin Calcium (Atorvastatin Calcium) 40 Mg Tablet, 1 TAB PO DAILY, TAB 02/05/14 Ubidecarenone (Co Q-10) 200 Mg Capsule, 200 MG PO DAILY 09/29/13 Famotidine (Famotidine) 20 Mg Tablet, 20 MG PO DAILY, TAB 0 Refills 06/04/13 Folic Acid (Folic Acid) 0.8 Mg Tablet, 400 MCG PO WL, 0 Refills 03/15/12 Finasteride (Finasteride) 5 Mg Tablet, 5 MG PO DAILY, 0 Refills 06/03/09 Allopurinol (Allopurinol) 300 Mg Tablet, 300 MG PO HS, 0 Refills 06/03/09 Discontinued Reported Medications Furosemide (Furosemide) 20 Mg Tablet, 20 MG PO DAILY, #30 05/19/14 Metoprolol Tartrate (Metoprolol Tartrate) 50 Mg Tablet, 50 MG PO BID, TAB 02/11/14 Diphenhydramine HCl (Benadryl) 25 Mg Capsule, 1 CAP PO HS Y for PRN ORDERS, CAP 12/21/14 Face to Face Encounter I met with patient on the day of dismissal and discussed follow up appointments , medications, and safety plan. Discharge Disposition Patient is discharged to his home with his . NATHANIEL MARTINEZ DO Jul 11, 2016 18:43
[2016-07-11] MEDS ORDERED: FURO20TA4 PO (18:52)
--- NOTE | 2016-07-11 19:04 | NUR ---
DISMISSAL TO HOME VSS. RA. DENIES PAIN. DISMISSAL INSTRUCTIONS REVIEWED WITH PT AND SPOUSE. DENY QUESTIONS. TAKEN TO FRONT ENTRANCE BY WHEELCHAIR. DROVE PT HOME IN PRIVATE VEHICLE.
== END 2016-07-11 19:04 | disposition home or self-care (01) ==
LOC: ED 20:34 → EDHOLD 23:07 → MED 07-10 00:08
PROVIDERS: ADMIT Internal Medicine; ATTEND Internal Medicine
DX: N28.9 Disorder of kidney and ureter, unspecified (principal); I50.9 Heart failure, unspecified; I10 Essential (primary) hypertension; E87.5 Hyperkalemia; E86.0 Dehydration; Z95.1 Presence of aortocoronary bypass graft; Z79.82 Long term (current) use of aspirin; Z79.01 Long term (current) use of anticoagulants; Z79.899 Other long term (current) drug therapy; I25.10 Atherosclerotic heart disease of native coronary artery without angina pectoris; I48.91 Unspecified atrial fibrillation; E78.00 Pure hypercholesterolemia, unspecified; M10.9 Gout, unspecified; G47.30 Sleep apnea, unspecified; K21.9 Gastro-esophageal reflux disease without esophagitis; N40.0 Benign prostatic hyperplasia without lower urinary tract symptoms; F32.9 Major depressive disorder, single episode, unspecified; Z95.5 Presence of coronary angioplasty implant and graft; Z23 Encounter for immunization
CPT/HCPCS: 36415; 80048; 80053; 81003; 82272; 83735; 83880; 84100; 85025; 85610; 90732; 96360; 96361; 99284; A9270; G0009; G0378; J7030; 96372; 99218

== ENCOUNTER 2016-07-29 00:39 | Observation (INO) | payer MEDICARE, BC ==
[2016-07-29] VITALS (8 sets, daily range): BP systolic 93–135; BP diastolic 51–69; PULSE 60–74; RESP 14–18; TEMP 97.5–98.5; O2SAT 95–100; Ht 172.7 cm; Wt 95.4 kg
[~2016-07-29] VITALS: Ht 172.7 cm; Wt 95.4 kg
[~2016-07-29 00:39] MED LIST changes: +ASPI-557 PO; +CARV6.252 PO; -DIPH25CA84 PO; +LISI10TA7 PO; -METO50TA5 PO; +POTA10TA10 PO; +PYRI100T6 PO; -PYRI50TA24 PO; +ZOLP5TAB2 PO
--- OUTSIDE RECORDS SUMMARY | 2016-07-29 00:43 | XMS REPORT | Continuity of Care Document ---
Author Author [facility] Organization [facility] Address Unknown Phone Unavailable Support Name Relationship Address Phone MOHSEN ANAND MD Caregiver [address] [place] [address] Unavailable ALEJANDRA HERNANDEZ MD Caregiver [address] [place] [phone] Unavailable ALEJANDRA HERNANDEZ MD Caregiver [address] [place] [phone] Unavailable BIJAL ATWOOD MD Caregiver [address] [place] [address] [address] [facility] Unavailable SILVIO FONSECA I Next Of Kin [address] [place] [id number] Insurance Providers Guarantor Edmundo Fonseca Address [address] [place] [address] Email 07-09-16 Payer Medicare Policy Number [id number] Subscriber's Name Edmundo Fonseca Relationship 18 Self Effective Date 00 Payer [facility] Policy Number [id number] Subscriber's Name Edmundo Fonseca Relationship 18 Self Group Number [id number] Advance Directives Directive Response Recorded Date/Time Advanced Directives Type None 09/29/13 3:38am Ordered Resuscitation Status Full Code 09/29/13 2:41am Resuscitation Documents on File No 07/10/16 12:23am DPOA for Healthcare Only Y sonChristiano Nato 07/10/16 12:23am Living Will Yes 07/10/16 12:23am Problems Active Problems Medical Problem Onset Date Status Altered mental status Unknown Acute Back spasm Unknown Acute Bradycardia Unknown Acute CAD (coronary artery disease) Unknown Chronic CHF (congestive heart failure) Unknown Acute Chest pain Unknown Acute Dyspnea Unknown Acute Dyspnea Unknown Acute Dyspnea Unknown Acute Hypertension Unknown Acute New onset atrial fibrillation Unknown Acute Pneumonia Unknown Acute Volume depletion Unknown Acute Volume depletion Unknown Acute Past Problems Medical Problem Onset Date Acute renal failure Unknown Medications Current Home Medications Medication Dose Units Route Directions Days Qty Instructions Start Date Allopurinol 300 Mg Tablet 300 Mg Oral Bedtime 06/03/09 Aspirin (Aspir 81) 81 Mg Tablet.dr 1 Tab Oral Daily 30 Tablet 07/09 Atorvastatin Calcium 40 Mg Tablet 1 Tab Oral Daily 02/05/14 Carvedilol 6.25 Mg Tablet 1 Tab Oral Twice Daily With Meals BEST WITH FOOD. 07/09/16 Famotidine 20 Mg Tablet 20 Mg Oral Daily 06/04/13 Finasteride 5 Mg Tablet 5 Mg Oral Daily 06/03/09 Folic Acid 0.8 Mg Tablet 400 Mcg Oral Give With Lunch 03/15/12 Furosemide 20 Mg Tablet 1 Tab Oral Daily 30 Days 30 Tablet 07/11/16 Lisinopril 10 Mg Tablet 10 Mg Oral Daily for Hypertension Potassium Chloride (Klor-Con 10) 10 Meq Tablet.er 1 Tab Oral Twice A Day 07/09/16 Pyridoxine Hcl 100 Mg Tablet 100 Mg Oral Give With Lunch 07/10/16 Ubidecarenone (Co Q-10) 200 Mg Capsule 200 Mg Oral Daily 09/29/13 Warfarin Sodium 4 Mg Tablet 4 Mg Oral 1700 Take 1 tablet, by mouth, 1 time a day (at 5 pm). 03/02/15 Zolpidem Tartrate (Ambien) 5 Mg Tablet 5 Mg Oral Bedtime Take 1 tablet, by mouth, 1 time a day (at BEDTIME). 07/09/16 Past Home Medications Medication Directions Ordered Status Aspirin (Aspir 81) 81 Mg Tablet.dr, 81 Mg Oral Bedtime 06/02/09 Discontinued Clopidogrel Bisulfate (Plavix) 75 Mg Tablet, 75 Mg Oral Daily 06/02/09 Discontinued Cyanocobalamin/Folic Acid (Vitamin D11-Mbllt Acid Tablet) 1 Each Tablet, 1 Each Oral Daily 03/15/12 Discontinued Cyclobenzaprine Hcl (Flexeril) 10 Mg Tablet, 10 Mg Oral Every 8 Hours as needed for Pain &/Or Spasm 09/23/13 Discontinued Diphenhydramine Hcl (Benadryl) 25 Mg Capsule, 1 Cap Oral Bedtime as needed for Prn Orders 12/21/14 Discontinued Docusate Sodium (Stool Softener) 100 Mg Capsule, 100 Mg Oral As Needed Discontinued Doxycycline Hyclate 100 Mg Tablet, 100 Mg Oral Twice Daily With Meals as needed for Inflammation 01/04/14 Discontinued Doxylamine Succinate (Unisom Sleep Aid) 25 Mg Tablet, 25 Mg Oral Bedtime Discontinued Ezetimibe (Zetia) 10 Mg Tablet, 10 Mg Oral Daily 06/03/09 Discontinued Fish Oil/[place]-3 Fatty Acids (Fish Oil 1,200 Mg Softgel) 1 Cap Capsule, 1 Cap Oral Daily 06/02/09 Discontinued Folic Acid 0.8 Mg Tablet, 0.8 Mg Oral Daily 06/03/09 Discontinued Furosemide 20 Mg Tablet, 20 Mg Oral Daily 05/19/14 Discontinued Hydrocodone Bit/Acetaminophen ([place] 7.5/325 Tablet) 1 Tab Tablet, 1 Tab Oral One To Three Times A Day 09/29/13 Discontinued Irbesartan/Hydrochlorothiazide (Avalide 150-12.5 Mg Tablet) 1 Tab Tablet, 1 Tab Oral Daily 03/15/10 Discontinued Irbesartan/Hydrochlorothiazide (Avalide 300-12.5 Mg Tablet) 1 Tab Tablet, 1 Tab Oral Bedtime 06/03/09 Discontinued Losartan/Hydrochlorothiazide (Losartan-Hctz 100-12.5 Mg Tab) 1 Each Tablet, 1 Each Oral Daily 03/15/12 Discontinued Metoprolol Succinate (Toprol Xl) 50 Mg Tab.sr.24h, 25 Mg Oral Twice Daily Lunch & Supper 06/03/09 Discontinued Metoprolol Tartrate 50 Mg Tablet, 50 Mg Oral Twice A Day 02/11/14 Discontinued Metoprolol Tartrate 50 Mg Tablet, 50 Mg Oral Twice Daily With Meals 01/01/14 Discontinued Vit/Fe Fumarate/Fa ( Vitamins Tablet) 1 Tab Tablet, 1 Tab Oral Daily 12/21/08 Discontinued Rosuvastatin Calcium (Crestor) 10 Mg Tablet, 10 Mg Oral Bedtime 06/03/09 Discontinued Simvastatin 40 Mg Tablet, 40 Mg Oral Daily 05/09/13 Discontinued Ubidecarenone (Co Q-10) 100 Mg Capsule, 100 Mg Oral Daily 05/09/13 Discontinued Ubidecarenone (Coenzyme Q10) 200 Mg Tablet, 300 Mg Oral Daily 06/03/09 Discontinued Zolpidem Tartrate (Ambien Cr) 12.5 Mg/Bottle Tab.mphase, 12.5 Mg Oral Bedtime 09/23/13 Discontinued Zolpidem Tartrate (Ambien) 10 Mg Tablet, 10 Mg Oral Bedtime 03/15/10 Discontinued Zolpidem Tartrate (Ambien Cr) 12.5 Mg/Bottle Tab.mphase, 12.5 Mg Oral Bedtime 06/03/09 Discontinued Social History Social History Problem Response Recorded Date/Time Onset Date Status Reason for Hospitalization ACUTE RENAL INSUFFICIENCY 07/11/2016 6:44pm Not Applicable Not Applicable Chewing Tobacco Status No 09/29/2013 12:35am Not Applicable Not Applicable Hx Substance Use No 07/09/2016 9:30pm Not Applicable Not Applicable Hx Alcohol Use No 07/09/2016 9:30pm Not Applicable Not Applicable Has the pt used tobacco in the last 12 months No 07/10/2016 12:19am Not Applicable Not Applicable Tobacco Usage none 09/24/2013 9:00am Not Applicable Not Applicable Query Response Start Date Stop Date Smoking Status Former smoker Hospital Discharge Instructions Instructions: Care Instructions: I was in the hospital because (patient own words): Got a call from doctor that labwork today was concerning and to come to ER. Discharge Diet: low-sodium Discharge Activity: As tolerated and Follow Up Appointments: Follow up with your primary care doctor within 2 weeks. Pending Lab / Results: No Pending Lab Expected Signs/Symptoms: None but if you do experience lightheadedness or lack of function you could have a low blood pressure or kidney problems. Notify Physician If: You feel ill. During Business Hours:: Please call the physician's office at his office After Business Hours:: Please call [phone] and have the roll mill operator page the physician. Pain Management/Treatment: N/a Wound/Incision Care: N/a Condition at time of discharge: Good Plan of Care Discharge Date 07/11/16 7:04pm Disposition 01 DISCHARGED HOME, SELF-CARE Instructions/Education Provided Chronic Kidney Disease (DC) Hyperkalemia (DC) Prescriptions See Medication Section Care Plan and Goals See Discharge Instructions Section Functional Status Query Response Date Recorded Mobility Status Ambulatory w/assist July 10, 2016 1:07am Assistive Devices Cane July 10, 2016 1:07am Activity Limitations Weakness July 10, 2016 1:07am Feeding Ability Independent July 10, 2016 1:07am Toileting Ability Independent July 10, 2016 1:07am Grooming Ability Independent July 10, 2016 1:07am Dressing Ability Independent July 10, 2016 1:07am Driving Ability Independent July 10, 2016 1:07am Housework Ability Assist July 10, 2016 1:07am Meal Preparation Ability Independent July 10, 2016 1:07am Stair Climbing Ability Assist July 10, 2016 1:07am Ability to complete ADL's impeded by No change July 10, 2016 1:07am Cognitive/Perceptual Impairments Impaired vision July 10, 2016 1:07am Visual Assistive Devices Glasses July 10, 2016 1:07am Allergies, Adverse Reactions, Alerts Allergen Type Severity Reaction Status Last Updated Sulfa (Sulfonamide Antibiotics) Allergy Unknown UNKNOWN Active 07/09/16 Morphine Adverse Reaction Unknown HALLUCINATIONS Active 07/09/16 Carisoprodol Allergy Severe UNRESPONSIVE Active 07/09/16 Immunizations Immunization Event Date Type Not Given Reason Dose Number Lot Number [employer] VIS Given Pneumococcal conjugate PCV 13 07/10/16 Administered 1 [id number] Pfizer Query Response on File Recorded Date/Time Hx Influenza Vaccination Y Jan 2016 07/10/16 12:19am Hx Pneumococcal Vaccination Y April 2013 07/10/16 12:19am Hx Influenza Vaccination Y Jan 2016 07/10/16 12:19am Influenza Vaccine Hx NOV 2015 07/10/16 1:57pm Vital Signs Acute Vital Signs Vital Response Date/Time Temperature (Fahrenheit) 97.0 deg F (96.8 - 99.1) 07/11/2016 3:11pm Temperature (Calculated Celsius) 36.48832 degrees C (36.0 - 37.3) 07/11/2016 3:11pm Pulse Rate (adult) 61 bpm (60 - 100) 07/11/2016 3:11pm Respiratory Rate 18 breaths/min (10 - 20) 07/11/2016 3:11pm O2 Sat by Pulse Oximetry 100 % (90 - 100) 07/11/2016 3:11pm Oxygen Delivery Method Room Air 07/11/2016 3:11pm Blood Pressure 136/57 mm Hg 07/11/2016 3:11pm Blood Pressure Source Automatic Cuff 07/11/2016 3:11pm Height (Feet) 5 feet 07/10/2016 1:04am Height (Inches) 8.00 inches 07/10/2016 1:04am Weight (Kilograms) 90.100 kg 07/11/2016 7:40am Body Mass Index (BMI) 30.2 07/10/2016 12:22am Results Laboratory Results Test Name Result Units Flags Reference Collection Date/Time Result Date/ Time Comments White Blood Count 8.6 T/MM3 4.5-11.0 07/10/2016 4:38am 07/10/2016 5: 42am Red Blood Count 3.01 M/MM3 L 4.50-5.90 07/10/2016 4:38am 07/10/2016 5: 42am Hemoglobin 9.6 GM/DL L 13.5-17.5 07/10/2016 4:38am 07/10/2016 5:42am Hematocrit 28.7 % L 41-53 07/10/2016 4:38am 07/10/2016 5:42am Mean Corpuscular Volume 95.3 UM3 80-100 07/10/2016 4:38am 07/10/2016 5: 42am Mean Corpuscular Hemoglobin 31.9 UUG 26-34 07/10/2016 4:38am 2016 5:42am Mean Corpuscular Hemoglobin Concent 33.4 GM/DL 31-37 07/10/2016 4:3807/10/2016 5:42am RDW Standard Deviation 47.4 FL 36.9-50.2 07/10/2016 4:3807/10/2016 5 :42am Platelet Count 167 T/MM3 130-400 07/10/2016 4:38am 07/10/2016 5:42am Mean Platelet Volume 10.0 UM3 9.4-12.4 07/10/2016 4:38am 07/10/2016 5: 42am Neutrophils (%) (Auto) 68.5 % H 33-66 07/10/2016 4:3807/10/2016 5: 42am Lymphocytes (%) (Auto) 15.9 % L 23-45 07/10/2016 4:3807/10/2016 5: 42am Monocytes (%) (Auto) 10.5 % H 0-9.0 07/10/2016 4:3807/10/2016 5:42am Eosinophils (%) (Auto) 4.5 % H 0-4 07/10/2016 4:3807/10/2016 5:42am Basophils (%) (Auto) 0.3 % 0-2 07/10/2016 4:3807/10/2016 5:42am Immature Granulocyte % (Auto) 0.3 % 0.0-0.5 07/10/2016 4:382016 5:42am Absolute Neutrophils (auto) 5.9 T/MM3 1.8-7.7 07/10/2016 4:38am 2016 5:42am Absolute Lymphocytes (auto) 1.4 T/MM3 1-4.8 07/10/2016 4:38am 2016 5:42am Absolute Monocytes (auto) 0.9 T/MM3 H 0-0.8 07/10/2016 4:38am 2016 5:42am Absolute Eosinophils (auto) 0.4 T/MM3 0-0.5 07/10/2016 4:38am 2016 5:42am Absolute Basophils (auto) 0.0 T/MM3 0-0.2 07/10/2016 4:38am 07/10/2016 5:42am Absolute Immature Granulocyte (auto 0.03 T/MM3 0.00-0.03 07/10/2016 4: 38am 07/10/2016 5:42am Prothromb Time International Ratio 3.05 H 0.76-1.04 07/11/2016 12:10pm 07/11/2016 12:28pm THERAPUTIC RANGE=2.00-3.00 FOR ANTI-THROMBOSIS THERAPUTIC RANGE=2.50-3.50 FOR IMPLANTED VALVE Icterus Index < 2 0-7 07/11/2016 4:07pm 07/11/2016 4:36pm Chemistry Specimen Hemolysis < 15 0-25 07/11/2016 4:07pm 07/11/2016 4 :36pm 0-25: Specimen Exhibited No Hemolysis. Turbidity < 20 0-20 07/11/2016 4:07pm 07/11/2016 4:36pm Sodium Level 144 MEQ/L 134-144 07/11/2016 4:07pm 07/11/2016 4:36pm Potassium Level 5.2 MEQ/L H 3.6-5 07/11/2016 4:07pm 07/11/2016 4:36pm Chloride Level 112 MEQ/L H 98-107 07/11/2016 4:07pm 07/11/2016 4:36pm Carbon Dioxide Level 22 MEQ/L 22-30 07/11/2016 4:07pm 07/11/2016 4: 36pm Anion Gap 10 MEQ/L 5-15 07/11/2016 4:07pm 07/11/2016 4:36pm Blood Urea Nitrogen 58.0 MG/DL *H 9-20 07/11/2016 4:07pm 07/11/2016 4: 44pm Creatinine 1.7 MG/DL D H 0.8-1.5 07/11/2016 4:07pm 07/11/2016 4:45pm BUN/Creatinine Ratio 34 RATIO H 6-26 07/11/2016 4:07pm 07/11/2016 4: 36pm Glomerular Filtration Rate Calc 39 07/11/2016 4:07pm 07/11/2016 4: 36pm Glucose Level 101 MG/DL 75-110 07/11/2016 4:07pm 07/11/2016 4:36pm Calculated Osmolality 293 MOSM/KG H 261-280 07/11/2016 4:07pm 2016 4:36pm Calcium Level 8.8 MG/DL 8.4-10.2 07/11/2016 4:07pm 07/11/2016 4:36pm Phosphorus Level 5.1 MG/DL H 2.5-4.5 07/10/2016 4:38am 07/10/2016 5: 54am Total Bilirubin 0.80 MG/DL 0.20-1.30 07/09/2016 10:17pm 07/09/2016 10: 43pm Alkaline Phosphatase 64 U/L 38-126 07/09/2016 10:1707/09/2016 10: 43pm Total Protein 7.0 G/DL 6.3-8.2 07/09/2016 10:1707/09/2016 10:43pm Albumin 4.1 G/DL 3.5-5.0 07/09/2016 10:1707/09/2016 10:43pm Globulin 2.9 G/DL 2.4-3.6 07/09/2016 10:1707/09/2016 10:43pm Albumin/Globulin Ratio 1.4 RATIO 1.1-2.2 07/09/2016 10:1707/09/2016 10:43pm Aspartate Amino Transf (AST/SGOT) 27 U/L 17-59 07/09/2016 10:17pm 07/09 10:43pm Alanine Aminotransferase (ALT/SGPT) 37 U/L 21-72 07/09/2016 10:17 10:43pm VV-Gdk-E-Type Natriuretic Peptide 3610 PG/ML H 0-175 07/09/2016 10:17pm 07/09/2016 11:26pm Rule in cut points: <50 years old=450; 50-75 years old=900; >75 years old=1800; When utilizing ProBNP rule-in cut points, adjustment for impaired renal function is typically not required. Magnesium Level 2.1 MG/DL 1.6-2.3 07/10/2016 4:38am 07/10/2016 5:54am Stool Occult Blood NEGATIVE 07/11/2016 10:00am 07/11/2016 10:16am Reason Tests Not Done HEMOLYZED SPECIMEN 07/11/2016 3:54pm 2016 3:55pm Tests Not Done BMP 07/11/2016 3:54pm 07/11/2016 3:55pm Specimen Comment ([facility]) LAB TO RECOLLECT 07/11/2016 3:54pm 2016 3:55pm Urine Collection Type VOIDED-NOT CC-MIDSTR 07/09/2016 10:48pm 07/09 10:57pm Urine Color YELLOW YELLOW 07/09/2016 10:48pm 07/09/2016 10:57pm Urine Turbidity CLEAR CLEAR 07/09/2016 10:48pm 07/09/2016 10:57pm Urine Specific [place] 1.020 1.015-1.025 07/09/2016 10:48pm 2016 10:57pm Urine pH 5.0 5.0-8.0 07/09/2016 10:48pm 07/09/2016 10:57pm Urine Leukocyte Esterase NEGATIVE NEGATIVE 07/09/2016 10:48pm 2016 10:57pm Urine Nitrite NEGATIVE NEGATIVE 07/09/2016 10:48pm 07/09/2016 10: 57pm Urine Protein NEGATIVE NEGATIVE 07/09/2016 10:48pm 07/09/2016 10: 57pm Urine Glucose (UA) NEGATIVE NEGATIVE 07/09/2016 10:48pm 07/09/2016 10 :57pm Urine Ketones NEGATIVE NEGATIVE 07/09/2016 10:48pm 07/09/2016 10: 57pm Urine Urobilinogen 0.2 EU/DL NORMAL 07/09/2016 10:48pm 07/09/2016 10: 57pm Urine Bilirubin NEGATIVE NEGATIVE 07/09/2016 10:48pm 07/09/2016 10: 57pm Urine Blood NEGATIVE NEGATIVE 07/09/2016 10:48pm 07/09/2016 10:57pm Urinalysis Comment MICROSCOPIC NOT IND. 07/09/2016 10:48pm 2016 10:57pm Name: EDMUNDO FONSECA Unit #: [id number] : 1935 Sex: M DISCHARGE SUMMARY Admit Date: 07/09/16 Report #: [id number] [facility] General Date Date DATE: 07/11/16 TIME: 18:38 Attending Physician Alejandra Hernandez MD Admitting Physician Alejandra Hernandez MD Consulting Physician Admitting Diagnosis acute renal insufficiency Discharge Diagnosis . Acute renal failure, resolved 2. CHF, controlled 3. Hypertension, chronic 4. She be G2004 6. Hyperkalemia, mostly resolved 7. Dehydration, resolved Procedures None Laboratory Laboratory Tests Test 07/11/16 10:00 07/11/16 12:10 07/11/16 15:54 07/11/16 16:07 Stool Occult Blood Negative Prothromb Time International Ratio 3.05 (0.76-1.04) Specimen Comment (Misc) Lab to recollect Tests Not Done Bmp Reason Tests Not Done Hemolyzed specimen Turbidity < 20 (0-20) Sodium Level 144MEQ/L (134-144) Potassium Level 5.2MEQ/L (3.6-5) Chloride Level 112MEQ/L (98-107) Carbon Dioxide Level 22MEQ/L (22-30) Anion Gap 10MEQ/L (5-15) Blood Urea Nitrogen 58.0MG/DL (9-20) Creatinine 1.7MG/DL (0.8-1.5) Glomerular Filtration Rate Calc 39 BUN/Creatinine Ratio 34RATIO (6-26) Glucose Level 101MG/DL (75-110) Calculated Osmolality 293MOSM/KG (261-280) Calcium Level 8.8MG/DL (8.4-10.2) Icterus Index < 2 (0-7) Chemistry Specimen Hemolysis < 15 (0-25) Microbiology Not applicable History of Present Illness 81 yo M with PMH of A. Fib and CAD presented to the ED per his PCP's request for abnormal lab values. He was told his potassium was 6.5 and creatinine was 3.5 on a routine blood draw today. He has felt "cruddy" with a headache and some body aches for about 2 months now. Has a history of coronary artery disease and atrial fibrillation after having a coronary bypass in 2004. He denies CP, SOA, abdominal pain and changes in bowel habits or black stools. He reports a decreased appetite and a 10 lbs weight loss in the past 2 months. Patient was admitted for IVF, further evaluation and treatment. Hospital Course This 81-year-old gentleman came into to the hospital with complaints of acute renal failure and CHF. He also complaints of dehydration. He was dehydrated, with a also loudly of 299; he also had a GFR of only 16, which is quite close to the area where we think about dialysis. He also had hyperkalemia which was a 5.5 when he came in when necessary was 58 creatinine was 1.7. H&H was 9.6 and 28.7. We hydrated him talk to him quite a bit about limiting his caffeine in all forms including tea and coffee on his next lab work is GFR and risen to 18 and today it was up to 39 which is quite amazing. His potassium today dropped to 5.2 which is barely above normal his dehydration was resolved also he assures us he is going to start drinking water every day and avoid the caffeine which pushes up out of his body he has done quite well the hospital and is leaving in much better condition than he came in. He also says he feels much much better than when he came in he plans to follow-up with Dr. martinez or 2. He'll build make those plans easily I did spend over 30 minutes doing this discharge summary Problems: (1) Acute renal failure Status: Acute Assessment & Plan: etiology unknown. Likely due to volume depletion from decreased PO intake. Will give IVF NS at 124cc/hr overnight. Monitor UOP and BUN/ Cr. Given patients constellation of symptoms he will likely need further work up for possible underlying CA. (2) Hypertension Status: Acute Assessment & Plan: continue home meds (3) CHF (congestive heart failure) Status: Acute Assessment & Plan: will give gentle IVF and carefully monitor fluid status. Code Status Full Code Home Meds Reported Medications Pyridoxine HCl (Pyridoxine HCl) 100 Mg Tablet, 100 MG PO WL, TAB 07/10/16 Zolpidem Tartrate (Ambien) 5 Mg Tablet, 5 MG PO HS, TAB Take 1 tablet, by mouth, 1 time a day (at BEDTIME). 07/09/16 Aspirin (Aspir 81) 81 Mg Tablet.dr, 1 TAB PO DAILY, #30 TAB 5 Refills 07/09/16 Carvedilol (Carvedilol) 6.25 Mg Tablet, 1 TAB PO BIDWM, TAB BEST WITH FOOD. 07/09/16 Potassium Chloride (Klor-Con 10) 10 Meq Tablet.er, 1 TAB PO BID 07/09/16 Lisinopril (Lisinopril) 10 Mg Tablet, 10 MG PO DAILY for HYPERTENSION, TAB 07/09/16 Warfarin Sodium (Warfarin Sodium) 4 Mg Tablet, 4 MG PO 1700, TAB Take 1 tablet, by mouth, 1 time a day (at 5 pm). 03/02/15 Atorvastatin Calcium (Atorvastatin Calcium) 40 Mg Tablet, 1 TAB PO DAILY, TAB 02/05/14 Ubidecarenone (Co Q-10) 200 Mg Capsule, 200 MG PO DAILY 09/29/13 Famotidine (Famotidine) 20 Mg Tablet, 20 MG PO DAILY, TAB 0 Refills 06/04/13 Folic Acid (Folic Acid) 0.8 Mg Tablet, 400 MCG PO WL, 0 Refills 03/15/12 Finasteride (Finasteride) 5 Mg Tablet, 5 MG PO DAILY, 0 Refills 06/03/09 Allopurinol (Allopurinol) 300 Mg Tablet, 300 MG PO HS, 0 Refills 06/03/09 Discontinued Reported Medications Furosemide (Furosemide) 20 Mg Tablet, 20 MG PO DAILY, #30 05/19/14 Metoprolol Tartrate (Metoprolol Tartrate) 50 Mg Tablet, 50 MG PO BID, TAB 02/11/14 Diphenhydramine HCl (Benadryl) 25 Mg Capsule, 1 CAP PO HS Y for PRN ORDERS, CAP 12/21/14 Face to Face Encounter I met with patient on the day of dismissal and discussed follow up appointments , medications, and safety plan. Discharge Disposition Patient is discharged to his home with his . NATHANIEL MARTINEZ DO Jul 11, 2016 18:43 Procedures No known history of procedures. Encounters Encounter Location Arrival/Admit Date Discharge/Depart Date Attending Provider Discharged Inpatient (obs) [facility] 07/09/16 11:07pm 07/11/16 7 :04pm ALEJANDRA HERNANDEZ MD
--- OUTSIDE RECORDS SUMMARY | 2016-07-29 00:43 | XMS REPORT | Continuity of Care Document ---
Demographics Preferred Language Unknown Marital Status Unknown Oriental Orthodox Affiliation Unknown Race Unknown Ethnic Group Unknown Author Author [facility] Organization [facility] Address Unknown Phone Unavailable Allergies Medications Medication [...] Procedures Code [place] [address] Office or other outpatient visit for the evaluation and management of a new patient, which requires RUY MULLINS MD 09/13/2015 [id number] Office or other outpatient visit for the evaluation and management of a new patient, which requires RUY MULLINS MD 09/15/2015 60366 Office or other outpatient visit for the evaluation and management of an established patient, which RUY MULLINS MD 11/07/2015 73838 Office or other outpatient visit for the evaluation and management of an established patient, which RUY MULLINS MD 12/02/2015 43248 Office or other outpatient visit for the evaluation and management of an established patient, which RUY MULLINS MD 12/20/2015 Results Encounters ACCT No. Visit Date/Time Discharge Status Pt. Type Provider Facility Loc./Unit Complaint [id number] 09/13/2015 17:47:09 Document Registration
--- OUTSIDE RECORDS SUMMARY | 2016-07-29 00:43 | XMS REPORT | Continuity of Care Document ---
Author Author [facility] Organization [facility] Address Unknown Phone Unavailable Support Name Relationship Address Phone FREDA LERNER II, MD Caregiver [address] [place] [phone] JEN ANDREW MD Caregiver [address] [place] [phone] SILVIO FONSECA I Next Of Kin [address] [place] [address] Insurance Providers Payer Name Policy Number Subscriber Name Relationship Medicare [id number] Edmundo Fonseca 18 Self [facility] [id number] Edmundo Fonseca 18 Self Advance Directives Directive [...] Mg PO DAILY 06/03/09 03/15/10 Discontinued Fish Oil/[place]-3 Fatty Acids 1 Cap PO DAILY [...] Up Appointments: Dr Lerner , AT 11:15am ([phone]) Dr Schneider FEBRUARY 04 AT 12:50pm ([phone]) Patient Instructions: back stretching BID Durable Medical [...] F (96.8 - 99.1) Temperature (Calculated Celsius) 36.32882 degrees C (36.0 - 37.3) Temperature Source [...] 02, 2014 4:50am 11.1 % H 0-9.0 [id number] Natriuretic Peptide September 29, 2013 12:30am 1310 [...] Has specimen been collected/obtained? Y Urine Specific [place] December 29, 2013 5:46am >=1.030 H - [...] 2008 9:51am Name: EDMUNDO FONSECA Unit #: [id number] : 1935 Sex: M Loc / Svc: MED DOS: 12/29/13 Signed Report #: [id number] DIAGNOSTIC IMAGING REPORT TYPE OF EXAM: CHEST, [...] Location Date/Time Discharged Inpatient [facility] 12/29/13 7:41am Recent Diagnosis Bradycardia Pneumonia Altered mental status Back spasm New onset atrial fibrillation Volume depletion New onset atrial fibrillation
--- OUTSIDE RECORDS SUMMARY | 2016-07-29 00:44 | XMS REPORT | Continuity of Care Document ---
Author Author Ihsan [facility] LIVE Organization [facility] LIVE Address Unknown Phone Unavailable Support Name Relationship Address Phone FREDA LERNER II, MD Caregiver [address] [facility] [place] [phone] JUAN DAVID PIZANO MD Caregiver [address] [place] [phone] SILVIO FONSECA I Next Of Kin [address] [place] [address] Insurance Providers Payer Name Policy Number Subscriber Name Relationship Medicare [id number] Edmundo Fonseca 18 Self [facility] [id number] Edmundo Fonseca 18 Self Advance Directives Directive [...] Mg PO DAILY 06/03/09 03/15/10 Discontinued Fish Oil/[place]-3 Fatty Acids 1 Cap PO DAILY 06/02/09 [...] F (96.8 - 99.1) Temperature (Calculated Celsius) 36.42246 degrees C (36.0 - 37.3) Pulse Rate [...] 02, 2014 10:10am 9.6 % H 0-9.0 XB-Dco-M-Type Natriuretic Peptide June 02, 2014 10:10am 5130 [...] Has specimen been collected/obtained? Y Urine Specific [place] February 11, 2014 8:25am >=1.030 H - [...] 9:51am Name: EDMUNDO FONSECA Monique Unit #: [id number] : 1935 Sex: M Loc / Svc: ED DOS: 06/02/14 Signed Report #: [id number] DIAGNOSTIC IMAGING REPORT TYPE OF EXAM: CHEST [...] MD PROPOFOL INJ 500 MG/50ML completed 05/20/14 [id number]"RINGERS LACTATE INFUSION, UP TO 1000 CC" completed 05/20/14 Encounters Encounter Location Date/Time Departed Emergency Room [facility] 06/02/14 9:51am Recent Diagnosis
--- OUTSIDE RECORDS SUMMARY | 2016-07-29 00:44 | XMS REPORT | Continuity of Care Document ---
Author Author [facility] LIVE Organization [facility] LIVE Address Unknown Phone Unavailable Support Name Relationship Address Phone ADRIANNA KEITA MD Caregiver [facility]ULAR [facility]ARE [address] [facility] [address] [address] [place] [address] FREDA LERNER II, MD Caregiver [address] [place] [address] [phone] SILVIO FONSECA I Next Of Kin [address] [place] [address] Insurance Providers Payer Name Policy Number Subscriber Name Relationship Medicare [id number] Edmundo Fonseca 18 Self [facility] [id number] Edmundo Fonseca 18 Self Advance Directives Directive [...] Mg PO DAILY 06/03/09 03/15/10 Discontinued Fish Oil/[place]-3 Fatty Acids 1 Cap PO DAILY 06/02/09 [...] Up Appointments: Dr Lerner , AT 11:15am ([phone]) Dr Schneider FEBRUARY 04 AT 12:50pm ([phone]) Patient Instructions: back stretching BID Durable Medical [...] of your legs. 3.During office hours, call [phone] 4. After hours, please call [facility] at [phone], and have the casing wringer operator page your Surgeon IN THE EVENT OF AN EMERGENCY, seek medical care at the nearest Emergency Room Condition at time of discharge: Good Care Plan Discharge Patient: Goal: Understand discharge plan Patient Instructions: see patient instructions Plan of Care Discharge Date 01/04/14 2:24pm Disposition 02 TO [facility] Condition at Discharge Improved Instructions/Education [...] F (96.8 - 99.1) Temperature (Calculated Celsius) 36.05764 degrees C (36.0 - 37.3) Temperature Source [...] Has specimen been collected/obtained? Y Urine Specific [place] December 29, 2013 5:46am >=1.030 H - [...] January 04, 2014 4:22am < 2 0-7 PE-Lho-V-Type Natriuretic Peptide September 29, 2013 12:30am 1310 [...] 2008 9:51am Name: EDMUNDO FONSECA Unit #: [id number] : 1935 Sex: M Loc / Svc: MED DOS: 12/29/13 Signed Report #: [id number] DIAGNOSTIC IMAGING REPORT TYPE OF EXAM: CHEST, [...] MD Encounters Encounter Location Date/Time Departed Clinic [facility] 02/05/14 11:53am Discharged Inpatient [facility] 12/29/13 7:41am
--- OUTSIDE RECORDS SUMMARY | 2016-07-29 00:44 | XMS REPORT | Continuity of Care Document ---
Author Author [facility] LIVE Organization [facility] LIVE Address Unknown Phone Unavailable Support Name Relationship Address Phone MILAGROS KEYS MD Caregiver [address] [place] [address] FREDA LERNER II, MD Caregiver [address] [facility] [address] [place] [phone] SILVIO FONSECA I Next Of Kin [address] [place] [address] Insurance Providers Payer Name Policy Number Subscriber Name Relationship Medicare [id number] Edmundo Fonseca 18 Self [facility] [id number] Edmundo Fonseca 18 Self Advance Directives Directive [...] Mg PO DAILY 06/03/09 03/15/10 Discontinued Fish Oil/[place]-3 Fatty Acids 1 Cap PO DAILY 06/02/09 [...] Up Appointments: Dr Lerner , AT 11:15am ([phone]) Dr Schneider FEBRUARY 04 AT 12:50pm ([phone]) Patient Instructions: back stretching BID Durable Medical Equipment: Pt needs a cane Condition at time of discharge: Good Plan of Care Discharge Date 01/04/14 2:24pm Disposition 02 TO [facility] Condition at Discharge Improved [...] F (96.8 - 99.1) Temperature (Calculated Celsius) 36.73736 degrees C (36.0 - 37.3) Pulse Rate [...] 11, 2014 7:43am 11.5 % H 0-9.0 JM-Ali-A-Type Natriuretic Peptide February 11, 2014 7:43am 3910 [...] Has specimen been collected/obtained? Y Urine Specific [place] February 11, 2014 8:25am >=1.030 H - [...] 2008 9:51am Name: EDMUNDO FONSECA Unit #: [id number] : 1935 Sex: M Loc / Svc: ED DOS: 02/11/14 Signed Report #: [id number] DIAGNOSTIC IMAGING REPORT TYPE OF EXAM: CHEST [...] Encounters Encounter Location Date/Time Registered Emergency Room [facility] 02/11/14 7:13am Departed Clinic [facility] 02/05/14 11:53am Discharged Inpatient [facility] 12/29/13 7:41am Recent Diagnosis
--- OUTSIDE RECORDS SUMMARY | 2016-07-29 00:44 | XMS REPORT | Continuity of Care Document ---
Author Author [facility] LIVE Organization [facility] LIVE Address Unknown Phone Unavailable Support Name Relationship Address Phone FREDA LERNER II, MD Caregiver [address] [place] [address] [place] [phone] SOFI ORTIZ MD Caregiver [address] [place] [address] [place] [phone] SILVIO FONSECA I Next Of Kin [address] [place] [address] Insurance Providers Payer Name Policy Number Subscriber Name Relationship Medicare [id number] Edmundo Fonseca 18 Self [facility] [id number] Edmundo Fonseca 18 Self Advance Directives Directive [...] Mg PO DAILY 06/03/09 03/15/10 Discontinued Fish Oil/[place]-3 Fatty Acids 1 Cap PO DAILY 06/02/09 [...] F (96.8 - 99.1) Temperature (Calculated Celsius) 35.93215 degrees C (36.0 - 37.3) Temperature Source [...] Has specimen been collected/obtained? Y Urine Specific [place] February 11, 2014 8:25am >=1.030 H - [...] February 11, 2014 7:43am < 2 0-7 CN-Fdr-Y-Type Natriuretic Peptide February 11, 2014 7:43am 3910 [...]
--- OUTSIDE RECORDS SUMMARY | 2016-07-29 00:45 | XMS REPORT | Continuity of Care Document ---
Author Author Ihsan [facility] LIVE Organization [facility] LIVE Address Unknown Phone Unavailable Support Name Relationship Address Phone FREDA LERNER II, MD Caregiver [address] [place] [phone] JUAN DAVID PIZANO MD Caregiver [address] [place] [address] SILVIO FONSECA I Next Of Kin [address] [place] [address] Insurance Providers Payer Name Policy Number Subscriber Name Relationship Medicare [id number] Edmundo Fonseca 18 Self [facility] [id number] Edmundo Fonseca 18 Self Advance Directives Directive [...] Mg PO DAILY 06/03/09 03/15/10 Discontinued Fish Oil/[place]-3 Fatty Acids 1 Cap PO DAILY 06/02/09 [...] of your legs. 3.During office hours, call [phone] 4. After hours, please call [facility] at [phone], and have the cryptologic technician operator/analyst page your Surgeon IN THE EVENT OF [...] F (96.8 - 99.1) Temperature (Calculated Celsius) 36.46228 degrees C (36.0 - 37.3) Temperature Source [...] specimen been collected /obtained? Y Urine Specific [place] September 30, 2013 6:14am >=1.030 H - [...] September 29, 2013 12:30am < 2 0-7 TW-Qpv-B-Type Natriuretic Peptide September 29, 2013 12:30am 1310 [...] procedures. Encounters Encounter Location Date/Time Discharged Inpatient [facility] 09/29/13 2:41am Departed Emergency Room [facility] 09/23/13 12:56pm Recent Diagnosis Back spasm Altered mental status Back spasm
--- OUTSIDE RECORDS SUMMARY | 2016-07-29 01:31 | XMS REPORT | Continuity of Care Document ---
Author Author [facility] LIVE Organization [facility] LIVE Address Unknown Phone Unavailable Support Name Relationship Address Phone FREDA LERNER II, MD Caregiver [address] [place] [address] [place] [phone] SOFI ORTIZ MD Caregiver [address] [place] [address] [place] [phone] SILVIO FONSECA I Next Of Kin [address] [place] [address] Insurance Providers Payer Name Policy Number Subscriber Name Relationship Medicare [id number] Edmundo Fonseca 18 Self [facility] [id number] Edmundo Fonseca 18 Self Advance Directives Directive [...] Mg PO DAILY 06/03/09 03/15/10 Discontinued Fish Oil/[place]-3 Fatty Acids 1 Cap PO DAILY 06/02/09 [...] F (96.8 - 99.1) Temperature (Calculated Celsius) 35.25384 degrees C (36.0 - 37.3) Temperature Source [...] Has specimen been collected/obtained? Y Urine Specific [place] February 11, 2014 8:25am >=1.030 H - [...] February 11, 2014 7:43am < 2 0-7 GW-Sgj-M-Type Natriuretic Peptide February 11, 2014 7:43am 3910 [...]
--- OUTSIDE RECORDS SUMMARY | 2016-07-29 01:31 | XMS REPORT | Continuity of Care Document ---
Author Author [facility] LIVE Organization [facility] LIVE Address Unknown Phone Unavailable Support Name Relationship Address Phone FREDA LERNER II, MD Caregiver [address] [place] [phone] JEN ANDREW MD Caregiver [address] [place] [phone] SILVIO FONSECA I Next Of Kin [address] [place] [address] Insurance Providers Payer Name Policy Number Subscriber Name Relationship Medicare [id number] Edmundo Fonseca 18 Self [facility] [id number] Edmundo Fonseca 18 Self Advance Directives Directive [...] Mg PO DAILY 06/03/09 03/15/10 Discontinued Fish Oil/[place]-3 Fatty Acids 1 Cap PO DAILY 06/02/09 [...] Up Appointments: Dr Lerner , AT 11:15am ([phone]) Dr Schneidre FEBRUARY 04 AT 12:50pm ([phone]) Patient Instructions: back stretching BID Durable Medical [...] F (96.8 - 99.1) Temperature (Calculated Celsius) 36.73949 degrees C (36.0 - 37.3) Temperature Source [...] 02, 2014 4:50am 11.1 % H 0-9.0 OP-Qdl-N-Type Natriuretic Peptide September 29, 2013 12:30am 1310 [...] Has specimen been collected/obtained? Y Urine Specific [place] December 29, 2013 5:46am >=1.030 H - [...] 2008 9:51am Name: EDMUNDO FONSECA Unit #: [id number] : 1935 Sex: M Loc / Svc: MED DOS: 12/29/13 Signed Report #: [id number] DIAGNOSTIC IMAGING REPORT TYPE OF EXAM: CHEST, [...] procedures. Encounters Encounter Location Date/Time Discharged Inpatient [facility] 12/29/13 7:41am Recent Diagnosis Bradycardia Pneumonia Altered mental status Back spasm New onset atrial fibrillation Volume depletion New onset atrial fibrillation
--- OUTSIDE RECORDS SUMMARY | 2016-07-29 01:31 | XMS REPORT | Continuity of Care Document ---
Demographics Preferred Language Unknown Marital Status Unknown Orthodox Affiliation Unknown Race Unknown Ethnic Group Unknown Author Author [facility] Organization [facility] Address Unknown Phone Unavailable Allergies Medications Medication [...] Procedures Code [place] [address] Office or other outpatient visit for the evaluation and management of a new patient, which requires RUY MULLINS MD 09/13/2015 29134 Office or other outpatient visit for the evaluation and management of a new patient, which requires RUY MULLINS MD 09/15/2015 47268 Office or other outpatient visit for the evaluation and management of an established patient, which RUY MULLINS MD 11/07/2015 04515 Office or other outpatient visit for the evaluation and management of an established patient, which RUY MULLINS MD 12/02/2015 46227 Office or other outpatient visit for the evaluation and management of an established patient, which RUY MULLINS MD 12/20/2015 Results Encounters ACCT No. Visit Date/Time Discharge Status Pt. Type Provider Facility Loc./Unit Complaint [id number] 09/13/2015 17:47:09 Document Registration
--- OUTSIDE RECORDS SUMMARY | 2016-07-29 01:31 | XMS REPORT | Continuity of Care Document ---
Author Author [facility] LIVE Organization [facility] LIVE Address Unknown Phone Unavailable Support Name Relationship Address Phone ADRIANNA KEITA MD Caregiver CARDIOVASCULAR CARE [address] [facility] [address] [place] [address] FREDA LERNER II, MD Caregiver [address] [place] [address] [phone] SILVIO FONSECA I Next Of Kin [address] [place] [address] Insurance Providers Payer Name Policy Number Subscriber Name Relationship Medicare [id number] Edmundo Fonseca 18 Self [facility] [id number] Edmundo Fonseca 18 Self Advance Directives Directive [...] Mg PO DAILY 06/03/09 03/15/10 Discontinued Fish Oil/[place]-3 Fatty Acids 1 Cap PO DAILY 06/02/09 [...] Up Appointments: Dr Lerner , AT 11:15am ([phone]) Dr Schneider FEBRUARY 04 AT 12:50pm ([phone]) Patient Instructions: back stretching BID Durable Medical [...] of your legs. 3.During office hours, call [phone] 4. After hours, please call [facility] at [phone], and have the trimmer operator page your Surgeon IN THE EVENT OF AN EMERGENCY, seek medical care at the nearest Emergency Room Condition at time of discharge: Good Care Plan Discharge Patient: Goal: Understand discharge plan Patient Instructions: see patient instructions Plan of Care Discharge Date 01/04/14 2:24pm Disposition 02 TO [facility] Condition at Discharge [...] F (96.8 - 99.1) Temperature (Calculated Celsius) 36.64880 degrees C (36.0 - 37.3) Temperature Source [...] Has specimen been collected/obtained? Y Urine Specific [place] December 29, 2013 5:46am >=1.030 H - [...] January 04, 2014 4:22am < 2 0-7 XN-Zxz-N-Type Natriuretic Peptide September 29, 2013 12:30am 1310 [...] 2008 9:51am Name: EDMUNDO FONSECA Unit #: [id number] : 1935 Sex: M Loc / Svc: MED DOS: 12/29/13 Signed Report #: [id number] DIAGNOSTIC IMAGING REPORT TYPE OF EXAM: CHEST, [...] MD Encounters Encounter Location Date/Time Departed Clinic [facility] 02/05/14 11:53am Discharged Inpatient [facility] 12/29/13 7:41am
--- OUTSIDE RECORDS SUMMARY | 2016-07-29 01:32 | XMS REPORT | Continuity of Care Document ---
Author Author [facility] LIVE Organization [facility] LIVE Address Unknown Phone Unavailable Support Name Relationship Address Phone MILAGROS KEYS MD Caregiver [address] [place] [address] FREDA LERNER II, MD Caregiver [address] [facility] [address] [place] [phone] SILVIO FONSECA I Next Of Kin [address] [place] [address] Insurance Providers Payer Name Policy Number Subscriber Name Relationship Medicare [id number] Edmundo Fonseca 18 Self [facility] [id number] Edmundo Fonseca 18 Self Advance Directives Directive [...] Mg PO DAILY 06/03/09 03/15/10 Discontinued Fish Oil/[place]-3 Fatty Acids 1 Cap PO DAILY 06/02/09 [...] Up Appointments: Dr Lerner , AT 11:15am ([phone]) Dr Schneider FEBRUARY 04 AT 12:50pm ([phone]) Patient Instructions: back stretching BID Durable Medical Equipment: Pt needs a cane Condition at time of discharge: Good Plan of Care Discharge Date 01/04/14 2:24pm Disposition 02 TO [facility] Condition at [...] F (96.8 - 99.1) Temperature (Calculated Celsius) 36.94594 degrees C (36.0 - 37.3) Pulse Rate [...] 11, 2014 7:43am 11.5 % H 0-9.0 WQ-Nts-S-Type Natriuretic Peptide February 11, 2014 7:43am 3910 [...] Has specimen been collected/obtained? Y Urine Specific [place] February 11, 2014 8:25am >=1.030 H - [...] 2008 9:51am Name: EDMUNDO FONSECA Unit #: [id number] : 1935 Sex: M Loc / Svc: ED DOS: 02/11/14 Signed Report #: [id number] DIAGNOSTIC IMAGING REPORT TYPE OF EXAM: CHEST [...] Encounters Encounter Location Date/Time Registered Emergency Room [facility] 02/11/14 7:13am Departed Clinic [facility] 02/05/14 11:53am Discharged Inpatient [facility] 12/29/13 7:41am Recent Diagnosis
--- OUTSIDE RECORDS SUMMARY | 2016-07-29 01:32 | XMS REPORT | Continuity of Care Document ---
Author Author Ihsan [facility] LIVE Organization [facility] LIVE Address Unknown Phone Unavailable Support Name Relationship Address Phone FREDA LERNER II, MD Caregiver [address] [place] [phone] JUAN DAVID PIZANO MD Caregiver [address] [place] [id number] SILVIO FONSECA I Next Of Kin [address] [place] [address] Insurance Providers Payer Name Policy Number Subscriber Name Relationship Medicare [id number] Edmundo Fonseca 18 Self [facility] [id number] Edmundo Fonseca 18 Self Advance Directives Directive [...] Mg PO DAILY 06/03/09 03/15/10 Discontinued Fish Oil/[place]-3 Fatty Acids 1 Cap PO DAILY 06/02/09 [...] F (96.8 - 99.1) Temperature (Calculated Celsius) 36.94376 degrees C (36.0 - 37.3) Pulse Rate [...] 02, 2014 10:10am 9.6 % H 0-9.0 DR-Zzm-Z-Type Natriuretic Peptide June 02, 2014 10:10am 5130 [...] Has specimen been collected/obtained? Y Urine Specific [place] February 11, 2014 8:25am >=1.030 H - [...] 9:51am Name: EDMUNDO FONSECA Monique Unit #: [id number] : 1935 Sex: M Loc / Svc: ED DOS: 06/02/14 Signed Report #: [id number] DIAGNOSTIC IMAGING REPORT TYPE OF EXAM: CHEST [...] MD PROPOFOL INJ 500 MG/50ML completed 05/20/14 [id number]"RINGERS LACTATE INFUSION, UP TO 1000 CC" completed 05/20/14 Encounters Encounter Location Date/Time Departed Emergency Room [facility] 06/02/14 9:51am Recent Diagnosis
--- OUTSIDE RECORDS SUMMARY | 2016-07-29 01:32 | XMS REPORT | Continuity of Care Document ---
Author Author Ihsan [facility] LIVE Organization [facility] LIVE Address Unknown Phone Unavailable Support Name Relationship Address Phone FREDA LERNER II, MD Caregiver [address] [facility] [place] [phone] JUAN DAVID PIZANO MD Caregiver [address] [place] [address] SILVIO FONSECA I Next Of Kin [address] [place] [address] Insurance Providers Payer Name Policy Number Subscriber Name Relationship Medicare [id number] Edmundo Fonseca 18 Self [facility] [id number] Edmundo Fonseca 18 Self Advance Directives Directive [...] Mg PO DAILY 06/03/09 03/15/10 Discontinued Fish Oil/[place]-3 Fatty Acids 1 Cap PO DAILY 06/02/09 [...] of your legs. 3.During office hours, call [phone] 4. After hours, please call [facility] at [phone], and have the wrapper stemmer operator page your Surgeon IN THE EVENT [...] F (96.8 - 99.1) Temperature (Calculated Celsius) 36.12079 degrees C (36.0 - 37.3) Temperature Source [...] specimen been collected /obtained? Y Urine Specific [place] September 30, 2013 6:14am >=1.030 H - [...] September 29, 2013 12:30am < 2 0-7 AV-Dew-M-Type Natriuretic Peptide September 29, 2013 12:30am 1310 [...] procedures. Encounters Encounter Location Date/Time Discharged Inpatient [facility] 09/29/13 2:41am Departed Emergency Room [facility] 09/23/13 12:56pm Recent Diagnosis Back spasm Altered mental status Back spasm
--- NOTE | 2016-07-29 01:36 | NUR ---
ORTHOSTATIC VITALS CHARTED WITHIN VITALS INTERVENTION - NOTED LAYING/SITTING/STANDING IN BP COMMENTS FIELD.
--- NOTE | 2016-07-29 01:43 | ERPDOC ---
Departure Disposition Decision Date: Jul 29, 2016 Disposition Decision Time: 03:40 Disposition: 02 TO [facility] Impression Impression: 1) ACUTE RENAL INSUFFICIENCY 2) ANEMIA Impression: Primary Impression: Acute renal insufficiency Additional Impression: Anemia Anemia type: unspecified type Qualified Codes: D64.9 - Anemia, unspecified Condition: Improved Seen By: Physician only Referrals: BIJAL ATWOOD MD (Family) Problems/Meds/Labs Reviewed?: Yes Medications reviewed and manag: Yes Follow up care ordered?: No (OBSERVATION) Mental Status: Alert, Oriented HPI - General Medical General Chief Complaint: General Stated Complaint: KIDNEY PAIN Time Seen by Provider: 00:55 Source: patient, family (Son and ) HPI - General Medical Initial Comments 81 YO WM who presents to ER for "feeling kind of dizzy and strange." Patient reports that he and his were visiting family earlier in the evening and when he returned home he "felt kind of strange." Patient is vague historian. He denies chest pain, shortness of breath, nausea, vomiting or diarrhea. No abdominal pain, heart palpitations or other complaints. No black, tarry or bloody stools. No headache or acute vision changes. Patient reports that he was recently hospitalized with "kidney problems." Patient states he followed up with his doctor after dismissal and "everything was okay." He is not on dialysis. Occurred At: home Pain Scale: Now: 0/10 (denies pain) Associated Symptoms: malaise, DENIES: chest pain, cough, fever/chills, headaches, syncope Allergies: Coded Allergies: carisoprodol (Verified Allergy, Severe, UNRESPONSIVE, 07/29/16) Sulfa (Sulfonamide Antibiotics) (Verified Allergy, Unknown, UNKNOWN, ) morphine (Verified Adverse Reaction, Unknown, HALLUCINATIONS, 07/29/16) Past History Past Medical History Metabolic: gout, hypercholesterolemia, hypertension ENMT: sleep apnea Cardiac: A-fib, CAD, CHF GI: GERD, ulcers Male: BPH, kidney stones, renal insufficiency Musculoskeletal: back pain, osteoarthritis Hematologic: anemia Psychological: depression Surgical History General: appendix, back, tonsils Cardiac: cardiac bypass, cardiac stent, pacemaker Joint: carpal tunnel, elbow, knee Family History Family PMH: FOUND: CAD Vaccines Hx Influenza Vaccination: Yes (Jan 2016) Hx Pneumococcal Vaccination: Yes (April 2013) Social History Substance Use Type: does not use Sexuality: female partner Housing: house Household Members: spouse Current Occupational Status: retired Review of Systems Constitutional Constitutional: dizziness, fatigue, weakness, DENIES: chills, fever, syncope Eyes General: photophobia, DENIES: erythema, exudate Vision: DENIES: blurring, double vision ENMT Sinuses: DENIES: congestion Nose: DENIES: nosebleeds Mouth/Throat: DENIES: change in swallowing, painful swallowing, sore throat Cardiovascular Cardiac: DENIES: chest pain, dyspnea on exertion Rhythm/Rate: DENIES: irregular beat, palpitations Pulmonary Respiratory: DENIES: cough, dyspnea GI Upper Abdomen: DENIES: vomiting Lower Abdomen: DENIES: blood in stool, constipation, diarrhea General: DENIES: burning, dysuria, frequency, hematuria, pain, urgency Musculoskeletal General: DENIES: joint pain, joint swelling Neurological General: DENIES: seizures, syncope Hematologic/Lymphatic Hematologic/Lymphatic: anemia, DENIES: bleeding gums, frequent nosebleeds Physical Exam General General Nourishment: well nourished, well developed, appears stated age, no acute distress Vitals and Pain First Documented Vital Signs Date Time Temp Pulse Resp B/P Pulse Ox O2 Delivery O2 Flow Rate FiO2 07/29/16 00:45 98.5 60 14 114/58 98 Room Air Weight: Kilograms: 94.000 Height (feet): 5 Height (inches): 9.00 Triage Pain Scale: Normal Exams: Head: Normocephalic w/o trauma Eyes: Pupils are PERRLA w/ EOMI, No scleral icterus ENMT: No facial trauma, nasal exudates, pharyngeal erythema Chest/Resp: Clear all besnon, with good airflow, and symmetry bilaterally CV: Regular rate and rhythm, without murmur or gallop, Pulses 2+ all extremities, capillary refill, <2 seconds all ext. Abdomen: Bowel sounds positive, soft, non-tender, non-distended, no hepatosplenomegaly Lymphatic: No lymphadenopathy, or lymphedema noted Integumentary: No rashes, hives, or bruising noted, hair and nails, without abnormality Neurologic: Patient is alert, and oriented, cranial nerves, motor/sensory/ cerebellar, exams w/o gross deficits Psychiatric: Patient exhibits, appropriate attention, emotion and affect Differential Diagnoses Considering: Acute LA, CVA, Depression, Hypo/Hyperglycemia, Hypo/Hyperkalemia, Hypo/Hypernatremia, Intracranial Hemorrhage, Metabolic, TIA, UTI Progress Results/Orders Orders Procedure Category Date Status Time Orthostatic Bp/Pulse EDM 07/29/16 Transmitted 01:34 Cbc W/Auto LAB 07/29/16 Complete Diff-Reflex Manual Cmp - Comprehensive LAB 07/29/16 Complete Metabolic Ua, Dip Wreflex LAB 07/29/16 Complete Microsc & Atmospheric Drier Tender 01:34 Iv Lock (Ed Only) EDM 07/29/16 Transmitted 01:34 EKG EKG 07/29/[address] Head W/O Contrast CT 07/29/16 Taken 01:35 Tsh - Thyroid Stim LAB 07/29/16 Complete Hormone Chest 1 View RAD 07/29/16 Taken 01:36 Normal Saline (Normal PHA 07/29/16 In Process Saline Iv) 01:45 Normal Saline (Normal PHA 07/29/16 Complete Saline Iv) 03:00 INR LAB 07/29/16 Complete Lab Results Laboratory Tests Test 07/29/16 01:15 07/29/16 02:09 07/29/16 02:52 Glucometer 105mg/dL White Blood Count 10.5T/MM3 Red Blood Count 2.82M/MM3 Hemoglobin 9.2GM/DL Hematocrit 28.0% Mean Corpuscular Volume 99.3UM3 Mean Corpuscular Hemoglobin 32.6UUG Mean Corpuscular Hemoglobin Concent 32.9GM/DL RDW Standard Deviation 52.4FL Platelet Count 172T/MM3 Mean Platelet Volume 9.3UM3 Immature Granulocyte % (Auto) 0.3% Neutrophils (%) (Auto) 72.8% Lymphocytes (%) (Auto) 12.0% Monocytes (%) (Auto) 13.1% Eosinophils (%) (Auto) 1.5% Basophils (%) (Auto) 0.3% Absolute Immature Granulocyte (auto 0.03T/MM3 Absolute Neutrophils (auto) 7.6T/MM3 Absolute Lymphocytes (auto) 1.3T/MM3 Absolute Monocytes (auto) 1.4T/MM3 Absolute Eosinophils (auto) 0.2T/MM3 Absolute Basophils (auto) 0.0T/MM3 Prothromb Time International Ratio 2.19 Turbidity < 20 Sodium Level 140MEQ/L Potassium Level 5.0MEQ/L Chloride Level 100MEQ/L Carbon Dioxide Level 23MEQ/L Anion Gap 17MEQ/L Blood Urea Nitrogen 66.0MG/DL Creatinine 2.8MG/DL Glomerular Filtration Rate Calc 22 BUN/Creatinine Ratio 24RATIO Glucose Level 104MG/DL Calculated Osmolality 288MOSM/KG Calcium Level 9.3MG/DL Total Bilirubin 0.70MG/DL Icterus Index < 2 Aspartate Amino Transf (AST/SGOT) 34U/L Alanine Aminotransferase (ALT/SGPT) 39U/L Alkaline Phosphatase 72U/L Total Protein 6.8G/DL Albumin 4.1G/DL Globulin 2.7G/DL Albumin/Globulin Ratio 1.5RATIO Thyroid Stimulating Hormone (TSH) 3.38MIU/L Chemistry Specimen Hemolysis < 15 Urine Collection Type Cleancatch-midstream Urine Color Yellow Urine Turbidity Clear Urine pH 5.5 Urine Specific [place] 1.010 Urine Protein Trace Urine Glucose (UA) Negative Urine Ketones Negative Urine Blood Trace-intact Urine Nitrite Negative Urine Bilirubin Negative Urine Urobilinogen 0.2EU/DL Urine Leukocyte Esterase Negative Urinalysis Comment Microscopic not ind. Medications Current ED Medications Sodium Chloride 1,000 ml @ 150 mls/hr Q6H40M ONCE IV Last administered on 07/29t 02:13; Start 07/29/16 at 01:45; Stop 07/29/16 at 08:24 Sodium Chloride (Normal Saline IV) 1,000 ml @ 0 mls/hr Q0M ONCE IV ; Start at 03:00; Stop 07/29/16 at 03:01; Status DC Progress Progress 0330: Patient reports feeling "better than when I came in here." EKG EKG : Rate: 60-100 (66 bpm) Rhythm: other (paced) ST/T: non-specific changes Interpreted by: signing physician Consult/PCP Consult/PCP : Physician Contacted: Dr. Johnson (hospitalist) Time Called: 03:39 Time of first response: 03:40 Type of discussion: Admit Discussion/PCP Discussion Details Discussed case with Dr. Johnson including recent hospitalization and lab values at that time as well as current lab data. Dr. Johnson will OBS patient for IV hydration and to monitor of kidney function Xray Xray : Xray: CXR Portable (MILD CARDIAC ENLARGEMENT. NO DEFINITE CONSOLIDATION OR EFFUSION) Interpretation: Interpreted by Me CT CT : CT: Head no contrast (No acute intracranial abnormality) Interpretation: Interpreted by Me, Faxed Report JEN ANDREW MD Jul 29, 2016 01:43
[2016-07-29] MEDS ORDERED: NORMAL SALINE 1,000 ML IV ONE ×2 (01:45→03:00)
[2016-07-29 02:13] LABS: BASOPHILS % (AUTO) 0.3 % (0-2); EOSINOPHILS # (AUTO) 0.2 T/MM3 (0-0.5); EOSINOPHILS % (AUTO) 1.5 % (0-4); HGB - HEMOGLOBIN 9.2 GM/DL (13.5-17.5); IMMATURE GRANULOCYTE # (AUTO) 0.03 T/MM3 (0.00-0.03); IMMATURE GRANULOCYTE % (AUTO) 0.3 % (0.0-0.5); LYMPHOCYTES # (AUTO) 1.3 T/MM3 (1-4.8); MEAN CORPUSCULAR HGB 32.6 UUG (26-34); MEAN CORPUSCULAR HGB CONC(MCHC 32.9 GM/DL (31-37); MEAN CORPUSCULAR VOLUME 99.3 UM3 (80-100); MEAN PLATELET VOLUME 9.3 UM3 (9.4-12.4); MONOCYTES # (AUTO) 1.4 T/MM3 (0-0.8); MONOCYTES % (AUTO) 13.1 % (0-9.0); NEUTROPHILS #(AUTO)-ABSOLUTE 7.6 T/MM3 (1.8-7.7); NEUTROPHILS % (AUTO) 72.8 % (33-66); RED BLOOD COUNT 2.82 M/MM3 (4.50-5.90); WBC - WHITE BLOOD COUNT 10.5 T/MM3 (4.5-11.0)
--- NOTE | 2016-07-29 02:17 | NUR ---
IMAGING PT TO IMAGING VIA CART AT THIS TIME.
[2016-07-29 02:23] LABS: ALBUMIN 4.1 G/DL (3.5-5.0); ALBUMIN/GLOBULIN RATIO 1.5 RATIO (1.1-2.2); ALKALINE PHOSPHATASE 72 U/L (38-126); ALT (SGPT) 39 U/L (21-72); ANION GAP 17 MEQ/L (5-15); AST (SGOT) 34 U/L (17-59); BUN/CREATININE RATIO 24 RATIO (6-26); CALCIUM 9.3 MG/DL (8.4-10.2); CHLORIDE 100 MEQ/L (98-107); CO2 - CARBON DIOXIDE 23 MEQ/L (22-30); CREATININE 2.8 MG/DL (0.8-1.5); GLOMERULAR FILTRATION RATE 22; GLUCOSE 104 MG/DL (75-110); SODIUM 140 MEQ/L (134-144); TOTAL PROTEIN 6.8 G/DL (6.3-8.2)
--- NOTE | 2016-07-29 02:36 | NUR ---
IMAGING PT RETURN TO ROOM FROM IMAGING VIA CART.
[2016-07-29 02:53] LABS: THYROID STIM HORMONE-TSH 3.38 MIU/L (0.47-4.68)
[2016-07-29 03:17] LABS: BLOOD, URINE TRACE-INTACT (NEGATIVE); COLOR,URINE YELLOW (YELLOW); LEUKOCYTE ESTERASE ,URINE NEGATIVE (NEGATIVE); NITRITE,URINE NEGATIVE (NEGATIVE); UROBILINOGEN,URINE 0.2 EU/DL (NORMAL)
--- NOTE | 2016-07-29 03:18 | NUR ---
STATUS PT RESTING ON CART. EYES CLOSED. WILL ANSWER APPROPRIATELY WHEN SPOKEN TO. DENIES NEEDS AT THIS TIME. FAMILY AT BEDSIDE.
[2016-07-29 03:50] LABS: INR 2.19 (0.76-1.04); PROTHROMBIN TIME 23.9 SEC (9.31-12.49)
--- OUTSIDE RECORDS SUMMARY | 2016-07-29 03:57 | XMS REPORT | Continuity of Care Document ---
Author Author [facility] Organization [facility] Address Unknown Phone Unavailable Support Name Relationship Address Phone FREDA LERNER II, MD Caregiver [address] [place] [phone] JEN ANDREW MD Caregiver [address] [place] [phone] SILVIO FONSECA I Next Of Kin [address] [place] [address] Insurance Providers Payer Name Policy Number Subscriber Name Relationship Medicare [id number] Edmundo Fonseca [address] [facility] [id number] Edmundo Fonseca 18 Self Advance Directives Directive [...] Mg PO DAILY 06/03/09 03/15/10 Discontinued Fish Oil/[place]-3 Fatty Acids 1 Cap PO DAILY 06/02/09 [...] Up Appointments: Dr Lerner , AT 11:15am ([phone]) Dr Schneider FEBRUARY 04 AT 12:50pm ([phone]) Patient Instructions: back stretching BID Durable Medical [...] F (96.8 - 99.1) Temperature (Calculated Celsius) 36.48055 degrees C (36.0 - 37.3) Temperature Source [...] 02, 2014 4:50am 11.1 % H 0-9.0 MT-Hgr-R-Type Natriuretic Peptide September 29, 2013 12:30am 1310 [...] Has specimen been collected/obtained? Y Urine Specific [place] December 29, 2013 5:46am >=1.030 H - [...] 2008 9:51am Name: EDMUNDO FONSECA Unit #: [id number] : 1935 Sex: M Loc / Svc: MED DOS: 12/29/13 Signed Report #: [id number] DIAGNOSTIC IMAGING REPORT TYPE OF EXAM: CHEST, [...] procedures. Encounters Encounter Location Date/Time Discharged Inpatient [facility] 12/29/13 7:41am Recent Diagnosis Bradycardia Pneumonia Altered mental status Back spasm New onset atrial fibrillation Volume depletion New onset atrial fibrillation
--- OUTSIDE RECORDS SUMMARY | 2016-07-29 03:57 | XMS REPORT | Continuity of Care Document ---
Demographics Preferred Language Unknown Marital Status Unknown Muslim Affiliation Unknown Race Unknown Ethnic Group Unknown Author Author [facility] Organization [facility] Address Unknown Phone Unavailable Allergies Medications Medication [...] Procedures Code [place] [address] Office or other outpatient visit for the evaluation and management of a new patient, which requires RUY MULLINS MD 09/13/2015 68778 Office or other outpatient visit for the evaluation and management of a new patient, which requires RUY MULLINS MD 09/15/2015 09869 Office or other outpatient visit for the evaluation and management of an established patient, which RUY MULLINS MD 11/07/2015 83124 Office or other outpatient visit for the evaluation and management of an established patient, which RUY MULLINS MD 12/02/2015 37479 Office or other outpatient visit for the evaluation and management of an established patient, which RUY MULLINS MD 12/20/2015 Results Encounters ACCT No. Visit Date/Time Discharge Status Pt. Type Provider Facility Loc./Unit Complaint [id number] 09/13/2015 17:47:09 Document Registration
--- OUTSIDE RECORDS SUMMARY | 2016-07-29 03:58 | XMS REPORT | Continuity of Care Document ---
Author Author [facility] Organization [facility] Address Unknown Phone Unavailable Support Name Relationship Address Phone ADRIANNA KEITA MD Caregiver [facility] [address] [place] [address] FREDA LERNER II, MD Caregiver [address] [place] [address] [phone] SILVIO FONSECA I Next Of Kin [address] [place] [address] Insurance Providers Payer Name Policy Number Subscriber Name Relationship Medicare [id number] Edmundo Fonseca 18 Self [facility] [id number] Edmundo Fonseca 18 Self Advance Directives Directive [...] Mg PO DAILY 06/03/09 03/15/10 Discontinued Fish Oil/[place]-3 Fatty Acids 1 Cap PO DAILY 06/02/09 [...] Up Appointments: Dr Lerner , AT 11:15am ([phone]) Dr Schneider FEBRUARY 04 AT 12:50pm ([phone]) Patient Instructions: back stretching BID Durable Medical [...] of your legs. 3.During office hours, call [phone] 4. After hours, please call [facility] at [phone], and have the mac operator page your Surgeon IN THE EVENT OF AN EMERGENCY, seek medical care at the nearest Emergency Room Condition at time of discharge: Good Care Plan Discharge Patient: Goal: Understand discharge plan Patient Instructions: see patient instructions Plan of Care Discharge Date 01/04/14 2:24pm Disposition 02 TO [facility] Condition at [...] F (96.8 - 99.1) Temperature (Calculated Celsius) 36.51676 degrees C (36.0 - 37.3) Temperature Source [...] Has specimen been collected/obtained? Y Urine Specific [place] December 29, 2013 5:46am >=1.030 H - [...] January 04, 2014 4:22am < 2 0-7 ZQ-Khc-L-Type Natriuretic Peptide September 29, 2013 12:30am 1310 [...] 2008 9:51am Name: EDMUNDO FONSECA Unit #: [id number] : 1935 Sex: M Loc / Svc: MED DOS: 12/29/13 Signed Report #: [id number] DIAGNOSTIC IMAGING REPORT TYPE OF EXAM: CHEST, [...] MD Encounters Encounter Location Date/Time Departed Clinic [facility] 02/05/14 11:53am Discharged Inpatient [facility] 12/29/13 7:41am
--- OUTSIDE RECORDS SUMMARY | 2016-07-29 03:58 | XMS REPORT | Continuity of Care Document ---
Author Author [facility] Organization [facility] Address Unknown Phone Unavailable Support Name Relationship Address Phone FREDA LERNER II, MD Caregiver [address] [place] [address] [place] [phone] SOFI ORTIZ MD Caregiver [address] [place] [address] [place] [phone] SILVIO FONSECA I Next Of Kin [address] [place] [address] Insurance Providers Payer Name Policy Number Subscriber Name Relationship Medicare [id number] Edmundo Fonseca 18 Self [facility] [id number] Edmundo Fonseca 18 Self Advance Directives Directive [...] Mg PO DAILY 06/03/09 03/15/10 Discontinued Fish Oil/[place]-3 Fatty Acids 1 Cap PO DAILY 06/02/09 [...] F (96.8 - 99.1) Temperature (Calculated Celsius) 35.00073 degrees C (36.0 - 37.3) Temperature Source [...] 7:56pm 0.0 T/MM3 N 0-0.5 COMMENT CALL ELRNER IF ABNORMAL Eosinophils % (Manual) September 29, [...] Has specimen been collected/obtained? Y Urine Specific [place] February 11, 2014 8:25am >=1.030 H - [...] February 11, 2014 7:43am < 2 0-7 LF-Rok-B-Type Natriuretic Peptide February 11, 2014 7:43am 3910 [...]
--- OUTSIDE RECORDS SUMMARY | 2016-07-29 03:58 | XMS REPORT | Continuity of Care Document ---
Author Author [facility] Organization [facility] Address Unknown Phone Unavailable Support Name Relationship Address Phone FREDA LERNER II, MD Caregiver [address] [place] [phone] JUAN DAVID PIZANO MD Caregiver [address] [place] [phone] SILVIO FONSECA I Next Of Kin [address] [place] [address] Insurance Providers Payer Name Policy Number Subscriber Name Relationship Medicare [id number] Edmundo Fonseca 18 Self [facility] [id number] Edmundo Fonseca 18 Self Advance Directives Directive [...] Mg PO DAILY 06/03/09 03/15/10 Discontinued Fish Oil/[place]-3 Fatty Acids 1 Cap PO DAILY 06/02/09 [...] F (96.8 - 99.1) Temperature (Calculated Celsius) 36.71851 degrees C (36.0 - 37.3) Pulse Rate [...] 02, 2014 10:10am 9.6 % H 0-9.0 RE-Csd-V-Type Natriuretic Peptide June 02, 2014 10:10am 5130 [...] Has specimen been collected/obtained? Y Urine Specific [place] February 11, 2014 8:25am >=1.030 H - [...] 9:51am Name: EDMUNDO FONSECA Monique Unit #: [id number] : 1935 Sex: M Loc / Svc: ED DOS: 06/02/14 Signed Report #: [id number] DIAGNOSTIC IMAGING REPORT TYPE OF EXAM: CHEST [...] MD PROPOFOL INJ 500 MG/50ML completed 05/20/14 [id number]"RINGERS LACTATE INFUSION, UP TO 1000 CC" completed 05/20/14 Encounters Encounter Location Date/Time Departed Emergency Room [facility] 06/02/14 9:51am Recent Diagnosis
--- OUTSIDE RECORDS SUMMARY | 2016-07-29 03:58 | XMS REPORT | Continuity of Care Document ---
Author Author [facility] Organization [facility] Address Unknown Phone Unavailable Support Name Relationship Address Phone MILAGROS KEYS MD Caregiver [address] [place] [address] FREDA LERNER II, MD Caregiver [address] [facility] [address] [place] [phone] SILVIO FONSECA I Next Of Kin [address] [place] [address] Insurance Providers Payer Name Policy Number Subscriber Name Relationship Medicare [id number] Edmundo Fonseca 18 Self [facility] [id number] Edmundo Fonseca 18 Self Advance Directives Directive [...] Mg PO DAILY 06/03/09 03/15/10 Discontinued Fish Oil/[place]-3 Fatty Acids 1 Cap PO DAILY 06/02/09 [...] Up Appointments: Dr Lerner , AT 11:15am ([phone]) Dr Schneider FEBRUARY 04 AT 12:50pm ([phone]) Patient Instructions: back stretching BID Durable Medical Equipment: Pt needs a cane Condition at time of discharge: Good Plan of Care Discharge Date 01/04/14 2:24pm Disposition 02 TO [facility] Condition [...] F (96.8 - 99.1) Temperature (Calculated Celsius) 36.01359 degrees C (36.0 - 37.3) Pulse Rate [...] 11, 2014 7:43am 11.5 % H 0-9.0 JH-Skh-Q-Type Natriuretic Peptide February 11, 2014 7:43am 3910 [...] Has specimen been collected/obtained? Y Urine Specific [place] February 11, 2014 8:25am >=1.030 H - [...] 2008 9:51am Name: EDMUNDO FONSECA Unit #: [id number] : 1935 Sex: M Loc / Svc: ED DOS: 02/11/14 Signed Report #: [id number] DIAGNOSTIC IMAGING REPORT TYPE OF EXAM: CHEST [...] Encounters Encounter Location Date/Time Registered Emergency Room [facility] 02/11/14 7:13am Departed Clinic [facility] 02/05/14 11:53am Discharged Inpatient [facility] 12/29/13 7:41am Recent Diagnosis
--- OUTSIDE RECORDS SUMMARY | 2016-07-29 03:59 | XMS REPORT | Continuity of Care Document ---
Author Author [facility] Organization [facility] Address Unknown Phone Unavailable Support Name Relationship Address Phone FREDA LERNER II, MD Caregiver [address] [place] [phone] JUAN DAVID PIZANO MD Caregiver [address] [place] [address] SILVIO FONSECA I Next Of Kin [address] [place] [address] Insurance Providers Payer Name Policy Number Subscriber Name Relationship Medicare [id number] Edmundo Fonseca 18 Self [facility] [id number] Edmundo Fonseca 18 Self Advance Directives Directive [...] Mg PO DAILY 06/03/09 03/15/10 Discontinued Fish Oil/[place]-3 Fatty Acids 1 Cap PO DAILY 06/02/09 [...] of your legs. 3.During office hours, call [phone] 4. After hours, please call [facility] at [phone], and have the rubber production machine operator page your Surgeon IN THE [...] F (96.8 - 99.1) Temperature (Calculated Celsius) 36.99503 degrees C (36.0 - 37.3) Temperature Source [...] specimen been collected /obtained? Y Urine Specific [place] September 30, 2013 6:14am >=1.030 H - [...] September 29, 2013 12:30am < 2 0-7 HS-[place]-G-Type Natriuretic Peptide September 29, 2013 12:30am 1310 [...] procedures. Encounters Encounter Location Date/Time Discharged Inpatient [facility] 09/29/13 2:41am Departed Emergency Room [facility] 09/23/13 12:56pm Recent Diagnosis Back spasm Altered mental status Back spasm
[2016-07-29] MEDS ORDERED: HYDROCODONE/APAP 5 mg/325 mg TABLET PO PRN (04:00)
[2016-07-29] MEDS ORDERED: ONDANSETRON 4mg/2ml INJECTION IV PRN (04:00)
--- NOTE | 2016-07-29 04:15 | NUR ---
ADMIT PT TO MED UNIT 159 VIA CART. PT TRANSFERRED FROM CART TO BED WITH STAND-BY ASSIST. GAIT STABLE, NO SIGN OF DISTRESS. RN TO ASSUME CARE AT BEDSIDE.
--- NOTE | 2016-07-29 04:15 | NUR ---
Admit Pt came via cart from ED. In no apparent distress. Oriented to hospital environment. Denies needs at this time.
[2016-07-29] MEDS: NORMAL SALINE 1,000 ML IV SCH ×3 (04:41→18:02)
--- NOTE | 2016-07-29 05:21 | HPPDOC ---
MALIKA JOSHI MD 07/29/16 0516: HPI - Adult Date DATE: 07/29/16 TIME: 05:12 General Chief Complaint: weakness, dizziness History of Present Illness This is an 81-year-old male who lives independently with his . The patient has a history congestive heart failure with atrial fibrillation. The patients on chronic diuretic therapy. The patient was admitted back in June for acute renal failure. This is happening before. The patient was treated for approximately 3 days with a discharge creatinine of 1.7. The patient has onset of increasing dizziness and weakness over the past 3 days. Patient presents to the emergency department and workup indicated recurrence of acute renal failure. The patient is now to be admitted to the hospital for further assessment and treatment of renal failure the patient had no fever chills or sweats. There has been some anorexia. Patient minimizes this but this is reported through the ER. The patient denies increased GI loss including no diarrhea, no nausea or vomiting, the patient has had decreased by mouth intake though. Past Medical History Past Medical History a. fib CAD CHF Surgical History Patient's Surgical History: PPM, CABG Current Medications Home Meds Active Scripts Furosemide (Furosemide) 20 Mg Tablet, 1 TAB PO DAILY for 30 Days, #30 TAB 10 Refills Prov:NATHANIEL MARTINEZ DO 07/11/16 Reported Medications Pyridoxine HCl (Pyridoxine HCl) 100 Mg Tablet, 100 MG PO WL, TAB 07/10/16 Zolpidem Tartrate (Ambien) 5 Mg Tablet, 5 MG PO HS, TAB Take 1 tablet, by mouth, 1 time a day (at BEDTIME). 07/09/16 Aspirin (Aspir 81) 81 Mg Tablet.dr, 1 TAB PO DAILY, #30 TAB 5 Refills 07/09/16 Carvedilol (Carvedilol) 6.25 Mg Tablet, 1 TAB PO BIDWM, TAB BEST WITH FOOD. 07/09/16 Potassium Chloride (Klor-Con 10) 10 Meq Tablet.er, 1 TAB PO BID 07/09/16 Lisinopril (Lisinopril) 10 Mg Tablet, 10 MG PO DAILY for HYPERTENSION, TAB 07/09/16 Warfarin Sodium (Warfarin Sodium) 4 Mg Tablet, 4 MG PO 1700, TAB Take 1 tablet, by mouth, 1 time a day (at 5 pm). 03/02/15 Atorvastatin Calcium (Atorvastatin Calcium) 40 Mg Tablet, 1 TAB PO DAILY, TAB 02/05/14 Ubidecarenone (Co Q-10) 200 Mg Capsule, 200 MG PO DAILY 09/29/13 Famotidine (Famotidine) 20 Mg Tablet, 20 MG PO DAILY, TAB 0 Refills 06/04/13 Folic Acid (Folic Acid) 0.8 Mg Tablet, 400 MCG PO WL, 0 Refills 03/15/12 Finasteride (Finasteride) 5 Mg Tablet, 5 MG PO DAILY, 0 Refills 06/03/09 Allopurinol (Allopurinol) 300 Mg Tablet, 300 MG PO HS, 0 Refills 06/03/09 Allergies: Coded Allergies: carisoprodol (Verified Allergy, Severe, UNRESPONSIVE, 07/29/16) Sulfa (Sulfonamide Antibiotics) (Verified Allergy, Unknown, UNKNOWN, ) morphine (Verified Adverse Reaction, Unknown, HALLUCINATIONS, 07/29/16) Family History Family History: Patient denies HX of cancer Social History Smoking Status: Never smoker Substance Use Type: does not use Alcohol Intake: none Marital Status: Sexuality: female partner Housing: house Household Members: spouse Current Occupational Status: retired Advance Directives: Yes DPOA for Healthcare Only (Christiano Fonseca (son)) Review of Systems All Other Systems All Other Systems: Reviewed (remainder of 10-point ROS Neg.) Comments The patient denies any headache, denies any fever chills or sweats, denies any sores in his mouth, denies any dysphagia, denies any odynophagia, the patient has decreased appetite, patient reports adequate liquid intake but this is not confirmed by information provided by ER, patient denies any emesis, denies any shortness of breath, has an occasional cough nonproductive, no fever chills or sweats, patient denies any abdominal pain, has nausea without emesis, patient denies any change in bowel movement, a 10 point review of systems is otherwise negative except for described above Physical Exam General General Nourishment: well nourished, well developed, apparent age, adult General Body Habitus: well groomed Vital Signs Vital Signs Date Time Temp Pulse Resp B/P Pulse Ox O2 Delivery O2 Flow Rate FiO2 07/29/16 04:25 98.5 62 18 103/62 98 Room Air Height (Feet): 5 Height (Inches): 8.00 Telemetry Rhythm: Sinus Rhythm Eyes Brief: FOUND: EOMI, NOT FOUND: other, scleral icterus, trauma Neck Brief: FOUND: midline, NOT FOUND: JVD, nuchal rigidity, other, spasm, tenderness, tracheal deviation Respiratory Brief: FOUND: clear all benson, equal bilaterally, symmetrical, NOT FOUND: other, rales, spasm, tenderness, wheezes Cardiovascular (brief) Cardiac Brief: FOUND: regular rate, regular rhythm, NOT FOUND: click, gallop, murmur, other, pedal edema, peripheral edema, rub Capillary Refill: <2 sec Abdomen (brief) Abdominal Brief: FOUND: BS normo active x4, soft, NOT FOUND: distended, tender Musculoskeletal (brief) Musculoskeletal Brief: NOT FOUND: deformity, extremities move equally, loss of motion, other, spasm, tenderness Integumentary (brief) Integumentary Brief: FOUND: dry, pink, warm Neurologic (brief) Comments no defitcit Neurologic RN Documented GCS Eye Opening: (4)Spontaneous Verbal: (5)Oriented Motor: (6)Obeys Commands Total: Psychiatric (brief) FOUND: alert, attentive, normal affect, oriented Laboratory Laboratory Tests Test 07/29/16 01:15 07/29/16 02:09 07/29/16 02:52 Glucometer 105mg/dL White Blood Count 10.5T/MM3 Red Blood Count 2.82M/MM3 Hemoglobin 9.2GM/DL Hematocrit 28.0% Mean Corpuscular Volume 99.3UM3 Mean Corpuscular Hemoglobin 32.6UUG Mean Corpuscular Hemoglobin Concent 32.9GM/DL RDW Standard Deviation 52.4FL Platelet Count 172T/MM3 Mean Platelet Volume 9.3UM3 Immature Granulocyte % (Auto) 0.3% Neutrophils (%) (Auto) 72.8% Lymphocytes (%) (Auto) 12.0% Monocytes (%) (Auto) 13.1% Eosinophils (%) (Auto) 1.5% Basophils (%) (Auto) 0.3% Absolute Immature Granulocyte (auto 0.03T/MM3 Absolute Neutrophils (auto) 7.6T/MM3 Absolute Lymphocytes (auto) 1.3T/MM3 Absolute Monocytes (auto) 1.4T/MM3 Absolute Eosinophils (auto) 0.2T/MM3 Absolute Basophils (auto) 0.0T/MM3 Prothromb Time International Ratio 2.19 Turbidity < 20 Sodium Level 140MEQ/L Potassium Level 5.0MEQ/L Chloride Level 100MEQ/L Carbon Dioxide Level 23MEQ/L Anion Gap 17MEQ/L Blood Urea Nitrogen 66.0MG/DL Creatinine 2.8MG/DL Glomerular Filtration Rate Calc 22 BUN/Creatinine Ratio 24RATIO Glucose Level 104MG/DL Calculated Osmolality 288MOSM/KG Calcium Level 9.3MG/DL Total Bilirubin 0.70MG/DL Icterus Index < 2 Aspartate Amino Transf (AST/SGOT) 34U/L Alanine Aminotransferase (ALT/SGPT) 39U/L Alkaline Phosphatase 72U/L Total Protein 6.8G/DL Albumin 4.1G/DL Globulin 2.7G/DL Albumin/Globulin Ratio 1.5RATIO Thyroid Stimulating Hormone (TSH) 3.38MIU/L Chemistry Specimen Hemolysis < 15 Urine Collection Type Cleancatch-midstream Urine Color Yellow Urine Turbidity Clear Urine pH 5.5 Urine Specific [place] 1.010 Urine Protein Trace Urine Glucose (UA) Negative Urine Ketones Negative Urine Blood Trace-intact Urine Nitrite Negative Urine Bilirubin Negative Urine Urobilinogen 0.2EU/DL Urine Leukocyte Esterase Negative Urinalysis Comment Microscopic not ind. Radiology CXR with cardiomegaly, previous sternotomy with pacemaker wire, benign formost part Assessment & Plan Assessment 1. Acute renal failure present on admission: This is a recurrent theme for this patient. Saliva challenge with a history of heart failure. It is not clear the patients heart failure systolic or diastolic. Well hold Lasix. Gentle hydration. Repeat labs in the morning A fractional excretion of sodium will be somewhat unreliable as patient is on a diuretic, we will see how patient responds to IV fluids. Most likely will need to be discharged off diuretic therapy at least for the short term. LINDSEY inhibitor will need to be held. Consider nephrology discussion in the near future. 2. Anemia macrocytic chronic present on admission: Patient is currently on B6 and folate. Hemoglobin is down about a gram. Consider workup if this has not been accomplished and old records. 3. Atrial fibrillation chronic, present on admission: Patient is currently on aspirin, Coreg, Coumadin, well check an INR, monitor patient on telemetry, make further recommendations as indicated 4. Coronary disease chronic present on admission: Continue aspirin, statin, beta ana, no evidence of exacerbation Code Status Full Code, unverified Hospital Course Summary Disclaimer The hospital course summary below is not to be considered part of the above Progress Note. ISIAH ROBERTS MD 07/29/16 0953: Past Medical History Current Medications Home Meds Active Scripts Furosemide (Furosemide) 20 Mg Tablet, 1 TAB PO DAILY for 30 Days, #30 TAB 10 Refills Prov:NATHANIEL MARTINEZ DO 07/11/16 Reported Medications Pyridoxine HCl (Pyridoxine HCl) 100 Mg Tablet, 100 MG PO WL, TAB 07/10/16 Zolpidem Tartrate (Ambien) 5 Mg Tablet, 5 MG PO HS, TAB Take 1 tablet, by mouth, 1 time a day (at BEDTIME). 07/09/16 Aspirin (Aspir 81) 81 Mg Tablet.dr, 1 TAB PO DAILY, #30 TAB 5 Refills 07/09/16 Carvedilol (Carvedilol) 6.25 Mg Tablet, 1 TAB PO BIDWM, TAB BEST WITH FOOD. 07/09/16 Potassium Chloride (Klor-Con 10) 10 Meq Tablet.er, 1 TAB PO BID 07/09/16 Lisinopril (Lisinopril) 10 Mg Tablet, 10 MG PO DAILY for HYPERTENSION, TAB 07/09/16 Warfarin Sodium (Warfarin Sodium) 4 Mg Tablet, 4 MG PO 1700, TAB Take 1 tablet, by mouth, 1 time a day (at 5 pm). 03/02/15 Atorvastatin Calcium (Atorvastatin Calcium) 40 Mg Tablet, 1 TAB PO DAILY, TAB 02/05/14 Ubidecarenone (Co Q-10) 200 Mg Capsule, 200 MG PO DAILY 09/29/13 Famotidine (Famotidine) 20 Mg Tablet, 20 MG PO DAILY, TAB 0 Refills 06/04/13 Folic Acid (Folic Acid) 0.8 Mg Tablet, 400 MCG PO WL, 0 Refills 03/15/12 Finasteride (Finasteride) 5 Mg Tablet, 5 MG PO DAILY, 0 Refills 06/03/09 Allopurinol (Allopurinol) 300 Mg Tablet, 300 MG PO HS, 0 Refills 06/03/09 Allergies: Coded Allergies: carisoprodol (Verified Allergy, Severe, UNRESPONSIVE, 07/29/16) Sulfa (Sulfonamide Antibiotics) (Verified Allergy, Unknown, UNKNOWN, ) morphine (Verified Adverse Reaction, Unknown, HALLUCINATIONS, 07/29/16) Assessment & Plan Assessment 07/29/2016-Dr. Roberts I have reviewed and agree with the H&P above by Dr. Joshi, but please see my additions below. I have seen and examined the patient independently. Chief complaint: On admission the patient felt woozy and weak but states he feels better already History of present illness: Patient is a pleasant 81-year-old male who states for the past 3 days he has been feeling weak and dizzy even though he has been drinking plenty of fluids. He denies any nausea, vomiting, diarrhea or constipation. He denies any chest pains or palpitations. He denies any shortness of breath. He denies any fevers, chills or sweats. He states he urinates about 20 times a day but does not think he has trouble emptying his bladder. He did have an admission in late June with acute kidney injury on chronic kidney disease and at that time his potassium was stopped and he did not restart it. His first AR was also decreased to 20 mg a day instead of 40 mg a day. He does have some worsening anemia but denies any bloody stools or black tarry stools. The patient did follow-up with Dr. Wilcox after his last hospitalization. Past medical history also includes a couple of cardiac stents in the early 1999' s he later had CABG 4 around 2005. 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 He had a tonsillectomy as a child. He denies any history of lung disease, kidney disease, diabetes, stroke, seizures, or cancer. Social history, review of systems reviewed, and unchanged from above. Family history reviewed Physical exam Patient is afebrile, heart rate in the 60s with a paced rhythm, O2 sat in the 90s on room air, systolic blood pressure ranging from the 90s to low 110's. GEN-alert, oriented, no acute distress HEENT-sclera anicteric, pupils are equal, oropharynx is moist NECK-supple, no JVD, no carotid bruits CV-regular rate and rhythm CHEST-clear to auscultation bilaterally ABD-soft, nontender, nondistended with positive bowel sounds -no [place] EXT-no edema NEURO-no focal deficits, alert and oriented 3, good historian, moves all 4 extremities without difficulties SKIN-warm and dry and without rashes CT head shows no acute findings Chest x-ray on my read shows cardiomegaly but no obvious infiltrates or fluid overload EKG reveals ventricular paced rhythm with heart rate in the 60s Impression Acute kidney injury on chronic kidney disease Dehydration History of CHF Coronary artery disease with history of CABG and stents-stents were greater than 10 years ago Paroxysmal A. fib currently with paced rhythm chronic anticoagulation with Coumadin Anemia borderline macrocytic-check Hemoccults, may need iron studies, B-12, folate testing if not done already as an outpatient. Anemia may be secondary to his chronic kidney disease Plan Continue cautious IV fluids Continue to hold Lasix and lisinopril for now Restart Coreg this evening if blood pressure tolerates Pharmacy consult for Coumadin Recheck lab tomorrow Renal sonogram and post void bladder scan to rule out retention and to look at kidney size The patient may benefit from a nephrology consultation as an outpatient Possible discharge in the next 1-2 days if renal function improves and no worsening in CHF which is currently stable Walk in the halls with nurses and if unsteady consult PT 07/29/2016-patient's drapery cutter is Dr. Smith. DVT Prophylaxis: Coumadin MALIKA JOSHI MD Jul 29, 2016 05:16 ISIAH ROBERTS MD Jul 29, 2016 09:53
--- NOTE | 2016-07-29 06:28 | NUR ---
Status Pt A/Ox3. IVF running as charted. Pt denies pain/nausea/vomiting. VSS on RA. Denies needs at this time. Fall education provided. Bed alarm on. Call light within reach. Will continue to monitor.
[2016-07-29 09:17] LABS: BASOPHILS % (AUTO) 0.3 % (0-2); EOSINOPHILS # (AUTO) 0.2 T/MM3 (0-0.5); EOSINOPHILS % (AUTO) 1.7 % (0-4); HCT - HEMATOCRIT 26.2 % (41-53); HGB - HEMOGLOBIN 8.6 GM/DL (13.5-17.5); IMMATURE GRANULOCYTE # (AUTO) 0.02 T/MM3 (0.00-0.03); IMMATURE GRANULOCYTE % (AUTO) 0.2 % (0.0-0.5); INR 2.09 (0.76-1.04); LYMPHOCYTES # (AUTO) 1.4 T/MM3 (1-4.8); LYMPHOCYTES % (AUTO) 16.2 % (23-45); MEAN CORPUSCULAR HGB 32.7 UUG (26-34); MEAN CORPUSCULAR HGB CONC(MCHC 32.8 GM/DL (31-37); MEAN CORPUSCULAR VOLUME 99.6 UM3 (80-100); MEAN PLATELET VOLUME 9.6 UM3 (9.4-12.4); MONOCYTES # (AUTO) 0.7 T/MM3 (0-0.8); MONOCYTES % (AUTO) 7.9 % (0-9.0); NEUTROPHILS #(AUTO)-ABSOLUTE 6.4 T/MM3 (1.8-7.7); NEUTROPHILS % (AUTO) 73.7 % (33-66); PROTHROMBIN TIME 22.8 SEC (9.31-12.49); RED BLOOD COUNT 2.63 M/MM3 (4.50-5.90); WBC - WHITE BLOOD COUNT 8.7 T/MM3 (4.5-11.0)
[2016-07-29 09:22] LABS: ANION GAP 12 MEQ/L (5-15); BUN/CREATININE RATIO 24 RATIO (6-26); CHLORIDE 105 MEQ/L (98-107); CO2 - CARBON DIOXIDE 24 MEQ/L (22-30); CREATININE 2.6 MG/DL (0.8-1.5); GLOMERULAR FILTRATION RATE 24; GLUCOSE 107 MG/DL (75-110); POTASSIUM 4.9 MEQ/L (3.6-5); SODIUM 141 MEQ/L (134-144)
[2016-07-29] MEDS: FOLIC ACID 1 MG TABLET PO SCH (09:35)
[2016-07-29] MEDS: FINASTERIDE 5 MG TABLET PO SCH (09:35)
[2016-07-29] MEDS: ASPIRIN *EC* 81mg TABLET PO SCH (09:35)
[2016-07-29] MEDS: FAMOTIDINE 20 MG TABLET PO SCH (09:36)
--- NOTE | 2016-07-29 09:43 | NUR ---
COUMADIN CONSULT (Initial): Dx: CHRONIC AFIB Baseline INR = 2.09. Will give Warfarin 4 mg today. Will continue to monitor and make adjustments accordingly. Thank you.
[2016-07-29] MEDS ORDERED: PYRI100T2 (10:21)
[2016-07-29] MEDS ORDERED: FURO40TA5 PO (10:21)
[2016-07-29] MEDS ORDERED: CYAN10009 PO (10:21)
[2016-07-29] MEDS ORDERED: WARFARIN 4 MG TABLET PO SCH ×2 (12:00→17:00)
[2016-07-29] MEDS: PYRIDOXINE 100 MG TABLET PO SCH (12:49)
--- NOTE | 2016-07-29 17:00 | DI ---
Indication: ITS.REASON: Dizziness PROCEDURE: CHEST 1 VIEW: Encounter: Initial Comparison: March 02, 2015 Findings: The lungs are stable in appearance without new focal airspace consolidation. There is no pleural effusion or pneumothorax. The heart size, pulmonary vascularity and mediastinal contours are unchanged. Prior CABG and left cardiac pacemaker. IMPRESSION: Stable appearance of the chest without acute cardiopulmonary disease. .
--- NOTE | 2016-07-29 17:01 | DI ---
Indication: ITS.REASON: Dizziness PROCEDURE: CT HEAD W/O CONTRAST: Encounter: Initial Comparison: December 29, 2013 Technique: Axial CT images through the head were performed without contrast. Iterative Reconstruction dose reducing technique was utilized. FINDINGS: The ventricles are of normal size, shape, and contour for the patient's age. There are scattered areas of low attenuation in the white matter which most likely represent changes from chronic microvascular ischemia. The brainstem, cerebellum, and cerebral hemispheres otherwise have a normal morphology and CT attenuation. There is no evidence of midline displacement. No hemorrhage, signs of acute territorial stroke, mass effect, mass lesions, or edema is evident. The visualized portions of the skull base, midface, and calvarium demonstrate no abnormality. The paranasal sinuses are well aerated and free of significant disease. The tympanic and mastoid cavities appear normal. IMPRESSION: No acute intracranial abnormality or hemorrhage. There is a preliminary report by [employer] radiologic. .
[2016-07-29] MEDS: CARVEDILOL 6.25 MG TABLET PO SCH (18:16)
--- NOTE | 2016-07-29 19:47 | NUR ---
SHIFT SUMMARY PT ALERT AND ORIENTED X3. PT ON RA, DENIES SOA. DENIES PAIN, DENIES N/V. UP WITH STAND BY ASSIST, STEADY ON FEET. PT DENIES DIZZINESS/LIGHTHEADEDNESS. IVF INFUSING ORDERED INTO RIGHT HAND. ADEQUATE URINE OUTPUT, BM THIS SHIFT. PT ABLE TO MAKE NEEDS KNOWN. CALL LIGHT WITHIN REACH.
[2016-07-29] MEDS ORDERED: ATORVASTATIN 40 MG TABLET PO SCH (22:00)
[2016-07-29] MEDS ORDERED: ALLOPURINOL 300 MG TABLET PO SCH (22:00)
[2016-07-30 04:00] VITALS: BP 118/72; PULSE 83; RESP 18; TEMP 96.7; O2SAT 97
[2016-07-30] MEDS: NORMAL SALINE 1,000 ML IV SCH ×2 (04:27→15:26)
[2016-07-30 05:50] LABS: BASOPHILS % (AUTO) 0.4 % (0-2); EOSINOPHILS # (AUTO) 0.1 T/MM3 (0-0.5); EOSINOPHILS % (AUTO) 1.6 % (0-4); HCT - HEMATOCRIT 27.1 % (41-53); HGB - HEMOGLOBIN 8.7 GM/DL (13.5-17.5); IMMATURE GRANULOCYTE # (AUTO) 0.02 T/MM3 (0.00-0.03); IMMATURE GRANULOCYTE % (AUTO) 0.2 % (0.0-0.5); LYMPHOCYTES # (AUTO) 1.3 T/MM3 (1-4.8); LYMPHOCYTES % (AUTO) 15.5 % (23-45); MEAN CORPUSCULAR HGB CONC(MCHC 32.1 GM/DL (31-37); MEAN CORPUSCULAR VOLUME 99.6 UM3 (80-100); MEAN PLATELET VOLUME 10.4 UM3 (9.4-12.4); MONOCYTES # (AUTO) 0.7 T/MM3 (0-0.8); MONOCYTES % (AUTO) 8.8 % (0-9.0); NEUTROPHILS #(AUTO)-ABSOLUTE 6.1 T/MM3 (1.8-7.7); NEUTROPHILS % (AUTO) 73.5 % (33-66); RED BLOOD COUNT 2.72 M/MM3 (4.50-5.90); WBC - WHITE BLOOD COUNT 8.3 T/MM3 (4.5-11.0)
[2016-07-30 05:54] LABS: INR 2.36 (0.76-1.04); PROTHROMBIN TIME 25.7 SEC (9.31-12.49)
[2016-07-30 05:57] LABS: ALBUMIN 3.8 G/DL (3.5-5.0); ANION GAP 13 MEQ/L (5-15); BUN/CREATININE RATIO 27 RATIO (6-26); CHLORIDE 108 MEQ/L (98-107); CO2 - CARBON DIOXIDE 21 MEQ/L (22-30); CREATININE 1.9 MG/DL (0.8-1.5); GLOMERULAR FILTRATION RATE 34; GLUCOSE 116 MG/DL (75-110); MAGNESIUM 2.1 MG/DL (1.6-2.3); POTASSIUM 5.2 MEQ/L (3.6-5); SODIUM 142 MEQ/L (134-144)
[2016-07-30 06:17] LABS: PHOSPHORUS 3.3 MG/DL (2.5-4.5)
[2016-07-30 07:48] VITALS: BP 130/70; PULSE 65; RESP 18; TEMP 98.3; O2SAT 97
--- NOTE | 2016-07-30 07:58 | NUR ---
shift summary pt is a/o x3 and up with 1 assist. pt uses cane and ambulates well. pt has NS @ 100mls/hr in right hand PIV. pt denies any pain, soa or n/v. pt has had adequate output and ambulated last night. pt walked from medical rm 159 to medical rm 149 and back to pt's room. pt denied any soa or syncope when ambulating.
--- NOTE | 2016-07-30 08:05 | DI ---
EXAM: US RENAL DATE: 07/30/2016 7:00 AM SITE OF DICTATION: [place]. INDICATION: ITS.REASON: jon on ckd COMPARISON: None available. TECHNIQUE: Multiple real-time grayscale sonographic images were obtained of the right and left kidneys with color flow and spectral analysis. FINDINGS: The right kidney demonstrates normal corticomedullary differentiation and measures 1.8 x 5.8 x 5.1 cm. There is no right sided mass, calculus or hydronephrosis. The left kidney demonstrates normal corticomedullary differentiation and measures 12.3 x 6.3 x 5.7 cm. There is no left sided mass, calculus or hydronephrosis. There is a small echogenic focus within the left kidney laterally without shadowing may reflect renal fat versus tiny nonobstructing stone. IMPRESSION: 1. Small echogenic focus with the left kidney laterally may reflect small focal renal fat versus tiny nonobstructing stone. There is no hydronephrosis or solid mass. The right kidney is unremarkable. .
[2016-07-30] MEDS: FOLIC ACID 1 MG TABLET PO SCH (08:23)
[2016-07-30] MEDS: ASPIRIN *EC* 81mg TABLET PO SCH (08:23)
[2016-07-30] MEDS: FINASTERIDE 5 MG TABLET PO SCH (08:23)
[2016-07-30] MEDS: CARVEDILOL 6.25 MG TABLET PO SCH ×2 (08:23→17:44)
[2016-07-30] MEDS: FAMOTIDINE 20 MG TABLET PO SCH (08:23)
[2016-07-30 08:36] VITALS: PULSE 65; RESP 18
--- NOTE | 2016-07-30 09:00 | NUR ---
Diet/NPO Spoke with ARLINE Diaz, about pt.'s diet after Renal US this A.M. She called back and informed this RN pt. can resume cardiac diet. Will inform pt. Will continue to monitor.
--- NOTE | 2016-07-30 09:37 | NUR ---
WARFARIN CONSULT S: 81 y/o M on warfarin for afib. Home dose of warfarin is 4 mg daily. Goal INR 2-3. O: Date INR Warfarin Dose 07/29 2.09 4 mg 07/30 2.36 PLAN: 3.75 mg A/P: INR therapeutic. No significant drug-drug interactions with warfarin. Will order warfarin 3.75 mg x 1 today. Will continue to follow. Thank you for the consult. Terese Woodward, PharmD, BCPS
--- NOTE | 2016-07-30 11:33 | PNPDOC ---
Subjective Date DATE: 07/30/16 TIME: 11:16 Subjective F/U: Acute kidney injury Doing well this am. Breathing stable - denies cough or SOA. No pain with breathing. Not having chest pain, pressure, or heaviness. No n/v. Eating well. No itching. Ambulating well. Feels much less washed out and weak. Objective Vital Signs Vital signs Vital Signs Date Time Temp Pulse Resp B/P Pulse Ox O2 Delivery O2 Flow Rate FiO2 07/30/16 08:36 65 18 07/30/16 07:48 98.3 130/70 97 Room Air Telemetry Rhythm: Sinus Rhythm Height (Feet): 5 Height (Inches): 8.00 Weight (Kilograms): 95.400 General General Appearance: Alert, Obese, Orientated x 3, Well Nourished, Well Developed, Cooperative, No Acute Distress, Looks Stated Age Eyes (Brief) Eyes: FOUND: EOMI, PERRL, NOT FOUND: scleral icterus ENMT (Brief) ENMT: FOUND: hearing intact, mucosa moist Neck (Brief) Neck: FOUND: midline, NOT FOUND: nuchal rigidity, spasm Respiratory (Brief) Respiratory: FOUND: clear all benson, equal bilaterally, NOT FOUND: rales, wheezes Cardiovascular (Brief) Cardiac: FOUND: regular rate, regular rhythm Abdomen (Brief) Abdominal: FOUND: BS normo active x4, soft, NOT FOUND: distended, tender Extremities (Brief) Extremity : Side: Bilateral Extremity: leg Extremity Finding: FOUND: edema (+1) Musculoskeletal (Brief) Musculoskeletal: FOUND: extremities move equally, NOT FOUND: deformity, loss of motion, spasm, tenderness Integumentary (Brief) Integumentary: FOUND: dry, warm Neurologic (Brief) Neurological: FOUND: cranial 2-12 intact, motor (intact) Psychiatric (Brief) Psychiatric: FOUND: alert, attentive, normal affect, oriented Laboratory Laboratory Laboratory Tests 07/29/16 02:09 07/29/16 09:05 07/30/16 04:58 Laboratory Tests 07/29/16 02:09 07/29/16 09:05 07/30/16 04:58 Assessment & Plan Problems: (1) Acute kidney injury Status: Acute (2) Dehydration Status: Acute Assessment & Plan: POA (3) Stage III chronic kidney disease Status: Chronic (4) Anemia Status: Chronic Qualifiers: Anemia type: unspecified type Qualified Codes: D64.9 - Anemia, unspecified (5) CAD (coronary artery disease) Status: Chronic (6) Atrial fibrillation Status: Chronic Qualifiers: Atrial fibrillation type: paroxysmal Qualified Codes: I48.0 - Paroxysmal atrial fibrillation (7) Anticoagulated on Coumadin Status: Chronic Plan/Intensity of Service Nursing to ambulate QID. Stop Lisinopril. Continue with IVF. Encourage continue sodium avoidance. Anticipate d/c to home this afternoon for outpatient f/u with Dr Wilcox. Will need continued monitoring of BMP and INR. Nephrology evaluation would be beneficial. See orders for details. Code Status Full Code, unverified Hospital Course Summary Disclaimer The hospital course summary below is not to be considered part of the above Progress Note. Hospital Course Summary 07/29 Continue cautious IV fluids Continue to hold Lasix and lisinopril for now Restart Coreg this evening if blood pressure tolerates Pharmacy consult for Coumadin Recheck lab tomorrow Renal sonogram and post void bladder scan to rule out retention and to look at kidney size The patient may benefit from a nephrology consultation as an outpatient Possible discharge in the next 1-2 days if renal function improves and no worsening in CHF which is currently stable Walk in the halls with nurses and if unsteady consult PT 07/30 Doing well this am. Breathing stable - denies cough or SOA. No pain with breathing. Not having chest pain, pressure, or heaviness. No n/v. Eating well. No itching. Ambulating well. Feels much less washed out and weak. Creatinine decreased to 1.9. Renal sono without obstruction. Nursing to ambulate QID. Stop Lisinopril. Continue with IVF. Encourage continue sodium avoidance. Anticipate d/c to home this afternoon for outpatient f/u with Dr Wilcox. Will need continued monitoring of BMP and INR. Nephrology evaluation would be beneficial. See orders for details. LISA WOODWARD MD Jul 30, 2016 11:28
[2016-07-30] MEDS: PYRIDOXINE 100 MG TABLET PO SCH (11:51)
[2016-07-30 11:56] VITALS: BP 141/68; PULSE 69; RESP 16; TEMP 97.6; O2SAT 98
[2016-07-30] MEDS ORDERED: WARFARIN 7.5 MG TABLET PO ONE (12:00)
--- NOTE | 2016-07-30 12:03 | NUR ---
Status Pt. is very pleasant. VS's stable. Pt. has denied pain, nausea and SOA so far this shift. I/O adequate. Ambulation and activity encouraged. Pt. did go for a short walk in the halls before Lunch with supervision from this RN. He transfers with the cane and gait belt. Pt. is stand-by assist. is present at bedside. Will continue to monitor.
--- NOTE | 2016-07-30 14:01 | NUR ---
CM CM IN TO VISIT WITH PT, FAMILY AT BEDSIDE. CM EXPLAINED ROLE TO PT AND FAMILY AND PROVIDED CONTACT INFORMATION. PT [facility] NEEDS AND IS AWARE TO CONTACT CM SHOULD NEEDS ARISE.
[2016-07-30 16:00] VITALS: BP 122/67; PULSE 73; RESP 16; TEMP 98.1; O2SAT 99
--- NOTE | 2016-07-30 18:25 | NUR ---
Discharge Pt. is very pleasant. VS's stable. He takes meds whole. He has ambulated in the halls with supervision, cane and gait belt twice this shift. Pt. has denied pain and nausea. He is A/O. I/O adequate. Pt. was wheeled out via wheelchair by AUBRIE Crowley. is present. Pt. is discharged to home.
--- NOTE | 2016-07-31 07:53 | DSF ---
Date of initiation of observation 07/29/2016. Date of discharge 07/30/2016. ADMISSION DIAGNOSIS Acute kidney injury. DISCHARGE DIAGNOSIS Acute kidney injury - resolved. ASSOCIATED CONDITIONS AND COMPLICATIONS Dehydration - resolved. History of congestive heart failure. Coronary artery disease. Paroxysmal atrial fibrillation. Iatrogenic coagulopathy with Coumadin secondary to atrial fibrillation. Anemia. Stage 3 chronic kidney disease. PROCEDURES None. CONSULTS None. CLINICAL RESUME Mr. Fonseca is an 81-year-old gentleman who resides independently with his . He does have history of congestive heart failure as well as atrial fibrillation. He is on chronic diuretic therapy. Earlier in June of this year he presented to [facility] secondary to acute renal failure. He was treated with fluids for approximately three days and discharged home with creatinine of 1.7. The patient reports that over the past three days he has been feeling increasing dizziness and weakness. He presents to emergency department for evaluation. There, his lab evaluation did show creatinine elevated at 2.8. BUN was 66. In light of his acute kidney injury he was placed in outpatient observation status at [facility] under the hospitalist service. For complete details of the H&P, refer to that document. LABORATORY White blood count is 10.5 with hemoglobin 9.2, hematocrit 28.0, MCV 99.3 and platelets 172,000. Serum sodium is 140, potassium 5.0, chloride 100, CO2 17, BUN 66, creatinine 2.8, GFR 22 and blood glucose 104. Transaminases are unremarkable. TSH is 3.38. INR is 2.19. UA reveals low specific gravity of 1.010 with trace protein, trace blood. Stool for occult blood is negative. HOSPITAL COURSE The patient was placed in outpatient observation status at [facility] under the hospitalist service. He was started on IV fluids of normal saline to provide hydration. We did hold Lasix and lisinopril initially. Coreg was restarted. Coumadin was continued as per pharmacy protocol. Renal ultrasound was obtained and this showed no evidence of hydronephrosis. Lab was monitored and we did see his renal function make improvement. On recheck on hospital day #1, it decreased to 2.6 and by the next day it was 1.9. He was tolerating IV fluids well and not having any respiratory symptoms. He was not needing oxygen or having increased shortness of breath. He was not having chest pressure or pain. Blood pressure was stable, as was heart rate. He was eating, drinking and ambulating well. In light of his interval improvement, we discussed about discharge to home. Will have the patient hold lisinopril in the outpatient setting. He may continue with his Lasix, monitoring weight and volume status. Narrative disclaimer: Above narrative is a brief summary of the patient's hospitalization; for complete details of hospital course, refer to the medical record. DISCHARGE CONDITION Stable/good. DIET Low sodium. ACTIVITIES As tolerated. MEDICATIONS STOP lisinopril. Allopurinol 300 mg q.h.s. Aspirin 81 mg daily. Lipitor 40 mg daily. Coreg 6.25 mg b.i.d. with meals. Vitamin B12 1000 mcg daily. Famotidine 20 mg daily. Finasteride 5 mg daily. Folic acid 400 mcg with lunch. Furosemide 40 mg daily. Vitamin B12 100 mg daily. CoQ10 200 mg daily. Warfarin 4 mg daily. Ambien 5 mg q.h.s. FOLLOWUP The patient will follow with Dr. Wilcox in one week - recommend recheck BMP at that time secondary to his kidney disease. a) Recommend considerations for outpatient nephrology consultation secondary to CKD and episodes of acute kidney injury. INSTRUCTION TO PATIENT The patient was instructed on his diagnosis and treatments provided. He was encouraged to be adherent with medications. We discussed rationale behind holding lisinopril. He will watch for increasing shortness of breath, congestion, cough, swelling or weight gain. He will watch for chest pressure, pain or heaviness. Should these problems or other occur he could be in contact with Dr. Wilcox. If symptoms become quite dire he can present to emergency room for acute evaluation. He voiced understanding of the above. Time spent with discharge greater than 30 minutes. BRODYD
== END 2016-07-30 18:25 | disposition home or self-care (01) ==
LOC: ED 00:39 → EDHOLD 03:45 → MED 04:15
PROVIDERS: ADMIT Emergency Medicine; ATTEND Hospitalist
DX: N17.9 Acute kidney failure, unspecified (principal); I12.9 Hypertensive chronic kidney disease with stage 1 through stage 4 chronic kidney disease, or unspecified chronic kidney disease; N18.3 Chronic kidney disease, stage 3 (moderate); E86.0 Dehydration; I50.9 Heart failure, unspecified; I25.10 Atherosclerotic heart disease of native coronary artery without angina pectoris; I48.0 Paroxysmal atrial fibrillation; R79.1 Abnormal coagulation profile; T45.515A Adverse effect of anticoagulants, initial encounter; D53.9 Nutritional anemia, unspecified; E78.00 Pure hypercholesterolemia, unspecified; K21.9 Gastro-esophageal reflux disease without esophagitis; F32.9 Major depressive disorder, single episode, unspecified; N40.0 Benign prostatic hyperplasia without lower urinary tract symptoms; Z79.82 Long term (current) use of aspirin; Z79.899 Other long term (current) drug therapy; Z95.0 Presence of cardiac pacemaker; Z95.1 Presence of aortocoronary bypass graft; Z95.5 Presence of coronary angioplasty implant and graft
CPT/HCPCS: 36415; 70450; 71010; 76770; 80053; 80069; 81003; 82272; 82948; 83735; 84443; 85025; 85610; 93005; 96360; 96361; 99284; A9270; G0378; J7030; 80048; 99218

== ENCOUNTER 2017-08-24 18:13 | Inpatient (IN) ==
[2017-08-24] MEDS ORDERED: ONDANSETRON 4 MG/2 ML INJECTION IVP ONE ×2 (18:43→19:29)
--- NOTE | 2017-08-24 18:43 | Emergency Department Report ---
Nausea/Vomiting/Diarrhea HPI - General Chief complaint: Nausea/Vomiting/Diarrhea Stated complaint: vomiting Time Seen by Provider: 08/24/17 18:25 Source: patient, family, RN notes reviewed, old records reviewed Mode of arrival: ambulatory Limitations: altered mental status (Suspect dementia) - History of Present Illness HPI Narrative: 82yo man presents to the ER for evaluation of vomiting. Pt denies any nausea or abdominal pain; however, anytime he eats solid food (for the last 3 days), he vomits all of the solid food. Pt denies a sensation of food getting stuck or not going down. He is able to keep down fluids, but not solids. Pt was seen by his PCM awhile ago and placed on water pills for fluid retention in his abdomen. Pt is now taking lasix at least - Related Data Home Medications Medication Instructions Recorded Confirmed Famotidine [Pepcid] 20 mg PO DAILY #0 tab 06/04/13 08/24/17 Atorvastatin Calcium 40 mg PO PM #0 tab 02/05/14 08/24/17 Warfarin Sodium 4 mg PO 1700 #0 tab 03/02/15 08/24/17 Zolpidem Tartrate [Ambien] 5 mg PO HS #0 tab 07/09/16 08/24/17 Allopurinol [Zyloprim] 300 mg PO HS 06/27/17 08/24/17 Aspirin Chewable [ASA] 81 mg PO PM 06/27/17 08/24/17 Bumetanide Tab [Bumex 1 mg Tab] 1 mg PO DAILY 06/27/17 08/24/17 Carvedilol 25 mg PO BID 06/27/17 08/24/17 Coenzyme Q-10 [Co Q-10] 200 mg PO DAILY 06/27/17 08/24/17 Cyanocobalamin (Vitamin B-12) 1,000 mcg PO 1200 06/27/17 08/24/17 [Vitamin B-12] Finasteride [Proscar] 5 mg PO PM 06/27/17 08/24/17 Folic Acid 0.4 mg PO 1200 06/27/17 08/24/17 Melatonin/Pyridoxine HCl (B6) 6 mg PO HS 06/27/17 08/24/17 [Melatonin 3 mg Tablet] Potassium Chloride 10 meq PO BID 06/27/17 08/24/17 Pyridoxine HCl (Vitamin B6) [B-6] 100 mg PO 1200 06/27/17 08/24/17 Sertraline [Zoloft] 50 mg PO DAILY 06/27/17 08/24/17 Allergies Allergy/AdvReac Type Severity Reaction Status Date / Time carisoprodol Allergy Severe UNRESPONSIV Verified 08/24/17 18:25 E Sulfa (Sulfonamide Allergy Unknown UNKNOWN Verified 08/24/17 18:25 Antibiotics) morphine AdvReac Unknown HALLUCINATI Verified 08/24/17 18:25 ONS [facility] Patient Stated Medical History Cardiac Arrhythmia Yes: A-FIB Congestive Heart Failure Yes Coronary Artery Disease Yes Hypertension Yes Sleep Apnea Yes Gastroesophageal Reflux Yes Disease Ulcer Yes Hx Benign Prostatic Yes Hyperplasia Anemia Yes Depression Yes Surgical History: Pacemaker, CABG, Cardiac Cath, Tonsils, Back, Appendectomy, CTS - Social History Smoking status: Former smoker Substance use type: does not use Alcohol intake frequency: former alcohol drinker Physical Exam - Limitations Limitations: no limitations - General General appearance: alert, in no apparent distress, cachectic - Normal Exams: Head:: Normocephalic without trauma Eyes:: Pupils are PERRLA w/ EOMI, No scleral icterus, irritation, or foreign bodies noted ENMT:: No facial trauma, nasal exudates, pharyngeal erythema, or exudates are noted Neck:: Full range of motion, without adenopathy Lymphatic:: No lymphadenopathy Musculoskeletal:: No tenderness, or deformity noted Integumentary:: No rashes, hives Neurological:: Patient is alert, and oriented Psychiatric:: Patient exhibits, appropriate attention - ENT ENT exam: Present: normal oropharynx, mucous membranes dry, normal external ear exam. Absent: normal exam - Chest Chest inspection: Present: normal inspection, symmetric chest wall rise. Absent : tenderness, rash - Respiratory Respiratory exam: Present: normal lung sounds bilaterally. Absent: respiratory distress, wheezes, stridor, prolonged expiratory phase, crackles - Cardiovascular Cardiovascular exam: Present: regular rate, irregular rhythm, normal heart sounds. Absent: normal rhythm, rubs, gallop, clicks - Abdominal Exam Abdominal exam: Present: soft, normal bowel sounds, mass (Prominent mass over pts abdomen; enlargement of pts RUQ c/w h/o cirrhosis). Absent: distention, tenderness, guarding, rebound, rigidity, bruit Course Course Narrative: Shortly after leaving the room, pt gave a shout and his pushed his call button. Pt had thrown his ice water and become unresponsive (unclear if his ICD/ pacer had fired or what cause him to throw his water and shout). Pt was found in agonal respirations without a pulse. CPR was begun immediately and a code blue was called. Initial rhythm check showed a V-fib; shock was delivered at 220J and CPR was begun again. At the next rhythm check, pt was found in V-tach, with a pulse. CPR was withheld while attempting to obtain EKG, etc. Pt again lost his pulse, so CPR was restarted. Rhythm check again showed V-tach, so pt was given 360J of synchronized electricity. At the next rhythm check, pt had ROSC. SBP was 130s. Post-ROSC EKG showed Electronic ventricular pacing. Pt was breathing on his own and c/o pain. Fentanyl 25mcg was given with some relief of pain. Pt cont to c/o nausea, so zofran was repeated; next compazine was given for relief. - Consultations Consultation #1: Charlie Telemed: Will admit pt to CCU for further eval and treatment. Time: 20:25 Vital Signs Temperature 97.9 F 08/24/17 18:17 Pulse Rate 81 08/24/17 18:17 Respiratory Rate 16 08/24/17 18:17 Blood Pressure 155/55 H 08/24/17 18:17 Pulse Oximetry 95 08/24/17 18:17 Temperature 97.9 F 08/24/17 18:17 Pulse Rate 81 08/24/17 18:17 Respiratory Rate 20 08/24/17 20:31 Blood Pressure 155/55 H 08/24/17 18:17 Pulse Oximetry 95 08/24/17 18:17 Nausea/Vomiting/Diarrhea - [facility] Narrative Medical decision making narrative: Pt initially seen for vomiting. After initial assessment, pt coded; pt quickly revived with CPR. Electrolytes were markedly abnormal on initial BMP; improving following treatment in the ER. Pts BP decreased after initial ROSC; BPs responded appropriately to fluids, but MAPs hovered around 65. Norepi drip ordered to have to maintain MAP > 65. Pt stabilized and hospitalist contacted for local admission (per pt and preference). Pt accepted for admission to CCU. - Differential Diagnosis Likely: traveler's diarrhea, food poisoning, gastroenteritis, drug-induced nausea and vomiting, dehydration - Medical Records Attestation: I reviewed the patient's medical records. - Lab Data Attestation: I reviewed the patient's lab results. Result diagrams: 08/24/17 18:31 08/24/17 19:55 Lab Results 08/24/17 08/24/17 08/24/17 Range/Units 18:31 18:31 19:33 WBC 10.7 (4.5-11.0) T/MM3 RBC 4.78 (4.50-5.90) M/MM3 Hgb 13.5 (13.5-17.5) GM/DL Hct 39.8 L (41-53) % MCV 83.3 (80-100) UM3 MCH 28.2 (26-34) UUG MCHC 33.9 (31-37) GM/DL RDW Std Deviation 46.7 (36.9-50.2) FL Plt Count 258 (130-400) T/MM3 MPV 10.2 (9.4-12.4) UM3 Immature Gran % (Auto) Not performed Neut % (Auto) Not performed Lymph % (Auto) Not performed [place] % (Auto) Not performed Eos % (Auto) Not performed Baso % (Auto) Not performed Neut # (Auto) Not performed Lymph # (Auto) Not performed [place] # (Auto) Not performed Eos # (Auto) Not performed Baso # (Auto) Not performed Abs Immat Gran (auto) Not performed Neutrophils % (Manual) 73.0 H (33-66) % Lymphocytes % (Manual) 18.0 L (23-45) % Monocytes % (Manual) 9.0 (0-9.0) % Neutrophils # (Manual) 7.8 H (1.8-7.7) T/MM3 Lymphocytes # (Manual) 1.9 (1-4.8) T/MM3 Monocytes # (Manual) 1.0 H (0-0.8) T/MM3 RBC Morph Comment Normal Turbidity < 20 (0-20) Sodium 130 L (134-144) MEQ/L Potassium 1.9 L* (3.6-5) MEQ/L Chloride < 50 L* (98-107) MEQ/L Carbon Dioxide 58 H* (22-30) MEQ/L Anion Gap TNP BUN 72.0 H* (9-20) MG/DL Creatinine 1.4 (0.8-1.5) mg/dL GFR Calculation 49 BUN/Creatinine Ratio 51 H (6-26) RATIO Glucose 145 H (75-110) MG/DL Calculated Osmolality 275 (261-280) MOSM/KG Uric Acid 9.1 H (3.5-8.5) mg/dL Calcium 10.2 (8.4-10.2) MG/DL Total Bilirubin 1.90 H (0.20-1.30) MG/DL Icterus Index < 2 (0-7) AST 86 H (17-59) U/L ALT 33 (1-50) U/L Alkaline Phosphatase 157 H (38-126) U/L Ammonia 28 (9-33) umol/L Total Protein 9.1 H (6.3-8.2) g/dL Albumin 5.0 (3.5-5.0) g/dL Globulin 4.1 H (2.4-3.6) G/DL Albumin/Globulin Ratio 1.2 (1.1-2.2) RATIO Specimen Hemolysis < 15 (0-25) Ur Collection Type Urine, void-cc/notcc Urine Color Yellow (YELLOW) Urine Clarity Clear Urine pH 7.0 (5.0-8.0) Ur Specific [place] 1.020 (1.015-1.025) Urine Protein 2+ A (NEGATIVE) Urine Glucose (UA) Negative (NEGATIVE) Urine Ketones Negative (NEGATIVE) Urine Occult Blood 2+ A (NEGATIVE) Urine Nitrate Negative (NEGATIVE) Urine Bilirubin Negative (NEGATIVE) Urine Urobilinogen 1.0 (NORMAL) EU/DL Ur Leukocyte Esterase Negative (NEGATIVE) Urine RBC 1-3 (0-3) /HPF Urine WBC None seen (0-5) /HPF Urine Bacteria 1+ H (NEGATIVE) Fatty Casts 0-1 /LPF Ur Culture Indicated? Cult not indicated 08/24/17 Range/Units 19:55 WBC (4.5-11.0) T/MM3 RBC (4.50-5.90) M/MM3 Hgb (13.5-17.5) GM/DL Hct (41-53) % MCV (80-100) UM3 MCH (26-34) UUG MCHC (31-37) GM/DL RDW Std Deviation (36.9-50.2) FL Plt Count (130-400) T/MM3 MPV (9.4-12.4) UM3 Immature Gran % (Auto) Neut % (Auto) Lymph % (Auto) [place] % (Auto) Eos % (Auto) Baso % (Auto) Neut # (Auto) Lymph # (Auto) [place] # (Auto) Eos # (Auto) Baso # (Auto) Abs Immat Gran (auto) Neutrophils % (Manual) (33-66) % Lymphocytes % (Manual) (23-45) % Monocytes % (Manual) (0-9.0) % Neutrophils # (Manual) (1.8-7.7) T/MM3 Lymphocytes # (Manual) (1-4.8) T/MM3 Monocytes # (Manual) (0-0.8) T/MM3 RBC Morph Comment Turbidity < 20 (0-20) Sodium 127 L (134-144) MEQ/L Potassium 2.2 L* (3.6-5) MEQ/L Chloride 58 L D (98-107) MEQ/L Carbon Dioxide 51 H* (22-30) MEQ/L Anion Gap 18 H BUN 69.0 H* (9-20) MG/DL Creatinine 1.4 (0.8-1.5) mg/dL GFR Calculation 49 BUN/Creatinine Ratio 49 H (6-26) RATIO Glucose 182 H (75-110) MG/DL Calculated Osmolality 270 (261-280) MOSM/KG Uric Acid (3.5-8.5) mg/dL Calcium 9.1 D (8.4-10.2) MG/DL Total Bilirubin (0.20-1.30) MG/DL Icterus Index < 2 (0-7) AST (17-59) U/L ALT (1-50) U/L Alkaline Phosphatase (38-126) U/L Ammonia (9-33) umol/L Total Protein (6.3-8.2) g/dL Albumin (3.5-5.0) g/dL Globulin (2.4-3.6) G/DL Albumin/Globulin Ratio (1.1-2.2) RATIO Specimen Hemolysis < 15 (0-25) Ur Collection Type Urine Color (YELLOW) Urine Clarity Urine pH (5.0-8.0) Ur Specific [place] (1.015-1.025) Urine Protein (NEGATIVE) Urine Glucose (UA) (NEGATIVE) Urine Ketones (NEGATIVE) Urine Occult Blood (NEGATIVE) Urine Nitrate (NEGATIVE) Urine Bilirubin (NEGATIVE) Urine Urobilinogen (NORMAL) EU/DL Ur Leukocyte Esterase (NEGATIVE) Urine RBC (0-3) /HPF Urine WBC (0-5) /HPF Urine Bacteria (NEGATIVE) Fatty Casts /LPF Ur Culture Indicated? - Radiology Data Attestation: I reviewed the patient's radiology results. US ABD (15 AUG 2017): 1. Cirrhosis and ascites suggesting portal hypertension. 2. Gallbladder sludge and stone disease with probable reactive wall thickening due to the hepatic cirrhosis and portal venous congestion. CXR: Stable chest. No acute CT pathology. Disposition Clinical Impression: Cardiac arrest, Hypokalemia, Hypochloremia, Hyponatremia, Hyperbilirubinemia Vomiting Qualifiers: Vomiting type: unspecified Vomiting Intractability: non-intractable Nausea presence: without nausea Qualified Code(s): R11.11 - Vomiting without nausea Chronic renal failure Qualifiers: Chronic kidney disease stage: stage 3 (moderate) Qualified Code(s): N18.3 - Chronic kidney disease, stage 3 (moderate) Cirrhosis of liver Qualifiers: Hepatic cirrhosis type: unspecified hepatic cirrhosis Ascites presence: without ascites Qualified Code(s): K74.60 - Unspecified cirrhosis of liver Disposition: 02 To [facility] [place] Acute Care Print Language: Filipino Condition: Stable Prescriptions: No Action Atorvastatin Calcium 40 mg PO PM #0 tab Warfarin Sodium 4 mg PO 1700 #0 tab Zolpidem Tartrate [Ambien] 5 mg PO HS #0 tab Finasteride [Proscar] 5 mg PO PM Cyanocobalamin (Vitamin B-12) [Vitamin B-12] 1,000 mcg PO 1200 Pyridoxine HCl (Vitamin B6) [B-6] 100 mg PO 1200 Folic Acid 0.4 mg PO 1200 Potassium Chloride 10 meq PO BID Bumetanide Tab [Bumex 1 mg Tab] 1 mg PO DAILY Carvedilol 25 mg PO BID Sertraline [Zoloft] 50 mg PO DAILY Coenzyme Q-10 [Co Q-10] 200 mg PO DAILY Melatonin/Pyridoxine HCl (B6) [Melatonin 3 mg Tablet] 6 mg PO HS Famotidine [Pepcid] 20 mg PO DAILY #0 tab Aspirin Chewable [ASA] 81 mg PO PM Allopurinol [Zyloprim] 300 mg PO HS Referrals: Niraj Wilcox MD [Primary Care Provider] - Time of Disposition: 20:45 - Seen By: physician
[2017-08-24] MEDS ORDERED: POTASSIUM CHLORIDE INJ 20 MEQ in NS 1,000 ML IV ONE (19:11)
[2017-08-24] MEDS ORDERED: AMIODARONE 150mg/3ml INJECTION IV ONE (19:13)
[2017-08-24] MEDS ORDERED: AMIODARONE 450 MG in NS 250ml 250 ML IV SCH (19:15)
[2017-08-24] MEDS: POTASSIUM CHLORIDE PREMIX 10 MEQ/100 ML BAG IV SCH ×4 (19:19→21:32)
[2017-08-24] MEDS: SALINE FLUSH 10ml SYRINGE IVF PRN ×2 (19:28→20:32)
[2017-08-24] MEDS ORDERED: PROCHLORPERAZINE 10 MG/2 ML INJECTION IVP ONE (19:29)
[2017-08-24] MEDS ORDERED: FentaNYL 100 MCG/2 ML INJECTION IVP ONE ×2 (19:49→19:51)
[2017-08-24] MEDS ORDERED: NS 1,000 ML IV ONE (20:07)
[2017-08-24] MEDS ORDERED: NOREPINEPHRINE DRIP 4,000 MCG in NS 250ml 250 ML IV PRN (20:23)
[2017-08-24] MEDS ORDERED: MORPHINE SULFATE 4mg INJECTION IVP PRN (21:29)
[2017-08-24] MEDS ORDERED: NS 1,000 ML IV SCH (21:29)
[2017-08-24] MEDS ORDERED: ONDANSETRON 4 MG/2 ML INJECTION IVP PRN (21:29)
[2017-08-24 21:53] VITALS: BMI 25.9
--- NOTE | 2017-08-24 22:11 | History & Physical Report ---
History of Present Illness Date: 08/24/17 Chief complaint: N/V diarrhea HPI: 82yo man with PMH of cirrhosis and chronic kidney failure presents to the ER for evaluation of vomiting. Patient is not able to tell me why he came to the hospital, and reports he does not remember what happened in the ED. HX taken from ED doc reports patient came to the ED for reports of N/V and diarrhea. He had recently seen his PCP for fluid retention in his abdomen and placed on lasix. Shortly after presenting to the ED he let out a scream, then went unresponsive. He was found to be in V. Fib and was shocked back into ryth and placed on amiodarone gtt. He had return of spontaneous and requested he stay at [facility] for his care. He does have a defibrillator/pacemaker, it did not appear to be working during the code. He also had critical electrolyte abnormalities. Patient admitted to ICU for further care. Review of Systems ROS unobtainable: due to mental status Past Medical History Surgical History: Pacemaker, CABG, Cardiac Cath, Tonsils, Back, Appendectomy, CTS Family History: As Above - Social History Smoking status: Former smoker Medications Home Medications Medication Instructions Recorded Confirmed Type Famotidine [Pepcid] 20 mg PO DAILY #0 tab 06/04/13 08/24/17 History Atorvastatin Calcium 40 mg PO PM #0 tab 02/05/14 08/24/17 History Warfarin Sodium 4 mg PO 1700 #0 tab 03/02/15 08/24/17 History Zolpidem Tartrate [Ambien] 5 mg PO HS #0 tab 07/09/16 08/24/17 History Allopurinol [Zyloprim] 300 mg PO HS 06/27/17 08/24/17 History Aspirin Chewable [ASA] 81 mg PO PM 06/27/17 08/24/17 History Bumetanide Tab [Bumex 1 mg Tab] 1 mg PO DAILY 06/27/17 08/24/17 History Carvedilol 25 mg PO BID 06/27/17 08/24/17 History Coenzyme Q-10 [Co Q-10] 200 mg PO DAILY 06/27/17 08/24/17 History Cyanocobalamin (Vitamin B-12) 1,000 mcg PO 1200 06/27/17 08/24/17 History [Vitamin B-12] Finasteride [Proscar] 5 mg PO PM 06/27/17 08/24/17 History Folic Acid 0.4 mg PO 1200 06/27/17 08/24/17 History Melatonin/Pyridoxine HCl (B6) 6 mg PO HS 06/27/17 08/24/17 History [Melatonin 3 mg Tablet] Potassium Chloride 10 meq PO BID 06/27/17 08/24/17 History Pyridoxine HCl (Vitamin B6) [B-6] 100 mg PO 1200 06/27/17 08/24/17 History Sertraline [Zoloft] 50 mg PO DAILY 06/27/17 08/24/17 History Allergies Allergy/AdvReac Type Severity Reaction Status Date / Time carisoprodol Allergy Severe UNRESPONSIV Verified 08/24/17 18:25 E Sulfa (Sulfonamide Allergy Unknown UNKNOWN Verified 08/24/17 18:25 Antibiotics) morphine AdvReac Unknown HALLUCINATI Verified 08/24/17 18:25 ONS Exam Vital Signs: Temperature 97.9 F 08/24/17 18:17 Pulse Rate 65 08/24/17 19:15 Respiratory Rate 20 08/24/17 20:31 Blood Pressure 107/80 08/24/17 21:00 Pulse Oximetry 98 08/24/17 21:00 Height/Weight/BMI: Height 1.7 m Weight 75.3 kg Body Mass Index 25.9 - Constitutional Present: mild distress (due to mild chest pain) - Routine HEENT Exam ENT: Present: mucous membranes dry - Routine Respiratory Exam Present: CTA bilaterally. Absent: wheezes - Routine Cardiovascular Exam Present: RRR. Absent: murmur - Routine Abdominal Exam Present: soft, normoactive bowel sounds. Absent: tenderness Comments: ascites noted by nursing staff - Routine Extremities Exam Present: normal capillary refill - Routine Skin Exam Present: dry - Routine Neurological Exam Present: alert, CN II-XII intact - Routine Psychiatric Exam Present: normal affect Results - Labs CBC & Chem 7: 08/24/17 18:31 08/24/17 19:55 Assessment and Plan (1) Cardiac arrest Current visit: Yes Status: Acute (2) Hypokalemia Current visit: Yes Status: Acute (3) Hypochloremia Current visit: Yes Status: Acute (4) Hyponatremia Current visit: Yes Status: Acute (5) Chronic renal failure Current visit: Yes Status: Acute (6) Cirrhosis of liver Current visit: Yes Status: Acute (7) Hyperbilirubinemia Current visit: Yes Status: Acute Assessment and Plan: admit patient to ICU. Have pace maker interigated in AM. Patient has severe electrolyte abnormalities, will replace. Check mag level. Give gentle fluid replacement with NS at 100cc/hr overnight. Consider cards consult in AM if patient develops another arrhythmia. DVT Prophylaxis: SCD's, Coumadin GI Prophylaxis: Protonix Resuscitation Status: Full Code - Physician Narrative Narrative: Date: 08/24/17 Time: 2205 Hospital Course Summary Disclaimer: The visit summary below is not to be considered part of the above Progress Note.
[2017-08-24] MEDS ORDERED: FentaNYL 100 MCG/2 ML INJECTION IVP PRN (22:19)
[2017-08-25 04:07] VITALS: TEMP 97.5
[2017-08-25] MEDS: LIDOCAINE 1% INJ 10 MG, POTASSIUM CHLORIDE INJ 10 MEQ in NS 100 ML IV SCH ×3 (05:50→08:28)
[2017-08-25] MEDS ORDERED: POTASSIUM CHLORIDE INJ 40 MEQ in NS 1,000 ML IV SCH (07:30)
--- NOTE | 2017-08-25 08:20 | XRay Report ---
Indication: Post PICC placement PROCEDURE: XR chest 1V: Encounter: Initial Comparison: February 24, 2018 at 1905 Findings: New right PICC line in place with the tip projecting over the lower SVC. Lung benson are stable. No pneumothorax or significant pleural fluid. Cardiomediastinal contours are stable. Prior CABG. Left pacemaker. Pulmonary vascularity is unremarkable. Impression: New right PICC line appears appropriately positioned. There is a preliminary report by virtual radiologic. .
--- NOTE | 2017-08-25 08:27 | XRay Report ---
Indication: Post-resusc PROCEDURE: XR chest 1V: Encounter: Initial Comparison: July 29, 2016 Findings: Overlying monitoring leads. Poststernotomy changes with left cardiac pacemaker. No pneumothorax or focal pneumonia. No gross pleural fluid. Cardiac silhouette remains mild to moderately enlarged. Mediastinal contours are stable. Pulmonary vascularity is unchanged. Impression: Stable appearance of the chest. .
[2017-08-25] MEDS ORDERED: FentaNYL 1,000 MCG in NS 80 ML IVP PRN (08:31)
--- NOTE | 2017-08-25 08:51 | Anesthesia Procedure Note ---
[facility] ANES Consult Intubation - Date and Time Date and Time: 08/25/17 [id number] Diagnosis: acute respiratory distress Allergies/Adverse Reactions: Allergies Allergy/AdvReac Type Severity Reaction Status Date / Time carisoprodol Allergy Severe UNRESPONSIV Verified 08/24/17 18:25 E Sulfa (Sulfonamide Allergy Unknown UNKNOWN Verified 08/24/17 18:25 Antibiotics) morphine AdvReac Unknown HALLUCINATI Verified 08/24/17 18:25 ONS - Vital Signs Initial Vital Signs: Temperature 97.9 F 08/24/17 18:17 Temperature Source Oral 08/24/17 18:17 Sepsis Recent Fever Within 48 Hours No 08/24/17 18:17 Sepsis Suspicion of Infection No 08/24/17 18:17 Sepsis New/Unexplained Change in Mental Status No 08/24/17 18:17 Sepsis Score/Level No Definite Risk 08/24/17 18:17 Sepsis Action Taken by Nursing No Action 08/24/17 18:17 Pulse Rate 81 08/24/17 18:17 Respiratory Rate 16 08/24/17 18:17 Blood Pressure 155/55 H 08/24/17 18:17 Blood Pressure Mean 88 08/24/17 18:17 Pulse Oximetry 95 08/24/17 18:17 Oxygen Delivery Method 08/24/17 18:17 Post Vital Signs: Temperature 97.5 F 08/25/17 04:00 Temperature Source Axillary 08/25/17 04:00 Sepsis Recent Fever Within 48 Hours No 08/24/17 18:17 Sepsis Suspicion of Infection No 08/24/17 18:17 Sepsis New/Unexplained Change in Mental Status No 08/24/17 18:17 Sepsis Score/Level No Definite Risk 08/24/17 18:17 Sepsis Action Taken by Nursing No Action 08/24/17 18:17 Pulse Rate 97 08/25/17 07:45 Pulse Rhythm 08/24/17 19:15 Respiratory Rate 28 H 08/25/17 07:45 Respiratory Effort 08/25/17 04:00 Respiratory Depth Normal 08/25/17 04:00 Respiratory Pattern 08/25/17 04:00 Blood Pressure 147/79 H 08/25/17 07:45 Blood Pressure Mean 101 08/25/17 07:45 Blood Pressure Position Supine 08/25/17 07:00 Pulse Oximetry 98 08/25/17 07:45 Oxygen Delivery Method 08/25/17 07:45 Oxygen Flow Rate 08/25/17 07:45 - Medications Inpatient Medications: Fentanyl (Fentanyl) 25 mcg IVP Q2HR PRN Norepinephrine Bitartrate 4, (000 mcg/ Sodium Chloride) 254 mls @ 38.1 mls/hr IV .Q6H40M PRN; 10 MCG/MIN PRN Reason: Protocol Lidocaine HCl 10 mg/ Potassium Chloride 10 meq/ Sodium Chloride 100 mls @ 100 mls/hr IV .Q1H YESSICA Stop: 08/25/17 09:28 Last Admin: 08/25/17 07:08 Dose: 100 mls/hr Potassium Chloride 40 meq/ (Sodium Chloride) 1,020 mls @ 200 mls/hr IV .Q5H6M YESSICA Last Admin: 08/25/17 07:44 Dose: 200 mls/hr Fentanyl 1,000 mcg/ Sodium (Chloride) 100 mls @ 2.5 mls/hr IVP .Q24H PRN - Home Medications Home Medications: Home Medications Medication Instructions Recorded Confirmed Type Famotidine [Pepcid] 20 mg PO DAILY #0 tab 06/04/13 08/24/17 History Atorvastatin Calcium 40 mg PO PM #0 tab 02/05/14 08/24/17 History Warfarin Sodium 4 mg PO 1700 #0 tab 03/02/15 08/24/17 History Zolpidem Tartrate [Ambien] 5 mg PO HS #0 tab 07/09/16 08/24/17 History Allopurinol [Zyloprim] 300 mg PO HS 06/27/17 08/24/17 History Aspirin Chewable [ASA] 81 mg PO PM 06/27/17 08/24/17 History Bumetanide Tab [Bumex 1 mg Tab] 1 mg PO DAILY 06/27/17 08/24/17 History Carvedilol 25 mg PO BID 06/27/17 08/24/17 History Coenzyme Q-10 [Co Q-10] 200 mg PO DAILY 06/27/17 08/24/17 History Cyanocobalamin (Vitamin B-12) 1,000 mcg PO 1200 06/27/17 08/24/17 History [Vitamin B-12] Finasteride [Proscar] 5 mg PO PM 06/27/17 08/24/17 History Folic Acid 0.4 mg PO 1200 06/27/17 08/24/17 History Melatonin/Pyridoxine HCl (B6) 6 mg PO HS 06/27/17 08/24/17 History [Melatonin 3 mg Tablet] Potassium Chloride 10 meq PO BID 06/27/17 08/24/17 History Pyridoxine HCl (Vitamin B6) [B-6] 100 mg PO 1200 06/27/17 08/24/17 History Sertraline [Zoloft] 50 mg PO DAILY 06/27/17 08/24/17 History - Patient History Patient History: I have evaluated this patient and found no changes in the patient's history. - Pertinent Findings Lab: 08/25/17 04:00 08/25/17 07:22 EKG Rhythm: Pulseless Electrical Activity (pacemaker) - Physical Exam Respiratory: Lungs Clear, Bilateral Breath Sounds Equal Cardiovascular: Pacemaker Other Exam: Consulted by Dr Celsa Esparza for an emergent intubation in CCU due to acute respiratory distress related to cardiac dysrhythmias. Bagged with Ambu bag and 10L O2 to maintain sats while equipment readied. Versed 2mg IV at 0822, Sux 100mg IV at 0824. Intubated with glidescope and #3 blade. Grade 1 view. ETT atraumatically inserted, fog in tube, bilateral breath sounds auscultated, + ETCO2 confirmed. RT in room for assistance and ventilator management. Spoke with family and questions answered. Dr Esparza at bedside during intubation. - Procedure ET Tube Depth at Upper Lip: 21 (at teeth)
[2017-08-25] MEDS ORDERED: ENOXAPARIN 40 MG/0.4 ML INJECTION SQ SCH (09:00)
--- NOTE | 2017-08-25 09:20 | XRay Report ---
Indication: POST CODE PROCEDURE: XR chest 1V: Encounter: Initial Comparison: August 24, 2017 Findings: Interval development of pulmonary edema. No pneumothorax. Left costophrenic angle is not fully included. The exam is marked post intubation. I do not identify an endotracheal tube on this image. Heart size and mediastinal contours are stable. Right PICC line is unchanged in position. Impression: I do not see an endotracheal tube. Developing pulmonary edema. .
[2017-08-25] MEDS ORDERED: MIDAZOLAM 2mg/2ml INJECTION IVP ONE (09:59)
[2017-08-25] MEDS ORDERED: SALINE FLUSH 10ml SYRINGE IV ONE (09:59)
[2017-08-25] MEDS ORDERED: SUCCINYLCHOLINE 20mg/mL 10mL INJECTION IVP ONE (09:59)
--- NOTE | 2017-08-25 10:40 | Progress Note ---
- Date 08/25/17 Subjective: When I arrived this morning Mr. Fonseca was in cardiac arrest, CPR underway. He does have an AICD but it has not fired during his stay here. He has now had multiple episodes of V-tach and Vfib, pulseless, that responded to AED cardioversion. Twice he regained his pulse with epinephrine alone. Initially he was awake and talking to me between code events but at one point was agonal breathing; anesthesia support was requested and he was intubated and is now sedated minimally with fentanyl IV gtt. After discussion with his and son at the bedside, it was determined that he does want full and aggressive care. History of cirrhosis; sees Dr. Martinez for cardiology care, has BiV AICD device in situ. On arrival in the ED he presented with vomiting; he has not been eating for 4-5 days per his . He is on diuretics at home. His son states that his abdomen was "huge" recently and is much smaller now after diuresis. H&P reviewed with initial labs noted; K 1.9, bicarb 54, Mg 2.0. WBC 13.6 and Hb 11.9 at admission. IVF with KCl 40 meq bolused wide open x 1 liter. IV Mag 2g given as the monitor demonstrates a torsades rhythm at one point. IV KCl running throughout as well. Calcium 1g IV given. Discussed with Dr. Dozier's PA (covering [facility] for cardiology) and transfer to [facility] recommended. Discussed with Dr. Calle (Dr. Martinez's covering partner) and agreed with transfer; suggested potentially he is having PEA arrests and we are seeing a paced rhythm on the monitor rather than V tach. Discussed with Dr. Kiah Manjarrez, accepting hospitalist at [facility], and with bed placement regarding ICU bed availability. They have 1 bed coming available in the CICU this morning as a patient is transferring. CTAP to be obtained prior to transfer. Patient stabilized after intubation on norepi, fentanyl, IV K and NS + KCl gtt but had one more brief pulseless episode prior to going to CT. Pulse regained in < 1 minute. I accompanied the patient and staff to the CT scanner and asked that EMS be called for transport. CT scan obtained without further arrhythmias or loss of pulse. Bruising noted to the mid sternal area; CT chest added and completed at the same time for surveillance; this is presumably due to CPR. EMS met us promptly at the CT scanner, discussed events and care with them and all questions answered. Discussed with the patient's and son; they plan to meet him in [place] at [facility]. Cardiology noted of pending transfer. Will update Dr. Joe Manjarrez regarding CT results as soon as available. Objective Vital signs: Temperature 97.5 F 08/25/17 04:00 Pulse Rate 97 08/25/17 07:45 Respiratory Rate 28 H 08/25/17 07:45 Blood Pressure 147/79 H 08/25/17 07:45 Pulse Oximetry 98 08/25/17 07:45 Rhythm: [id number] (as well as V tach, V fib and sinus tatiana at various intervals ), Pulseless Electrical Activity (pacemaker) Height/Weight/BMI: Height 1.7 m Weight 75.3 kg Body Mass Index 25.9 - Constitutional Present: somnolent - Routine HEENT Exam Head: Present: normocephalic, atraumatic Eye: Present: PERRL. Absent: conjunctival icterus ENT: Present: mucous membranes moist, oropharynx clear Comments: ETT intact - Routine Respiratory Exam Present: CTA bilaterally. Absent: rhonchi, crackles - Routine Cardiovascular Exam Comments: Intermittent tachycardia, bradycardia - Routine Abdominal Exam Present: soft, distended (mildly; no palpable fluid wave, hypoactive bowel sounds ) - Routine Extremities Exam Present: no edema, non tender, pulses intact. Absent: cyanosis - Routine Neurological Exam moving all extremities after intubation, opens eyes to voice, following commands - Routine Psychiatric Exam Present: unable to assess Results - Labs CBC & Chem 7: 08/25/17 04:00 08/25/17 07:22 - ABG Interpretation ABG results: 08/25/17 08:58 ABG pH 7.646 H* ABG pCO2 44 ABG pO2 56.5 L ABG HCO3 47.4 H ABG Total CO2 48.7 H ABG O2 Saturation 93.6 L ABG Base Excess 23.8 H - Impressions V-Rad report on CTAP and CT chest done just before transfer resulted with possible aspiration at the right main stem bronchus, small bilateral effusions, + ascites throughout and cirrhosis, possible pancreatitis with distended GB noted Assessment and Plan Assessment and Plan: Assessment: Post-cardiac arrest, multiple events Severe, life threatening hypokalemia Torsades de pointes Severe metabolic alkalosis CKD III, cr 1.3 (? baseline) Hyponatremia, hypovolemic Chronic anemia Liver cirrhosis with ascites Possible gallstone pancreatitis CAD s/p CABG Presumed systolic HF with BiV AICD intact Acute hypoxic resp failure in the setting of cardiac arrest Plan: Patient intubated, stabilized with CPR and medications, sedated with fentanyl Transfer to [facility] for further care including access to subspecialists needed Discussed with accepting hospitalist, entry level truck driver Continued NS + 40 KCl @ 250 cc/hour after bolus was completed KCL 20 meq/hour running currently as well Repeat stat labs pending, will assess when resulted and forward to [facility] Paperwork and disk sent with patient Discussed plan of care with family at length. 110 minutes of critical care time was spent in the care of this patient this morning, including actively managing cardiac arrest events, escorting to CT scan to safely obtain imaging, discussion and coordination with accepting physician, subspecialist and anesthesiologist. DVT Prophylaxis: SCD's Resuscitation Status: Full Code - Time spent with patient Time with patient PN: other (110 minutes) - Physician Narrative Narrative: Date: 08/25/17 Time: 1029 Hospital Course Summary Disclaimer: The visit summary below is not to be considered part of the above Progress Note.
[2017-08-25 11:05] VITALS: BP 170/88; PULSE 83; RESP 14; O2SAT 99
--- NOTE | 2017-08-25 18:35 | Emergency Department Report ---
Emergency Room Note Emergency Room Note: I was paged and responded to the initial code blue page on 08/25/2017. As I entered the room CPR was being initiated and the patient was being easily bagged with a BVM. Upon completion of the 1st cycle of CPR the patient had spontaneous return to circulation and was mentating at his baseline. He was alert and oriented 3 able to speak fully and answer questions. At this time Dr. Esparza the attending physician for the patient entered the room and assumed care of the patient allowing me to return to my duties.
--- NOTE | 2017-08-26 07:53 | CT Scan Report ---
Indication: severe alkalosis, cirrhosis, vomiting PROCEDURE: CT chest/abd/pelvis wo con: Comparison: None Technique: Axial CT images were performed through the chest, abdomen and pelvis without intravenous contrast. Coronal and sagittal two-dimensional reformats. Automated Exposure Control and Iterative Reconstruction dose reducing techniques were utilized. The current CT scan was performed using radiation dose-reduction techniques. CT CHEST FINDINGS: Cardiovascular: The heart is mildly enlarged. Calcific atherosclerotic disease involving the thoracic aorta and coronary arteries of moderate degree. Postsurgical changes of median sternotomy. Left-sided pacer in place. Endotracheal tube is in place. Lymph nodes: Mildly prominent precarinal lymph node measuring 1.3 cm short axis diameter which is likely reactive. No additional enlarged lymph nodes are identified. Lungs: There are small bilateral pleural effusions with subjacent atelectasis or infiltrates. There is no pneumothorax. Mucous/secretions or aspiration within the right mainstem bronchus. Bones: Mild to moderate spondylosis of the thoracolumbar spine. No suspicious or destructive osseous lesions are identified. CT ABDOMEN AND PELVIS FINDINGS: CT ABDOMEN LIVER: The liver demonstrate somewhat nodular appearance which may be secondary to cirrhosis. SPLEEN: Unremarkable. GALLBLADDER: The gallbladder is distended. The gallbladder is somewhat hyperdense and there is noted to be a small calculus layering dependently near the gallbladder neck. PANCREAS: Unremarkable. ADRENAL GLANDS: Unremarkable. KIDNEYS: There is bilateral perinephric fat stranding. There is no hydronephrosis or obstructing calculus. AORTA: Moderate calcific atherosclerotic disease of the aorta and iliac arteries. LYMPH NODES: Scattered subcentimeter mesenteric lymph nodes. STOMACH BOWEL LOOPS: The bowel loops are normal caliber. No evidence for bowel obstruction or free intraperitoneal air. There is mild fecal retention. PERITONEAL CAVITY: Moderate abdominal and pelvic ascites is demonstrated. CT PELVIS URINARY BLADDER: The urinary bladder is decompressed with Calhoun catheter in place. PELVIC VISCERA: The prostate and seminal vesicles are within normal limits. OSSEOUS STRUCTURES: Moderate spondylosis of the thoracolumbar spine. No suspicious or destructive osseous lesions are identified. IMPRESSION: 1. Small bilateral pleural effusions with subjacent atelectasis or infiltrates. Follow-up chest x-rays recommended 2. Cirrhotic liver suggested without visible focal hepatic lesions. Moderate abdominal ascites. 3. Moderate diffuse calcific atherosclerotic disease. 4. Slightly distended gallbladder. Cholelithiasis. 5. Cardiomegaly. .
== END 2017-08-25 10:00 | disposition short-term general hospital (02) | DRG 296 ==
LOC: ED 18:13 → CCU 20:38
PROVIDERS: ADMIT Internal Medicine; ATTEND Internal Medicine